=== PATIENT | female | born 1965 | race Caucasian/White ===

== ENCOUNTER → 2020-08-22 | Outpatient (CLI) | payer OTHER ==
--- NOTE | 2020-08-23 21:22 | CT ---
EXAMINATION TYPE: CT abdomen pelvis w con DATE OF EXAM: 08/22/2020 COMPARISON: None INDICATION: Generalized pain with nausea. DLP: 5389.3 mGycm, Automated exposure control for dose reduction was used. CONTRAST: 100 mL of Isovue 300. Study performed with Oral Contrast TECHNIQUE: Axial images were obtained from above the diaphragm to the pubic rami in the axial plane a t 5 mm thick sections. Reconstructed images are reviewed on the computer in the coronal plane. FINDINGS: Limited CT sections are obtained the lung bases. The lung bases are clear. CT ABDOMEN: Liver: Normal Spleen: There is a splenule anterior to the spleen. The spleen appears unremarkable. Pancreas: Normal Adrenal glands: The adrenal glands are normal. Gallbladder: Gallbladder is surgically absent Kidneys: No masses are evident. No hydronephrosis is present. No cysts are present. Delayed images were obtained through the kidneys, which remain unremarkable. Aorta: Vascular calcification is within the aorta. Inferior vena cava: Normal. CT PELVIS: There is an anterior pelvic wall hernia containing loops of bowel. No obstruction is ident ified. Loops of bowel within the abdomen and pelvis are normal. There are loops of bowel which are incom pletely distended or lack oral contrast limiting their evaluation. Appendix: Not identified. No suspicious dilated tubular structures or inflammatory changes are eviden t. This may reside out of the [id number] within the anterior pelvic wall hernia. Urinary bladder: Normal. Genitourinary structures: Uterus appears normal. There is a large low density left ovarian structure measuring 10.3 x 7.0 cm and 32 Hounsfield units suspicious for a large ovarian cyst. The right adnexa appears normal Osseous structures: No suspicious lytic or sclerotic lesions. Degenerative disc changes are in the lo wer lumbar spine. Some facet hypertrophy is present. IMPRESSIONS: 1. Large pelvic wall hernia containing loops of bowel. No obstruction is identified. 2. Large cystlike area extending from the left adnexal region. This may be a large ovarian cyst. Natividad ent may be at risk for torsion.
== END | disposition home or self-care (01) ==
LOC: RADCTMAIN 09:31
PROVIDERS: ATTEND Surgery Plastic and Reconstructive Surgery
DX: N85.8 Other specified noninflammatory disorders of uterus (principal); K43.9 Ventral hernia without obstruction or gangrene
CPT/HCPCS: 74177; Q9967

== ENCOUNTER 2020-12-08 07:20 | Inpatient (IN) | payer OTHER ==
--- NOTE | 2020-12-07 19:04 | P.GSHP ---
History of Present Illness H&P Date: 12/08/20 CHIEF COMPLAINT: Incisional hernia. HISTORY OF PRESENT ILLNESS: The patient is a 55-year-old female who presents with a history of swelling along the epigastrium. Findings were consistent with incisional hernia. Now she presents for further evaluation and management. PAST MEDICAL HISTORY: Please see list. PAST SURGICAL HISTORY: Please see list. MEDICATIONS: Please see list. ALLERGIES: Please see list. SOCIAL HISTORY: No illicit drug use FAMILY HISTORY: No reports of Crohn disease or ulcerative colitis. REVIEW OF ORGAN SYSTEMS: CONSTITUTIONAL: No reports of fevers or chills. PHYSICAL EXAM: VITAL SIGNS: Stable GENERAL: Well-developed pleasant female in no acute distress. HEENT: No scleral icterus. Extraocular movements grossly intact. Moist buccal mucosa. NECK: Supple without lymphadenopathy. CHEST: Unlabored respirations. Equal bilateral excursions. CARDIOVASCULAR: Regular rate and rhythm. Distal 2+ pulses. ABDOMEN: Protuberant. Extremely large pannus with incisional hernia. MUSCULOSKELETAL: No clubbing, cyanosis, or edema. ASSESSMENT: 1. Incisional ventral hernia. 2. Morbid obesity, BMI 70.4 PLAN: 1. Recommend proceeding with robotic ventral hernia repair with mesh. 2. Benefits and risks of surgical intervention was discussed including poss ibility of open technique. 3. DVT prophylaxis. 4. Antibiotic prophylaxis. 5. Mesh placement also described Past Medical History Past Medical History: Asthma, Heart Failure, COPD, CVA/TIA, Hypertension, Memory Impairment, Myocardial Infarction ([place]) Additional Past Medical History / Comment(s): incisional hernia, hx CVA 2017 and CVA June 22, 2020-generalized weakness and memory impairment, heart murmur,uses oxygen 2 Liters [place],was having heavy menses Jun 2020 Last Myocardial Infarction Date:: 2009 History of Any Multi-Drug Resistant Organisms: None Reported Past Surgical History: Section, Cholecystectomy, Heart Catheterization Additional Past Surgical History / Comment(s): c sections x 3 Past Anesthesia/Blood Transfusion Reactions: No Reported Reaction Additional Past Anesthesia/Blood Transfusion Reaction / Comment(s): no problems with prior blood transfusions Smoking Status: Never smoker - Past Family History Mother Family Medical History: No Reported History Medications and Allergies Home Medications Medication Instructions Recorded Confirmed Type Albuterol Sulfate [Albuterol 1 - 2 puff INHALATION QID PRN 12/05/20 12/05/20 History Sulfate Hfa] Aspirin 325 mg PO DAILY 12/05/20 12/05/20 History Budesonide/Formoterol Fumarate 2 puff INHALATION BID 12/05/20 12/05/20 History [Symbicort 160-4.5 Mcg Inhaler] Cyanocobalamin [Vitamin B-12] 500 mcg PO DAILY 12/05/20 12/05/20 History Diltiazem HCl [Cartia Xt] 300 mg PO QAM 12/05/20 12/05/20 History Ferrous Sulfate [Feosol] 325 mg PO DAILY 12/05/20 12/05/20 History Furosemide [Lasix] 40 mg PO QAM 12/05/20 12/05/20 History Megestrol [Megace] 80 mg PO BID 12/05/20 12/05/20 History lisinopriL [Zestril] 40 mg PO QAM 12/05/20 12/05/20 History Allergies Allergy/AdvReac Type Severity Reaction Status Date / Time cephalexin [From Keflex] Allergy Rash/Hives Verified 12/05/20 13:10 latex Allergy lip and Verified 12/05/20 13:10 tongue swelling Penicillins Allergy Unknown Verified 12/05/20 13:10 Childhood
[~2020-12-08 07:20] MED LIST: CLINDAMYCIN 900 MG in DEXTROSE 5% IN WATER 50 ML IVPB PRN; HEPARIN SODIUM,PORCINE 5,000 UNIT/ML 1 ML VIAL SQ PRN
[2020-12-08] MEDS ORDERED: GABAPENTIN 300 MG CAP PO STA (08:23)
[2020-12-08] MEDS ORDERED: ACETAMINOPHEN TAB 500 MG TAB PO STA (08:23)
[2020-12-08] MEDS ORDERED: LACTATED RINGERS 1,000 ML IV ONE ×2 (08:48→12:16)
[2020-12-08] MEDS ORDERED: LIDOCAINE 1% (10MG/ML) FOR IV START INTRADERMA ONE (08:54)
[2020-12-08] MEDS ORDERED: MELOXICAM 7.5 MG TAB PO ONE (09:00)
[2020-12-08 09:05] LABS: Basophils # (A) 0.1 k/uL (0-0.2); Basophils % (A) 1 %; Eosinophils # (A) 0.4 k/uL (0-0.7); Eosinophils % (A) 4 %; HCT 44.5 % (34.0-46.0); HGB 14.2 gm/dL (11.4-16.0); Hypochromasia Slight; Lymphocytes # (A) 1.9 k/uL (1.0-4.8); Lymphocytes % (A) 18 %; MCH 30.1 pg (25.0-35.0); MCHC 31.9 g/dL (31.0-37.0); MCV 94.1 fL (80.0-100.0); Mean Platelet Volume 8.1; Monocytes # (A) 0.9 k/uL (0-1.0); Monocytes % (A) 8 %; Neutrophils # (A) 7.4 k/uL (1.3-7.7); Neutrophils % (A) 68 %; Platelet Count 281 k/uL (150-450); RBC 4.73 m/uL (3.80-5.40); RDW 13.9 % (11.5-15.5); WBC 10.8 k/uL (3.8-10.6)
[2020-12-08] MEDS ORDERED: fentaNYL (PF) 50 MCG/ML 2 ML AMP IV ONE (09:11)
[2020-12-08] MEDS ORDERED: MIDAZOLAM 2 MG/2 ML VIAL IV ONE (09:11)
[2020-12-08 09:14] LABS: Albumin 4.1 g/dL (3.5-5.0); Calcium 9.6 mg/dL (8.4-10.2); Total Bilirubin 0.6 mg/dL (0.2-1.3); Total Protein 7.3 g/dL (6.3-8.2)
--- NOTE | 2020-12-08 10:03 | P.ANPRN ---
Procedure Note - Anesthesia - Nerve Block Performed Bilateral Erector Spinae Single Time Out Performed: Yes Date of Procedure: 12/08/20 Procedure Start Time: :10 Procedure Stop Time: :40 Location of Patient: PreOp Indication: Acute Post-Operative Pain, Requested by Surgeon Sedation Type: Sedate with meaningful contact maintained Preparation: Sterile Prep, Sterile Dressing Position: Sitting Catheter: None Needle Types: Pajunk Needle Gauge: 20 Ultrasound used to visualize needle placement: Yes Ultrasound used to observe medication spread: Yes Injectate: Other (see comment) (Ropivacaine 0.25% 30 ml per side) Blood Aspirated: No Pain Paresthesia on Injection Noted: No Resistance on Injection: Normal Image Stored and Saved: Yes Events: Uneventful and Well Tolerated
[2020-12-08] MEDS ORDERED: PHENYLEPHRINE 10 MG/ML VIAL ONE (10:26)
[2020-12-08] MEDS ORDERED: GLYCOPYRROLATE 0.2 MG/ML 2 ML VIAL ONE (10:26)
[2020-12-08] MEDS ORDERED: ROPIVACAINE 5 MG/ML 30 ML VIAL ONE (10:26)
[2020-12-08] MEDS ORDERED: PROPOFOL 10 MG/ML 20 ML VIAL IV ONE (10:26)
[2020-12-08] MEDS ORDERED: NEOSTIGMINE 1 MG/ML 10 ML VIAL ONE (10:26)
[2020-12-08] MEDS ORDERED: ROCURONIUM 10 MG/ML (10 ML VIAL) IV ONE (10:26)
[2020-12-08] MEDS ORDERED: fentaNYL (PF) 50 MCG/ML 2 ML AMP ONE (10:26)
[2020-12-08] MEDS ORDERED: SUCCINYLCHOLINE CHLORIDE VIAL 200 MG/10 ML VIAL IV ONE (10:26)
[2020-12-08] MEDS ORDERED: DEXAMETHASONE SOD PHOSPHATE 4 MG/ML 1 ML VIAL ONE (10:26)
[2020-12-08] MEDS ORDERED: LIDOCAINE 1% INJ 10MG/ML (20 ML MDV) ONE (10:26)
[2020-12-08] MEDS ORDERED: LIDOCAINE 1%-EPI 1:100,000 20 ML VIAL SQ ONE (10:33)
[2020-12-08] MEDS ORDERED: ALBUTEROL NEBULIZED 2.5 MG/3 ML INHALATION ONE (14:57)
[2020-12-08] MEDS ORDERED: NALOXONE 0.4 MG/ML 1 ML VIAL IV PRN (15:10)
--- NOTE | 2020-12-08 15:10 | P.OP ---
Date of Procedure: 12/08/20 Description of Procedure: SURGEON: DIXIE Little PREOPERATIVE DIAGNOSES: 1. Recurrent incisional incarcerated ventral hernia 2. Super morbid obesity due to excess calories, BMI 70 3. Pre-existing history of myocardial infarction 4. Congestive heart failure 5. Hypertensive heart disease 6. Panniculitis 7. Chronic obstructive pulmonary disease 8. Iron deficiency anemia 9. History of transient ischemic attack POSTOPERATIVE DIAGNOSES: 1. Recurrent lower abdominal incisional incarcerated ventral hernia with large bowel obstruction, 10 x 15 cm 2. Super morbid obesity due to excess calories, BMI 70 3. Pre-existing history of myocardial infarction 4. Congestive heart failure 5. Hypertensive heart disease 6. Panniculitis 7. Chronic obstructive pulmonary disease 8. Iron deficiency anemia 9. History of transient ischemic attack 10. Peritoneal adhesions greater omentum to abdominal wall OPERATION: 1. Robotic-assisted da Rudy Xi laparoscopic repair of initial incarcerated epigastric ventral hernia with mesh, ventralight ST mesh 15.2 cm circular mesh 2. Robotic-assisted da Rudy Xi laparoscopic lysis of adhesions over 1 hour Anesthesia: GETA, regional, local Estimated Blood Loss (ml): 5 Pathology: None COMPLICATIONS: None. Operative Findings: 1. Lower midline incisional hernia incarcerated greater omentum swish cheese defect 10 x 15 cm 2. Recurrent Pfannenstiel incisional hernia with large bowel obstruction incorporating sigmoid colon, 10 x 15 cm 3. Bilateral inguinal hernias fat containing. 4. Extensive greater omental adhesions with incarceration requiring over 1 hour dissection and lysis of 5. Fascia repaired using #1 V-lock suture prior to mesh placement INDICATIONS: The patient is a 55-year-old female who presents with super morbid obesity BMI over 70 including multiple recurrent lower abdominal hernias as well as panniculitis. Patient is deemed high risk due to BMI over 70, pre-existing cardiac disease and moderate panniculus over 40 pounds. Surgical intervention with laparoscopic versus robotic and open techniques were reviewed. Placement of mesh was also reviewed. Benefits and risks were thoroughly described. Informed consent was obtained. DESCRIPTION OF PROCEDURE: The patient was brought into the operating room and laid in supine position. After general induction, the abdomen had been prepped and draped in standard sterile fashion. Ioban draping was also placed. Prior to incision, a timeout protocol was confirmed with surgical team regarding the patient's name including procedures to be performed. The robot was primed prior to the procedure. A field block using local anesthetic was placed along hernia site including the proposed port sites. Initial incision was made with an #11 blade along the left upper quadrant. A 0 degree 5 mm laparoscopic trocar entry was performed and insufflated. Three 8 mm ports were placed along the right lateral abdominal wall under direct visualization. She has extremely moderate-sized pannus requiring extensive positioning as well as additional two 8-mm trochars placed along the upper abdomen. Placements of the ports were 15 cm from the target anatomy and 10 cm apart. Diagnostic laparoscopy demonstrated greater omental adhesions of the lower abd omen incorporating the umbilicus as well as a previous Pfannenstiel incision involving small intestine including large bowel of the sigmoid colon. An accessory 12 mm port was placed at the right upper quadrant for exchange of mesh including sutures. She was repositioned in 5 Trendelenburg position due to her moderately sized pannus. The da Rudy Xi robot was previously primed, prepped and draped then docked from the right side of the patient onto the left side of the patient. I then sat at the robot Da Rudy Xi console where working arms of the robot including Bovie cautery connected to robotic scissors, needle laborer driver, and graspers placed by the regulatory assistant. Incarcerated omental contents were found along the lower midline defect including umbilicus and previous Pfannenstiel incision involving sigmoid colon. The lower midline defect and multiple other smaller defects incarcerated with fat were reduced. The [place]i cheese defect was over 6 cm extending into the deep subcutaneous tissue. A separate fascial defect at her previous Pfannenstiel incision and reopened incorporating the sigmoid colon. The colonic adhesions were dissected free to allow for complete reduction of the colon into the abdominal cavity. The total size of the defects were 15 x 20 cm with multiple pockets and extended to the deep subcutaneous tissue all which were reduced. Separate bilateral inguinal hernias were found and fat containing. The hernia defects were oversewn using #1 nonabsorbable V-lock suture for each defect separately with fascial imbrication x 2. The open hernia defects were completely closed primarily. Next, ventralight ST mesh 15.2 cm circular mesh was cut in half and placed with the rough side towards the abdominal wall as to cover lower midline including Pfannenstiel incisional hernias. 2-0 VLOC 9 inch nonabsorbable sutures were used to fixate the mesh. A final endoscopic imaging was obtained. All instruments and pneumoperitoneum were evacuated from the abdominal cavity. The da Rudy Xi robot was undocked from the patient. I re-scrubbed into the case for closure of incisions. The fascia of the 12-mm port was probed and less than 8-mm in size. The incisio ns were reapproximated using 4-0 Monocryl in an interrupted subcuticular fashion. Liquid glue was applied to the skin after cleansing the skin with normal saline and dilute hydrogen peroxide. An abdominal binder was placed. At the end of the procedure, needle, sponge, and instrument count had been verified correct by surgical dental assistant. The patient was taken to the postanesthesia care unit in stable condition. COMPLEXITY: Overall, patient presents with moderate complexity including super morbid obesity BMI 70.7 as well as multiple recurrent incarcerated hernias, intra-abdominal adhesions and large and small bowel obstruction requiring over 2 hours for repair.
[2020-12-08 15:36] LABS: Glucose,Whole Blood 192 mg/dL (75-99)
[2020-12-08] MEDS ORDERED: SODIUM CHLORIDE 0.9% 1,000 ML IV ONE (16:40)
[2020-12-08] MEDS: CYCLOBENZAPRINE 10 MG TAB PO SCH ×2 (17:36→22:20)
[2020-12-08] MEDS: GABAPENTIN 300 MG CAP PO SCH ×2 (17:36→22:20)
[2020-12-08] MEDS: ACETAMINOPHEN TAB 500 MG TAB PO SCH ×2 (17:37→23:46)
[2020-12-08] MEDS: ONDANSETRON 4 MG/2 ML VIAL IVP SCH ×2 (17:37→23:46)
[2020-12-08] MEDS ORDERED: ACETAMINOPHEN IV (For NPO) 1,000 MG in EMPTY BAG 1 BAG IVPB ONE (18:00)
[2020-12-08] MEDS ORDERED: LEVOFLOXACIN 500MG-D5W PMX 500 MG in DEXTROSE/WATER 1 100ML.BAG IVPB ONE (18:00)
--- NOTE | 2020-12-08 18:10 | P.CONS ---
History of Present Illness - Reason for Consult Consult date: 12/08/20 medical managment - Chief Complaint hernia repair - History of Present Illness 55-year-old female with hx of morbid obesity, COPD, CHF, recent stroke and TIAs. She presents with swelling in the abdomen. She was found to have abdominal incisional hernia. She was admitted to general surgery service. Today she underwent hernia repair. During surgery she was found to have recurrent lower abdominal incisional incarcerated ventral hernia with large bowel obstruction. Currently she is doing well. She is having some abdominal pain. No chest pain or shortness of breath. No fevers or chills. Review of Systems Complete review of system performed, pertinent positives per HPI, otherwise negative Past Medical History Past Medical History: Asthma, Heart Failure, COPD, CVA/TIA, Hypertension, Memory Impairment, Myocardial Infarction ([place]) Additional Past Medical History / Comment(s): incisional hernia, hx CVA 2017 and CVA June 22, 2020-generalized weakness and memory impairment, heart murmur,uses oxygen 2 Liters [place],was having heavy menses Jun 2020 Last Myocardial Infarction Date:: 2009 History of Any Multi-Drug Resistant Organisms: None Reported Past Surgical History: Section, Cholecystectomy, Heart Catheterization Additional Past Surgical History / Comment(s): c sections x 3 Past Anesthesia/Blood Transfusion Reactions: No Reported Reaction Additional Past Anesthesia/Blood Transfusion Reaction / Comm: no problems with prior blood transfusions Past Psychological History: No Psychological Hx Reported Smoking Status: Never smoker Past Alcohol Use History: None Reported Past Drug Use History: None Reported - Past Family History Mother Family Medical History: No Reported History Medications and Allergies Home Medications Medication Instructions Recorded Confirmed Type Albuterol Sulfate [Albuterol 1 - 2 puff INHALATION QID PRN 12/05/20 12/05/20 History Sulfate Hfa] Aspirin 325 mg PO DAILY 12/05/20 12/05/20 History Budesonide/Formoterol Fumarate 2 puff INHALATION BID 12/05/20 12/05/20 History [Symbicort 160-4.5 Mcg Inhaler] Cyanocobalamin [Vitamin B-12] 500 mcg PO DAILY 12/05/20 12/05/20 History Diltiazem HCl [Cartia Xt] 300 mg PO QAM 12/05/20 12/05/20 History Ferrous Sulfate [Feosol] 325 mg PO DAILY 12/05/20 12/05/20 History Furosemide [Lasix] 40 mg PO QAM 12/05/20 12/05/20 History Megestrol [Megace] 80 mg PO BID 12/05/20 12/05/20 History lisinopriL [Zestril] 40 mg PO QAM 12/05/20 12/05/20 History Allergies Allergy/AdvReac Type Severity Reaction Status Date / Time cephalexin [From Keflex] Allergy Rash/Hives Verified 12/08/20 08:23 latex Allergy lip and Verified 12/08/20 08:23 tongue swelling Penicillins Allergy Unknown Verified 12/08/20 08:23 Childhood Physical Exam Vitals: Vital Signs Temp Pulse Pulse Resp BP Pulse Ox 12/08/20 17:04 98.2 F 92 18 151/78 94 L 12/08/20 16:23 90 18 162/70 100 12/08/20 16:08 89 18 164/70 99 12/08/20 15:53 91 18 155/72 99 12/08/20 15:38 90 18 148/65 99 12/08/20 15:23 92 16 167/70 98 12/08/20 15:08 90 12 160/69 100 12/08/20 14:53 97.1 F L 93 8 L 159/72 93 L 12/08/20 08:28 98.2 F 76 16 161/73 95 Intake and Output 12/08/20 12/08/20 12/08/20 06:59 14:59 22:59 Intake Total 1955 130 Output Total 5 Balance 1950 130 Intake: IV 1955 130 Output: Estimated Blood Loss 5 Other: Weight 175.3 kg 175.3 kg Constitutional: No acute distress, conversant, pleasant Eyes:Anicteric sclerae, moist conjunctiva, no lid-lag, PERRLA, ENMT: Oropharynx clear, no erythema, exudates Neck: Supple, FROM, no masses, or JVD, No carotid bruits, No thyromegaly Lungs: Clear to auscultation, Clear to percussion, Normal respiratory effort, no accessory muscle use Cardiovascular: Heart regular in rate and rhythm, No murmurs, gallops, or rubs, No peripheral edema Abdominal: Surgical dressings, no guarding, rebound or rigidity, Normoactive bowel sounds, No hepatomegaly, No splenomegaly, No palpable mass Skin: Normal temperature, tone, texture, turgor, no induration, No subcutaneous nodules, No rash, lesions, No ulcers Extremities: No digital cyanosis, No clubbing, Pedal pulses intact and symmetric al, Radial pulses intact and symmetrical, No calf tenderness Psychiatric: Alert and oriented to person, place and time, appropriate affect, intact judgement Neuro: Muscles Strength 5/5 in all 4 extremities, Sensation to light touch grossly present throughout, Cranial nerves II-XII grossly intact, no focal sensory deficits Results CBC & Chem 7: 12/08/20 08:46 12/08/20 08:46 Labs: Abnormal Lab Results - Last 24 Hours (Table) 12/08/20 12/08/20 12/08/20 Range/Units 08:46 08:46 15:33 WBC 10.8 H (3.8-10.6) k/uL Chloride 108 H (98-107) mmol/L BUN 35 H (7-17) mg/dL Creatinine 1.92 H (0.52-1.04) mg/dL Glucose 152 H (74-99) mg/dL POC Glucose (mg/dL) 192 H (75-99) mg/dL Assessment and Plan Plan: Recurrent lower abdominal incisional incarcerated ventral hernia with large bowel obstruction Pain control per surgery service Started on Levaquin by general surgery service Add Flagyl for anaerobic coverage COPD on 2L at baseline Continue home inhalers. Incentive spirometry Morbid obesity Structured outpatient weight loss Chronic Asthma, CHF Hx of CVA/TIA, Hypertension, All stable resume meds DVT prophylaxis Start AC as soon as ok by surgery.
[2020-12-08] MEDS: metroNIDAZOLE-NS PMX 500 MG in SALINE 1 100ML.BAG IVPB SCH (19:13)
[2020-12-08] MEDS: MEGESTROL 40 MG TAB PO SCH (19:15)
[2020-12-08] MEDS: DOCUSATE 100 MG CAP PO SCH (19:15)
[2020-12-08] MEDS: SYMBICORT 160-4.5 MCG INHALER INHALATION SCH (19:38)
[2020-12-09] MEDS: metroNIDAZOLE-NS PMX 500 MG in SALINE 1 100ML.BAG IVPB SCH ×3 (02:47→19:41)
[2020-12-09] MEDS: ACETAMINOPHEN TAB 500 MG TAB PO SCH ×3 (06:07→18:18)
[2020-12-09] MEDS: ONDANSETRON 4 MG/2 ML VIAL IVP SCH ×3 (06:08→18:19)
[2020-12-09] MEDS: FERROUS SULFATE 325 MG TAB PO SCH (08:17)
[2020-12-09] MEDS: MEGESTROL 40 MG TAB PO SCH ×2 (08:17→21:25)
[2020-12-09] MEDS: GABAPENTIN 300 MG CAP PO SCH ×3 (08:17→21:25)
[2020-12-09] MEDS: CYCLOBENZAPRINE 10 MG TAB PO SCH ×3 (08:18→21:25)
[2020-12-09] MEDS: ENOXAPARIN 40 MG/0.4 ML SYRINGE SQ SCH (08:18)
[2020-12-09] MEDS: ASPIRIN 325 MG TAB PO SCH (08:18)
[2020-12-09] MEDS: DOCUSATE 100 MG CAP PO SCH ×2 (08:18→21:25)
[2020-12-09] MEDS: SYMBICORT 160-4.5 MCG INHALER INHALATION SCH ×2 (08:20→20:58)
[2020-12-09] MEDS: IPRATROPIUM-ALBUTEROL 3 ML NEB INHALATION PRN (08:20)
[2020-12-09] MEDS ORDERED: FUROSEMIDE 40 MG TAB PO SCH (09:00)
[2020-12-09] MEDS ORDERED: PANTOPRAZOLE 40 MG/10 ML VIAL IV SCH (09:00)
[2020-12-09] MEDS ORDERED: lisinopriL 20 MG TAB PO SCH (09:00)
[2020-12-09] MEDS: DILTIAZEM CD 300 MG CAP.ER.24H PO SCH (09:01)
--- NOTE | 2020-12-09 12:00 | P.NPCON ---
History of Present Illness - Reason for Consult acute renal failure - History of Present Illness Reason for consultation: Acute kidney injury History of present illness: Patient is a 55-year-old female seen in consultation for acute kidney injury. Patient has history of swelling along the epigastrium. She is noted to have incisional ventral hernia. She underwent surgical intervention on December 08. Creatinine yesterday was noted to be 1.92. Labs from today are pending. She does a history of high blood pressure and is maintained on Cardizem, lisinopril as well as Lasix. Blood pressure this admission has been stable. Oral intake is good. Good urine output. No hematuria or dysuria. No vomiting or diarrhea. She is tolerating regular diet. Denies regular use of nonsteroidals. She did receive a dose of meloxicam yesterday. Denies any personal history of kidney disease. Denies family history of kidney disease. No history of diabetes. Vital signs are stable. General: The patient appeared well nourished and normally developed. HEENT: Head exam is unremarkable. Neck is without jugular venous distension. LUNGS: Breath sounds decreased. HEART: Rate and Rhythm are regular. ABDOMEN: Soft, mild tenderness. EXTREMITITES: No edema. Past Medical History Past Medical History: Asthma, Heart Failure, COPD, CVA/TIA, Hypertension, Memory Impairment, Myocardial Infarction ([place]) Additional Past Medical History / Comment(s): incisional hernia, hx CVA 2017 and CVA June 22, 2020-generalized weakness and memory impairment, heart murmur,uses oxygen 2 Liters [place],was having heavy menses Jun 2020 Last Myocardial Infarction Date:: 2009 History of Any Multi-Drug Resistant Organisms: None Reported Past Surgical History: Section, Cholecystectomy, Heart Catheterization Additional Past Surgical History / Comment(s): c sections x 3 Past Anesthesia/Blood Transfusion Reactions: No Reported Reaction Additional Past Anesthesia/Blood Transfusion Reaction / Comment(s): no problems with prior blood transfusions Past Psychological History: No Psychological Hx Reported Smoking Status: Never smoker Past Alcohol Use History: None Reported Past Drug Use History: None Reported - Past Family History Mother Family Medical History: No Reported History Medications and Allergies Home Medications Medication Instructions Recorded Confirmed Type Albuterol Sulfate [Albuterol 1 - 2 puff INHALATION QID PRN 12/05/20 12/05/20 History Sulfate Hfa] Aspirin 325 mg PO DAILY 12/05/20 12/05/20 History Budesonide/Formoterol Fumarate 2 puff INHALATION BID 12/05/20 12/05/20 History [Symbicort 160-4.5 Mcg Inhaler] Cyanocobalamin [Vitamin B-12] 500 mcg PO DAILY 12/05/20 12/05/20 History Diltiazem HCl [Cartia Xt] 300 mg PO QAM 12/05/20 12/05/20 History Ferrous Sulfate [Feosol] 325 mg PO DAILY 12/05/20 12/05/20 History Furosemide [Lasix] 40 mg PO QAM 12/05/20 12/05/20 History Megestrol [Megace] 80 mg PO BID 12/05/20 12/05/20 History lisinopriL [Zestril] 40 mg PO QAM 12/05/20 12/05/20 History Allergies Allergy/AdvReac Type Severity Reaction Status Date / Time cephalexin [From Keflex] Allergy Rash/Hives Verified 12/08/20 08:23 latex Allergy lip and Verified 12/08/20 08:23 tongue swelling Penicillins Allergy Unknown Verified 12/08/20 08:23 Childhood Physical Exam Vitals: Vital Signs Temp Pulse Pulse Pulse Resp BP Pulse Ox 12/09/20 11:00 97.3 F L 92 19 123/68 95 12/09/20 08:30 77 12/09/20 08:20 76 12/09/20 03:46 98.5 F 97 16 125/69 94 L 12/08/20 22:36 98.2 F 93 16 144/77 96 12/08/20 19:26 18 12/08/20 17:04 98.2 F 92 18 151/78 94 L 12/08/20 16:23 90 18 162/70 100 12/08/20 16:08 89 18 164/70 99 12/08/20 15:53 91 18 155/72 99 12/08/20 15:38 90 18 148/65 99 12/08/20 15:23 92 16 167/70 98 12/08/20 15:08 90 12 160/69 100 12/08/20 14:53 97.1 F L 93 8 L 159/72 93 L Intake and Output 12/08/20 12/09/20 12/09/20 22:59 06:59 14:59 Intake Total 650 800 Balance 650 800 Intake: IV 130 Intake, IV Titration 100 440 Amount Levofloxacin 500Mg-D5w 100 Pmx 500 mg In Dextrose/ Water 1 100ml.bag @ 100 mls/hr IVPB ONCE ONE Rx#: [id number] Sodium Chloride 0.9% 1, 240 000 ml @ 0 mls/hr IV .STK -MED ONE Rx#:[id number] metroNIDAZOLE-NS PMX 500 200 mg In Saline 1 100ml.bag @ 100 mls/hr IVPB Q8H [facility] [place] Rx#:[id number] Oral 420 360 Other: Voiding Method Toilet # Voids 1 Weight 175.3 kg Results - Lab Results Most recent lab results Calcium 9.6 mg/dL (8.4-10.2) 12/08/20 08:46 12/08/20 08:46 12/08/20 08:46 Assessment and Plan Plan: Assessment: 1. Acute kidney injury mostly prerenal from diuretics and further worsened with the use of nonsteroidal and HA inhibitor. Creatinine 1.9 yesterday. Unknown baseline renal function. 2. Benign hypertension. Controlled. 3. Status post ventral hernia repair 12/08/2020. Plan: Hold lisinopril for systolic blood pressure less than 130. Hold Lasix. She already received this morning's dose. Encourage oral intake. Avoid nephrotoxins. Check urinalysis. Check renal ultrasound. Continue to monitor renal function and urine output. Thank you for the consultation. I will continue to follow the patient with you during her hospital stay.
--- NOTE | 2020-12-09 12:14 | P.PN ---
Subjective Progress Note Date: 12/09/20 CHIEF COMPLAINT: Recurrent incarcerated incisional hernia HISTORY OF PRESENT ILLNESS: The patient is a 55-year-old female with large recurrent incarcerated incisional hernia including super morbid obesity, BMI 70.7. Yesterday preoperatively she was found to have elevated creatinine with renal insufficiency. She has pre-existing heart disease including recent stroke less than 1 year ago. As result of pre-existing sleep apnea, stroke, heart disease, renal insufficiency, patient was admitted following surgery. She denies any pre-existing history of known kidney dysfunction as she presented with elevated WBC and elevated creatinine. She is pleased with her cosmetic result following surgery. ROS: No reports of nausea and vomiting. No bowel movements. No fevers or chills. No new chest pain. No productive sputum PHYSICAL EXAM: VITAL SIGNS: Reviewed CONSTITUTIONAL: Well developed and in no acute distress. EYES: Conjuctivae without sclera icterus. Extraocular movements grossly intact. HEAD, EARS, NOSE, THROAT: Moist buccal mucosa. Head is atraumatic, normocephalic. Hears conversational speech. No nasal drainage. NECK: Supple. No thyroidomegaly. RESPIRATORY: Non-labored respirations and equal bilateral excursions. CARDIOVASCULAR: Palpable 2+ radial pulses. ABDOMEN: Incisions clean dry and intact. Soft. No peritonitis. Abdominal binder poorly fitted and removed by me. Pannus over 40+ pounds. Grade 5 panniculus. MUSCULOSKELETAL: No gross deformity of the lower extremities noted. No clubbing. No cyanosis. SKIN: Good skin turgor. Well perfused. NEUROLOGIC: Cranial nerves II through XII grossly intact. No focal or lateralizing signs. PSYCH: Appropriate affect. Alert and oriented to person, place and time. CLINICAL LABS: White blood cell count at 10.8 on admission, elevated. Creatinine elevated 1.92. ASSESSMENT: 1. Large recurrent incarcerated incisional hernia with bowel obstruction 2. Grade 5 panniculus 3. Renal insufficiency, stage 3, present on admission 4. Severe hypopnea with obstructive sleep apnea 5. Super morbid obesity, BMI 70+ 6. History of congestive heart failure with coronary artery disease. PLAN: 1. Recommend full inpatient admission secondary to recent patient of large recurrent incarcerated incisional hernia with bowel obstruction. 2. Medicine consultation for multiple medical comorbidities 3. Pulmonary consultation for severe hypoxemia sleep apnea syndrome, pre- existing 4. Nephrology consultation for renal insufficiency, present on admission 5. Cardiology consultation for congestive heart failure 6. Bariatric referral with dietitian 7. Inpatient hospitalization over 3 to 4 nights described 8. Care plan discussed with patient including over the phone. Objective - Vital Signs Vital signs: Vital Signs Temp 98.5 F 12/09/20 03:46 Pulse 77 12/09/20 08:30 Resp 16 12/09/20 03:46 BP 125/69 12/09/20 03:46 Pulse Ox 94 L 12/09/20 03:46 Intake & Output 12/08/20 12/09/20 12/09/20 18:59 06:59 18:59 Intake Total 2186 1220 Output Total 5 Balance 2181 1220 Weight 175.3 kg Intake: IV 2086 Intake, IV Titration 100 440 Amount Levofloxacin 500Mg-D5w 100 Pmx 500 mg In Dextrose/ Water 1 100ml.bag @ 100 mls/hr IVPB ONCE ONE Rx#: [id number] Sodium Chloride 0.9% 1, 240 000 ml @ 0 mls/hr IV .STK -MED ONE Rx#:[id number] metroNIDAZOLE-NS PMX 500 200 mg In Saline 1 100ml.bag @ 100 mls/hr IVPB Q8H [facility] Rx#:[id number] Oral 780 Output: Estimated Blood Loss 5 Other: # Voids 1 - Labs CBC & Chem 7: 12/08/20 08:46 12/08/20 08:46 Labs: Abnormal Lab Results - Last 24 Hours (Table) 12/08/20 Range/Units 15:33 POC Glucose (mg/dL) 192 H (75-99) mg/dL Assessment and Plan (1) Stage III chronic kidney disease Current Visit: Yes Status: Acute Code(s): N18.30 - CHRONIC KIDNEY DISEASE, STAGE 3 UNSPECIFIED SNOMED Code(s): 321638380 (2) Obstructive sleep apnea hypopnea, moderate Current Visit: Yes Status: Acute Code(s): G47.33 - OBSTRUCTIVE SLEEP APNEA (ADULT) (PEDIATRIC) SNOMED Code(s): 19095239 (3) Abdominal adhesions Current Visit: Yes Status: Acute Code(s): K66.0 - PERITONEAL ADHESIONS (POSTPROCEDURAL) (POSTINFECTION) SNOMED Code(s): 302979542 (4) Morbid obesity with BMI of 70 and over, adult Current Visit: Yes Status: Acute Code(s): E66.01 - MORBID (SEVERE) OBESITY DUE TO EXCESS CALORIES; Z68.45 - BODY MASS INDEX [BMI] 70 OR GREATER, ADULT SNOMED Code(s): 948489805 (5) Recurrent incisional hernia with incarceration Current Visit: Yes Status: Acute Code(s): K43.0 - INCISIONAL HERNIA WITH OBSTRUCTION, WITHOUT GANGRENE SNOMED Code(s): 499309158 (6) Congestive heart failure with LV diastolic dysfunction, NYHA class 2 Current Visit: Yes Status: Acute Code(s): I50.30 - UNSPECIFIED DIASTOLIC (CONGESTIVE) HEART FAILURE SNOMED Code(s): 681047591
[2020-12-09 12:23] LABS: African American GFR (CKD) 32.2 (60.0-200.0); Albumin/Globulin Ratio 1.67 (1.60-3.17); Anion Gap 7.5 mmol/L (4.00-12.00); BUN/Creat Ratio 20.5 Ratio (12.00-20.00); Calcium 9.6 mg/dL (8.7-10.3); Carbon Dioxide 23.5 mmol/L (21.6-31.8); Globulin 2.4 g/dL (1.6-3.3); Non-African American GFR(CKD) 27.8 (60.0-200.0); Potassium 5.7 mmol/L (3.5-5.5); Total Bilirubin 0.3 mg/dL (0.2-1.2); Total Protein 6.4 g/dL (6.2-8.2)
[2020-12-09 13:00] LABS: ABG Base Excess -5.2 mmol/L; ABG HCO3 21 mmol/L (21-25); ABG Oxygen Saturation 92.7 % (94-97); ABG PCO2 40 mmHg (35-45); ABG PH 7.33 (7.35-7.45); ABG PO2 70 mmHg (83-108); ABG TCO2 22 mmol/L (19-24); Allen Test Performed? Yes
--- NOTE | 2020-12-09 14:26 | P.CNPUL ---
History of Present Illness Consult date: 12/09/20 Requesting physician: Emiliana Briseno Reason for consult: dyspnea, obstructive sleep apnea Chief complaint: Possible sleep apnea syndrome, pickwickian syndrome. History of present illness: 55-year-old female who we are asked to see for possible sleep apnea syndrome/pickwickian syndrome. The patient apparently underwent a repair of an abdominal incisional incarcerated ventral hernia. It was done by Dr. Briseno. The surgery was done yesterday. Today's postop day #1. The patient is mo rbidly obese, and has a history of heart failure, hypertension, and underlying COPD. In addition, the patient likely has sleep apnea syndrome, and/or pickwickian syndrome. Today, the patient is a bit sleepy. She apparently required CPAP on a previous admission. The procedure was a robotically assisted laparoscopic repair of incarcerated ventral hernia with mesh. Currently, the patient is on 2 L of oxygen. Saturations are 95%. We wrote orders for her to be on BiPAP tonight, with an IPAP of 12 and EPAP of 4. She will need outpatient evaluation for possible sleep apnea, and/or pickwickian syndrome. During this hospitalization, narcotics, sedatives, hypnotics, and tranquilizers should be avoided if possible. The patient should be encouraged to deep breathe, cough, and clear secretions, and also use an incentive spirometer, every hour while awake. In addition, we will make sure the patient has Symbicort and albuterol, which is what she takes at home. Review of Systems REVIEW OF SYSTEMS: CONSTITUTIONAL: Excessive daytime sleepiness. NEUROLOGIC: [ Negative.] HEENT: [ Negative.] CARDIAC: [Negative.] PULMONARY: Shortness of breath on exertion. GI: Abdominal pain from recent surgery. : [Negative.] RHEUMATOLOGIC: [ Negative.] IMMUNOLOGIC: [ Negative.] ENDOCRINE: [Negative. ] DERMATOLOGIC: [Negative.] Past Medical History Past Medical History: Asthma, Heart Failure, COPD, CVA/TIA, Hypertension, Memory Impairment, Myocardial Infarction ([place]) Additional Past Medical History / Comment(s): incisional hernia, hx CVA 2017 and CVA June 22, 2020-generalized weakness and memory impairment, heart murmur,uses oxygen 2 Liters [place],was having heavy menses Jun 2020 Last Myocardial Infarction Date:: 2009 History of Any Multi-Drug Resistant Organisms: None Reported Past Surgical History: Section, Cholecystectomy, Heart Catheterization Additional Past Surgical History / Comment(s): c sections x 3 Past Anesthesia/Blood Transfusion Reactions: No Reported Reaction Additional Past Anesthesia/Blood Transfusion Reaction / Comment(s): no problems with prior blood transfusions Past Psychological History: No Psychological Hx Reported Smoking Status: Never smoker Past Alcohol Use History: None Reported Past Drug Use History: None Reported - Past Family History Mother Family Medical History: No Reported History Medications and Allergies Home Medications Medication Instructions Recorded Confirmed Type Albuterol Sulfate [Albuterol 1 - 2 puff INHALATION QID PRN 12/05/20 12/05/20 History Sulfate Hfa] Aspirin 325 mg PO DAILY 12/05/20 12/05/20 History Budesonide/Formoterol Fumarate 2 puff INHALATION BID 12/05/20 12/05/20 History [Symbicort 160-4.5 Mcg Inhaler] Cyanocobalamin [Vitamin B-12] 500 mcg PO DAILY 12/05/20 12/05/20 History Diltiazem HCl [Cartia Xt] 300 mg PO QAM 12/05/20 12/05/20 History Ferrous Sulfate [Feosol] 325 mg PO DAILY 12/05/20 12/05/20 History Furosemide [Lasix] 40 mg PO QAM 12/05/20 12/05/20 History Megestrol [Megace] 80 mg PO BID 12/05/20 12/05/20 History lisinopriL [Zestril] 40 mg PO QAM 12/05/20 12/05/20 History Allergies Allergy/AdvReac Type Severity Reaction Status Date / Time cephalexin [From Keflex] Allergy Rash/Hives Verified 12/08/20 08:23 latex Allergy lip and Verified 12/08/20 08:23 tongue swelling Penicillins Allergy Unknown Verified 12/08/20 08:23 Childhood Physical Exam Osteopathic Statement: *. No significant issues noted on an osteopathic structural exam other than those noted in the History and Physical/Consult. Vitals: Vital Signs Temp Pulse Pulse Pulse Resp BP Pulse Ox 12/09/20 11:00 97.3 F L 92 19 123/68 95 12/09/20 08:30 77 12/09/20 08:20 76 12/09/20 03:46 98.5 F 97 16 125/69 94 L 12/08/20 22:36 98.2 F 93 16 144/77 96 12/08/20 19:26 18 12/08/20 17:04 98.2 F 92 18 151/78 94 L 12/08/20 16:23 90 18 162/70 100 12/08/20 16:08 89 18 164/70 99 12/08/20 15:53 91 18 155/72 99 12/08/20 15:38 90 18 148/65 99 12/08/20 15:23 92 16 167/70 98 12/08/20 15:08 90 12 160/69 100 12/08/20 14:53 97.1 F L 93 8 L 159/72 93 L Intake and Output 12/08/20 12/09/20 12/09/20 22:59 06:59 14:59 Intake Total 650 800 Balance 650 800 Intake: IV 130 Intake, IV Titration 100 440 Amount Levofloxacin 500Mg-D5w 100 Pmx 500 mg In Dextrose/ Water 1 100ml.bag @ 100 mls/hr IVPB ONCE ONE Rx#: [id number] Sodium Chloride 0.9% 1, 240 000 ml @ 0 mls/hr IV .STK -MED ONE Rx#:[id number] metroNIDAZOLE-NS PMX 500 200 mg In Saline 1 100ml.bag @ 100 mls/hr IVPB Q8H [facility] Rx#:[id number] Oral 420 360 Other: Voiding Method Toilet # Voids 1 Weight 175.3 kg No acute distress, oriented 3. The patient is a bit lethargic and somnolent. She is wearing O2 at 2 L. HEENT examination is grossly unremarkable. Mucous membranes are moist. No oral lesions. Neck supple. Full range of motion. No adenopathy thyromegaly or neck vein distention. Cardiovascular examination reveals regular rhythm rate. S1-S2 normal. No S3 or S4. No discernible murmur noted. Heart rate is 77 bpm. Heart sounds are distant. Lungs reveal diminished bilateral breath sounds. A few scattered rhonchi. No wheezes or crackles. Abdomen soft bowel sounds are heard. No masses or tenderness. Extremities are intact. No cyanosis clubbing or edema. Skin is without rash or lesion. Neurologic examination is brief but nonfocal. Results - Laboratory Findings CBC and BMP: 12/08/20 08:46 12/09/20 06:56 ABG ABG pH 7.33 (7.35-7.45) L 12/09/20 12:36 ABG pCO2 40 mmHg (35-45) 12/09/20 12:36 ABG pO2 70 mmHg (83-108) L 12/09/20 12:36 ABG O2 Saturation 92.7 % (94-97) L 12/09/20 12:36 Abnormal lab findings: Abnormal Labs 12/08/20 12/08/20 12/08/20 08:46 08:46 15:33 WBC 10.8 H ABG pH ABG pO2 ABG O2 Saturation Potassium Chloride 108 H BUN 35 H Creatinine 1.92 H Est GFR (CKD-EPI)AfAm Est GFR (CKD-EPI)NonAf BUN/Creatinine Ratio Glucose 152 H POC Glucose (mg/dL) 192 H 12/09/20 12/09/20 06:56 12:36 WBC ABG pH 7.33 L ABG pO2 70 L ABG O2 Saturation 92.7 L Potassium 5.7 H Chloride BUN 41.0 H Creatinine 2.0 H Est GFR (CKD-EPI)AfAm 32.2 L Est GFR (CKD-EPI)NonAf 27.8 L BUN/Creatinine Ratio 20.50 H Glucose 196 H POC Glucose (mg/dL) Assessment and Plan Assessment: Postop day #1, status post robotically assisted repair of incarcerated ventral hernia. Morbid obesity. Probable obstructive sleep apnea syndrome and/or pickwickian syndrome (obesity/hypoventilation syndrome 0. History of chronic bronchial asthma. History of heart failure. History of CVA. History of essential hypertension. History of myocardial infarction. Chronic hypoxemic respiratory failure. Lifelong nontobacco user. Plan: Plan dated 12/09/2020. The patient should be instructed to use Symbicort 160/4.5, 2 puffs twice a day, and albuterol, 2 puffs when necessary. In addition, the patient should be instructed to deep breathe, cough, and clear secretions. If possible, narcotics, sedatives, hypnotics, and tranquilizers should be avoided. She will need outpatient evaluation for her sleep apnea syndrome. We would be happy to see her once discharged. In our office, the patient would have a complete pulmonary function test, a 6 minute walk distance, and likely be set up for a in home or outpatient polysomnogram. We will continue to follow this patient. Finally, we did put in orders for BiPAP tonight, with an IPAP of 12 and EPAP of 4, and an FiO2 that maintains a saturation between 90 and 93%. Time with Patient: Greater than 30
[2020-12-09] MEDS ORDERED: SODIUM POLYSTYRENE SULFONATE 15 GM/60 ML BOTTLE PO STA (14:31)
--- NOTE | 2020-12-09 14:37 | P.PN ---
Subjective Progress Note Date: 12/09/20 Principal diagnosis: Incarcerated hernia Patient is doing okay today, she was sitting on the chair, ate all of her lunch. No fevers or chills. No shortness of breath. Pain is controlled. Objective - Vital Signs Vital signs: Vital Signs Temp 97.3 F L 12/09/20 11:00 Pulse 92 12/09/20 11:00 Resp 19 12/09/20 11:00 BP 123/68 12/09/20 11:00 Pulse Ox 95 12/09/20 11:00 Intake & Output 12/08/20 12/09/20 12/09/20 18:59 06:59 18:59 Intake Total 2186 1220 Output Total 5 Balance 2181 1220 Weight 175.3 kg Intake: IV 2086 Intake, IV Titration 100 440 Amount Levofloxacin 500Mg-D5w 100 Pmx 500 mg In Dextrose/ Water 1 100ml.bag @ 100 mls/hr IVPB ONCE ONE Rx#: [id number] Sodium Chloride 0.9% 1, 240 000 ml @ 0 mls/hr IV .STK -MED ONE Rx#:[id number] metroNIDAZOLE-NS PMX 500 200 mg In Saline 1 100ml.bag @ 100 mls/hr IVPB Q8H [facility] Rx#:[id number] Oral 780 Output: Estimated Blood Loss 5 Other: Voiding Method Toilet # Voids 1 - Labs CBC & Chem 7: 12/08/20 08:46 12/09/20 06:56 Labs: Abnormal Lab Results - Last 24 Hours (Table) 12/08/20 12/09/20 12/09/20 Range/Units 15:33 06:56 12:36 ABG pH 7.33 L (7.35-7.45) ABG pO2 70 L (83-108) mmHg ABG O2 Saturation 92.7 L (94-97) % Potassium 5.7 H (3.5-5.5) mmol/L BUN 41.0 H (9.0-27.0) mg/dL Creatinine 2.0 H (0.6-1.5) mg/dL Est GFR (CKD-EPI)AfAm 32.2 L (60.0-200.0) Est GFR (CKD-EPI)NonAf 27.8 L (60.0-200.0) BUN/Creatinine Ratio 20.50 H (12.00-20.00) Ratio Glucose 196 H (70-110) mg/dL POC Glucose (mg/dL) 192 H (75-99) mg/dL Assessment and Plan Plan: Recurrent lower abdominal incisional incarcerated ventral hernia with large bowel obstruction Pain control per surgery service Continue Levaquin and Flagyl Acute renal failure with hyperkalemia Unknown baseline creatinine Seen by nephrology Kayexalate 30 g 1 today Follow up creatinine and potassium in the morning COPD on 2L at baseline Continue home inhalers. Incentive spirometry Seen by pulmonary Morbid obesity Structured outpatient weight loss Chronic Asthma, CHF Hx of CVA/TIA, Hypertension, All stable resume meds DVT prophylaxis Lovenox subcu Anticipated discharge: 2-3 days Disposition: Likely home
[2020-12-09] MEDS: SODIUM CHLORIDE 0.9% 1,000 ML IV SCH (15:15)
[2020-12-09 15:39] VITALS: BMI 70.7
[2020-12-09] MEDS ORDERED: INSULIN REGULAR 100 UNIT/ML VIAL IV ONE (17:06)
[2020-12-09] MEDS ORDERED: DEXTROSE 50% SYRINGE 50 ML IVP STA (17:06)
--- NOTE | 2020-12-09 17:27 | US ---
EXAMINATION TYPE: US kidneys/renal and bladder DATE OF EXAM: 12/09/2020 COMPARISON: NONE CLINICAL HISTORY: josafat. EXAM MEASUREMENTS: Right Kidney: 12.9 x 4.0 x 4.7 cm Left Kidney: 12.6 x 4.3 x 5.4 cm Patient 5'2", 386lbs. Technically difficult, limited study. Right Kidney: Simple appearing cyst measuring 1.2 x 1.1 x 1.2cm. No hydronephrosis. Left Kidney: No hydronephrosis. Bladder: Not seen, due to body habitus. IMPRESSION: No bilateral hydronephrosis.
[2020-12-09] MEDS ORDERED: LEVOFLOXACIN 250MG-D5W PMX 250 MG in DEXTROSE/WATER 1 50ML.BAG IVPB SCH (18:00)
[2020-12-09 18:29] LABS: Appearance,Urine Cloudy (Clear); Bacteria,Urine Occasional /hpf; Bilirubin,Urine Negative (Negative); Blood,Urine Moderate (Negative); Color,Urine Yellow; Glucose,Urine (UA) Negative (Negative); Hyaline Casts,Urine 1 /lpf (0-2); Ketones,Urine Negative (Negative); Leukocyte Esterase,Urine Small (Negative); Mucus,Urine Rare /hpf; Nitrite,Urine Negative (Negative); Protein,Urine Negative (Negative); RBC,Urine 7 /hpf (0-5); Specific Gravity,Urine 1.013 (1.001-1.035); Squamous Epithelial Cell,Urine 3 /hpf (0-4); Urobilinogen,Urine <2.0 mg/dL (<2.0); WBC,Urine 16 /hpf (0-5)
[2020-12-10] MEDS: ACETAMINOPHEN TAB 500 MG TAB PO SCH ×4 (00:06→17:59)
[2020-12-10] MEDS: ONDANSETRON 4 MG/2 ML VIAL IVP SCH ×4 (00:07→17:58)
[2020-12-10] MEDS: SODIUM CHLORIDE 0.9% 1,000 ML IV SCH (00:35)
[2020-12-10] MEDS: metroNIDAZOLE-NS PMX 500 MG in SALINE 1 100ML.BAG IVPB SCH ×3 (03:13→19:24)
[2020-12-10 06:37] LABS: Basophils % (A) 0 %; Eosinophils % (A) 0 %; HCT 38.8 % (34.0-46.0); HGB 11.8 gm/dL (11.4-16.0); Hypochromasia Marked; Lymphocytes % (A) 9 %; MCH 29.5 pg (25.0-35.0); MCHC 30.4 g/dL (31.0-37.0); MCV 97.1 fL (80.0-100.0); Mean Platelet Volume 8.6; Monocytes # (A) 0.7 k/uL (0-1.0); Monocytes % (A) 6 %; Neutrophils # (A) 9.4 k/uL (1.3-7.7); Neutrophils % (A) 84 %; Platelet Count 222 k/uL (150-450); RBC 3.99 m/uL (3.80-5.40); RDW 14.1 % (11.5-15.5); WBC 11.3 k/uL (3.8-10.6)
[2020-12-10] MEDS: SYMBICORT 160-4.5 MCG INHALER INHALATION SCH ×2 (07:13→20:24)
[2020-12-10] MEDS: CYCLOBENZAPRINE 10 MG TAB PO SCH ×3 (07:48→21:30)
[2020-12-10] MEDS: MEGESTROL 40 MG TAB PO SCH ×2 (07:48→21:30)
[2020-12-10] MEDS: PANTOPRAZOLE 40 MG TABLET PO SCH (07:48)
[2020-12-10] MEDS: FERROUS SULFATE 325 MG TAB PO SCH (07:48)
[2020-12-10] MEDS: DOCUSATE 100 MG CAP PO SCH ×2 (07:48→21:30)
[2020-12-10] MEDS: GABAPENTIN 300 MG CAP PO SCH ×3 (07:48→21:30)
[2020-12-10] MEDS: ASPIRIN 325 MG TAB PO SCH (07:48)
[2020-12-10] MEDS: ENOXAPARIN 40 MG/0.4 ML SYRINGE SQ SCH (07:49)
[2020-12-10] MEDS: DILTIAZEM CD 300 MG CAP.ER.24H PO SCH (07:49)
[2020-12-10 09:39] LABS: African American GFR (CKD) 34.3 (60.0-200.0); Anion Gap 6.4 mmol/L (4.00-12.00); BUN/Creat Ratio 23.68 Ratio (12.00-20.00); Calcium 7.8 mg/dL (8.7-10.3); Carbon Dioxide 19.6 mmol/L (21.6-31.8); Magnesium 1.6 mg/dL (1.5-2.4); Non-African American GFR(CKD) 29.6 (60.0-200.0); Potassium 4.8 mmol/L (3.5-5.5)
[2020-12-10] MEDS ORDERED: ceFAZolin 3 GM in SODIUM CHLORIDE 0.9% 100 ML IVPB ONE (10:00)
--- NOTE | 2020-12-10 10:42 | P.PN ---
Subjective Patient is seen in follow-up for acute kidney injury. Renal function stable. Potassium level now normal. She was started on IV fluids yesterday. Lisinopril and Lasix were put discontinued. Oral intake is good. Has been voiding. Blood pressure is stable. Vital signs are stable. General: The patient appeared well nourished and normally developed. HEENT: Head exam is unremarkable. Neck is without jugular venous distension. LUNGS: Breath sounds decreased. HEART: Rate and Rhythm are regular. ABDOMEN: Soft, obese. EXTREMITITES: No edema. Objective - Vital Signs Vital signs: Vital Signs Temp 97.9 F 12/10/20 04:12 Pulse 64 12/10/20 04:12 Resp 20 12/10/20 04:12 BP 110/66 12/10/20 04:12 Pulse Ox 97 12/10/20 04:12 Intake & Output 12/09/20 12/10/20 12/10/20 18:59 06:59 18:59 Intake Total 2089 Balance 2089 Weight 175.3 kg Intake: Intake, IV Titration 900 Amount Sodium Chloride 0.9% 1, 900 000 ml @ 75 mls/hr IV . [id number] [facility] Rx#:[id number] Oral 1190 Other: Voiding Method Toilet Toilet # Voids 1 - Labs CBC & Chem 7: 12/10/20 05:39 12/10/20 05:39 Labs: Abnormal Lab Results - Last 24 Hours (Table) 12/09/20 12/09/20 12/09/20 Range/Units 06:56 12:36 17:38 WBC (3.8-10.6) k/uL MCHC (31.0-37.0) g/dL Neutrophils # (1.3-7.7) k/uL ABG pH 7.33 L (7.35-7.45) ABG pO2 70 L (83-108) mmHg ABG O2 Saturation 92.7 L (94-97) % Potassium 5.7 H (3.5-5.5) mmol/L Chloride (96-109) mmol/L Carbon Dioxide (21.6-31.8) mmol/L BUN 41.0 H (9.0-27.0) mg/dL Creatinine 2.0 H (0.6-1.5) mg/dL Est GFR (CKD-EPI)AfAm 32.2 L (60.0-200.0) Est GFR (CKD-EPI)NonAf 27.8 L (60.0-200.0) BUN/Creatinine Ratio 20.50 H (12.00-20.00) Ratio Glucose 196 H (70-110) mg/dL Calcium (8.7-10.3) mg/dL Urine Appearance Cloudy H (Clear) Urine Blood Moderate H (Negative) Ur Leukocyte Esterase Small H (Negative) Urine RBC 7 H (0-5) /hpf Urine WBC 16 H (0-5) /hpf Urine Bacteria Occasional H (None) /hpf Urine Mucus Rare H (None) /hpf 12/09/20 12/10/20 12/10/20 Range/Units 19:56 05:39 05:39 WBC 11.3 H (3.8-10.6) k/uL MCHC 30.4 L (31.0-37.0) g/dL Neutrophils # 9.4 H (1.3-7.7) k/uL ABG pH (7.35-7.45) ABG pO2 (83-108) mmHg ABG O2 Saturation (94-97) % Potassium 5.6 H (3.5-5.5) mmol/L Chloride 113 H (96-109) mmol/L Carbon Dioxide 19.6 L (21.6-31.8) mmol/L BUN 45.0 H (9.0-27.0) mg/dL Creatinine 1.9 H (0.6-1.5) mg/dL Est GFR (CKD-EPI)AfAm 34.3 L (60.0-200.0) Est GFR (CKD-EPI)NonAf 29.6 L (60.0-200.0) BUN/Creatinine Ratio 23.68 H (12.00-20.00) Ratio Glucose 126 H (70-110) mg/dL Calcium 7.8 L (8.7-10.3) mg/dL Urine Appearance (Clear) Urine Blood (Negative) Ur Leukocyte Esterase (Negative) Urine RBC (0-5) /hpf Urine WBC (0-5) /hpf Urine Bacteria (None) /hpf Urine Mucus (None) /hpf Assessment and Plan Plan: Assessment: 1. Acute kidney injury mostly prerenal from diuretics and further worsened with the use of nonsteroidal and HA inhibitor. Creatinine peaked at 2 this admission and is 1.9 today. Unknown baseline renal function. No proteinuria on UA. No hydronephrosis noted on kidney ultrasound. 2. Benign hypertension. Controlled. 3. Status post ventral hernia repair 12/08/2020. 4. Hyperkalemia secondary to acute kidney injury and lisinopril. Improved. 5. Metabolic acidosis secondary to acute kidney injury and IV fluids. Plan: Continue to hold lisinopril and Lasix. Hep-Lock IV fluids. Add oral bicarb. Encourage oral intake. Avoid nephrotoxins. Continue to monitor renal function and urine output.
--- NOTE | 2020-12-10 12:07 | P.PN ---
Subjective Progress Note Date: 12/10/20 CHIEF COMPLAINT: Recurrent incarcerated incisional hernia HISTORY OF PRESENT ILLNESS: The patient is a 55-year-old female status post repair of large recurrent incarcerated incisional hernia 12/08/2020 including super morbid obesity, BMI 70.7. She presented with pre-existing kidney disease prior to surgery and leukocytosis. Nephrology, medicine and pulmonary consultation was obtained from moderate to severe renal disease, pickwikian syndrome, and multiple medical co-morbidities. Her pain is well controlled. Bariatric dietitian was obtained for weight loss and renal diet adjustment. She is sitting up in chair. ROS: No reports of nausea and vomiting. No fevers or chills. No new chest pain. No productive sputum PHYSICAL EXAM: VITAL SIGNS: Reviewed CONSTITUTIONAL: Well developed and in no acute distress. EYES: Conjuctivae without sclera icterus. Extraocular movements grossly intact. HEAD, EARS, NOSE, THROAT: Moist buccal mucosa. Head is atraumatic, normocephalic. Hears conversational speech. No nasal drainage. RESPIRATORY: Non-labored respirations and equal bilateral excursions. CARDIOVASCULAR: Palpable 2+ radial pulses. ABDOMEN: Incisions clean dry and intact. Soft. No peritonitis. Abdominal binder poorly fitted and removed by me. Pannus over 40+ pounds. Grade 5 pann iculus. MUSCULOSKELETAL: No gross deformity of the lower extremities noted. No clubbing. No cyanosis. SKIN: Good skin turgor. Well perfused. NEUROLOGIC: Cranial nerves II through XII grossly intact. No focal or lateralizing signs. PSYCH: Appropriate affect. Alert and oriented to person, place and time. CLINICAL LABS: White blood cell count at 10.8 on admission, elevated now 11.4. Creatinine elevated 1.92 to 2.0 now 1.9. Potassium down 5.7 to 4.8. REPORTS: US kidney without hydronephrosis EKG: Normal sinus rhythm. ASSESSMENT: 1. Large recurrent incarcerated incisional hernia with bowel obstruction 2. Grade 5 panniculus 3. Renal insufficiency, stage 3, present on admission 4. Severe hypopnea with obstructive sleep apnea 5. Super morbid obesity, BMI 70+ 6. Hyperkalemia 7. Leukocytosis PLAN: 1. Inpatient admission due presentation of large and small bowel obstruction with incisional hernia including kidney disease and severe obstructive sleep apnea. 2. She received Ancef 3 g without any allergic reaction. Will discontinue from allergy list. 3. Discharge pending clearance from multiple specialists 4. Referral to bariatric center as outpatient. Objective - Vital Signs Vital signs: Vital Signs Temp 97.7 F 12/10/20 10:54 Pulse 69 12/10/20 10:54 Resp 18 12/10/20 10:54 BP 120/68 12/10/20 10:54 Pulse Ox 95 12/10/20 10:54 Intake & Output 12/09/20 12/10/20 12/10/20 18:59 06:59 18:59 Intake Total 2089 Balance 2089 Weight 175.3 kg Intake: Intake, IV Titration 900 Amount Sodium Chloride 0.9% 1, 900 000 ml @ 75 mls/hr IV . [id number] [facility] Rx#:[id number] Oral 1190 Other: Voiding Method Toilet Toilet Toilet # Voids 1 - Labs CBC & Chem 7: 12/10/20 05:39 12/10/20 05:39 Labs: Abnormal Lab Results - Last 24 Hours (Table) 12/09/20 12/09/20 12/09/20 Range/Units 06:56 12:36 17:38 WBC (3.8-10.6) k/uL MCHC (31.0-37.0) g/dL Neutrophils # (1.3-7.7) k/uL ABG pH 7.33 L (7.35-7.45) ABG pO2 70 L (83-108) mmHg ABG O2 Saturation 92.7 L (94-97) % Potassium 5.7 H (3.5-5.5) mmol/L Chloride (96-109) mmol/L Carbon Dioxide (21.6-31.8) mmol/L BUN 41.0 H (9.0-27.0) mg/dL Creatinine 2.0 H (0.6-1.5) mg/dL Est GFR (CKD-EPI)AfAm 32.2 L (60.0-200.0) Est GFR (CKD-EPI)NonAf 27.8 L (60.0-200.0) BUN/Creatinine Ratio 20.50 H (12.00-20.00) Ratio Glucose 196 H (70-110) mg/dL Calcium (8.7-10.3) mg/dL Urine Appearance Cloudy H (Clear) Urine Blood Moderate H (Negative) Ur Leukocyte Esterase Small H (Negative) Urine RBC 7 H (0-5) /hpf Urine WBC 16 H (0-5) /hpf Urine Bacteria Occasional H (None) /hpf Urine Mucus Rare H (None) /hpf 12/09/20 12/10/20 12/10/20 Range/Units 19:56 05:39 05:39 WBC 11.3 H (3.8-10.6) k/uL MCHC 30.4 L (31.0-37.0) g/dL Neutrophils # 9.4 H (1.3-7.7) k/uL ABG pH (7.35-7.45) ABG pO2 (83-108) mmHg ABG O2 Saturation (94-97) % Potassium 5.6 H (3.5-5.5) mmol/L Chloride 113 H (96-109) mmol/L Carbon Dioxide 19.6 L (21.6-31.8) mmol/L BUN 45.0 H (9.0-27.0) mg/dL Creatinine 1.9 H (0.6-1.5) mg/dL Est GFR (CKD-EPI)AfAm 34.3 L (60.0-200.0) Est GFR (CKD-EPI)NonAf 29.6 L (60.0-200.0) BUN/Creatinine Ratio 23.68 H (12.00-20.00) Ratio Glucose 126 H (70-110) mg/dL Calcium 7.8 L (8.7-10.3) mg/dL Urine Appearance (Clear) Urine Blood (Negative) Ur Leukocyte Esterase (Negative) Urine RBC (0-5) /hpf Urine WBC (0-5) /hpf Urine Bacteria (None) /hpf Urine Mucus (None) /hpf Assessment and Plan (1) Stage III chronic kidney disease Current Visit: Yes Status: Acute Code(s): N18.30 - CHRONIC KIDNEY DISEASE, STAGE 3 UNSPECIFIED SNOMED Code(s): 704497377 (2) Obstructive sleep apnea hypopnea, moderate Current Visit: Yes Status: Acute Code(s): G47.33 - OBSTRUCTIVE SLEEP APNEA (ADULT) (PEDIATRIC) SNOMED Code(s): 27126212 (3) Abdominal adhesions Current Visit: Yes Status: Acute Code(s): K66.0 - PERITONEAL ADHESIONS (POS TPROCEDURAL) (POSTINFECTION) SNOMED Code(s): 921708038 (4) Morbid obesity with BMI of 70 and over, adult Current Visit: Yes Status: Acute Code(s): E66.01 - MORBID (SEVERE) OBESITY DUE TO EXCESS CALORIES; Z68.45 - BODY MASS INDEX [BMI] 70 OR GREATER, ADULT SNOMED Code(s): 482594055 (5) Recurrent incisional hernia with incarceration Current Visit: Yes Status: Acute Code(s): K43.0 - INCISIONAL HERNIA WITH OBSTRUCTION, WITHOUT GANGRENE SNOMED Code(s): 516960901 (6) Hyperkalemia Current Visit: Yes Status: Acute Code(s): E87.5 - HYPERKALEMIA SNOMED Code(s): 83543893 (7) Pickwickian syndrome Current Visit: Yes Status: Acute Code(s): E66.2 - MORBID (SEVERE) OBESITY WITH ALVEOLAR HYPOVENTILATION SNOMED Code(s): 951838988
[2020-12-10] MEDS: SODIUM BICARBONATE TAB 650 MG TAB PO SCH ×2 (12:12→21:30)
--- NOTE | 2020-12-10 14:38 | P.PN ---
Subjective Progress Note Date: 12/10/20 Principal diagnosis: Incarcerated ventral hernia, status post repair 55-year-old female who we are asked to see for possible sleep apnea syndrome/pickwickian syndrome. The patient apparently underwent a repair of an abdominal incisional incarcerated ventral hernia. It was done by Dr. Briseno. The surgery was done yesterday. Today's postop day #1. The patient is morbidly obese, and has a history of heart failure, hypertension, and underlying COPD. In addition, the patient likely has sleep apnea syndrome, and/or pickwickian syndrome. Today, the patient is a bit sleepy. She apparently required CPAP on a previous admission. The procedure was a robotically assisted laparoscopic repair of incarcerated ventral hernia with mesh. Currently, the patient is on 2 L of oxygen. Saturations are 95%. We wrote orders for her to be on BiPAP tonight, with an IPAP of 12 and EPAP of 4. She will need outpatient evaluation for possible sleep apnea, and/or pickwickian syndrome. During this hospitalization, narcotics, sedatives, hypnotics, and tranquilizers should be avoided if possible. The patient should be encouraged to deep breathe, cough, and clear secretions, and also use an incentive spirometer, every hour while awake. In addition, we will make sure the patient has Symbicort and albuterol, which is what she takes at home. The patient is seen today 12/10/2020 in follow-up on the regular medical floor. She is status post repair of an abdominal incisional incarcerated ventral hernia. Postoperative day #2. She was having some hypoxemia we are consulted for the same. She was placed on BiPAP last night which she tolerated for just a few hours. 12 over 4 and 35% FiO2. She is currently seen up in a chair at the bedside. She is on room air. O2 saturations in the mid 90s. Awake and alert in no acute distress. White count 11.3. Hemoglobin 11.8. Sodium 139. Potassium 4.8. Creatinine 1.9. Troponin negative. ProBNP 290. She remains on Symbicort, DuoNeb inhalations, Lovenox, Flagyl. Objective - Vital Signs Vital signs: Vital Signs Temp 97.7 F 12/10/20 10:54 Pulse 69 12/10/20 10:54 Resp 18 12/10/20 10:54 BP 120/68 12/10/20 10:54 Pulse Ox 95 12/10/20 10:54 Intake & Output 12/09/20 12/10/20 12/10/20 18:59 06:59 18:59 Intake Total 2089 Balance 2089 Weight 175.3 kg Intake: Intake, IV Titration 900 Amount Sodium Chloride 0.9% 1, 900 000 ml @ 75 mls/hr IV . [id number] [facility] Rx#:[id number] Oral 1190 Other: Voiding Method Toilet Toilet Toilet # Voids 1 - Exam GENERAL EXAM: Alert, pleasant, morbidly obese 55-year-old female patient, on kaye m air, comfortable in no apparent distress. HEAD: Normocephalic. EYES: Normal reaction of pupils, equal size. NOSE: Clear with pink turbinates. THROAT: No erythema or exudates. NECK: No masses, no JVD. CHEST: No chest wall deformity. LUNGS: Equal air entry with no crackles, wheeze, rhonchi or dullness. CVS: S1 and S2 normal with no audible murmur, regular rhythm. ABDOMEN: Puncture sites clean and dry well approximated. Morbidly obese unable to appreciate for hepatosplenomegaly, normal bowel sounds, no guarding or rigidity. SPINE: No scoliosis or deformity SKIN: No rashes CENTRAL NERVOUS SYSTEM: No focal deficits, tone is normal in all 4 extremities. EXTREMITIES: There is no peripheral edema. No clubbing, no cyanosis. Peripheral pulses are intact. - Labs CBC & Chem 7: 12/10/20 05:39 12/10/20 05:39 Labs: Abnormal Lab Results - Last 24 Hours (Table) 12/09/20 12/09/20 12/10/20 Range/Units 17:38 19:56 05:39 WBC (3.8-10.6) k/uL MCHC (31.0-37.0) g/dL Neutrophils # (1.3-7.7) k/uL Potassium 5.6 H (3.5-5.1) mmol/L Chloride 113 H (96-109) mmol/L Carbon Dioxide 19.6 L (21.6-31.8) mmol/L BUN 45.0 H (9.0-27.0) mg/dL Creatinine 1.9 H (0.6-1.5) mg/dL Est GFR (CKD-EPI)AfAm 34.3 L (60.0-200.0) Est GFR (CKD-EPI)NonAf 29.6 L (60.0-200.0) BUN/Creatinine Ratio 23.68 H (12.00-20.00) Ratio Glucose 126 H (70-110) mg/dL Calcium 7.8 L (8.7-10.3) mg/dL Urine Appearance Cloudy H (Clear) Urine Blood Moderate H (Negative) Ur Leukocyte Esterase Small H (Negative) Urine RBC 7 H (0-5) /hpf Urine WBC 16 H (0-5) /hpf Urine Bacteria Occasional H (None) /hpf Urine Mucus Rare H (None) /hpf 12/10/20 Range/Units 05:39 WBC 11.3 H (3.8-10.6) k/uL MCHC 30.4 L (31.0-37.0) g/dL Neutrophils # 9.4 H (1.3-7.7) k/uL Potassium (3.5-5.1) mmol/L Chloride (96-109) mmol/L Carbon Dioxide (21.6-31.8) mmol/L BUN (9.0-27.0) mg/dL Creatinine (0.6-1.5) mg/dL Est GFR (CKD-EPI)AfAm (60.0-200.0) Est GFR (CKD-EPI)NonAf (60.0-200.0) BUN/Creatinine Ratio (12.00-20.00) Ratio Glucose (70-110) mg/dL Calcium (8.7-10.3) mg/dL Urine Appearance (Clear) Urine Blood (Negative) Ur Leukocyte Esterase (Negative) Urine RBC (0-5) /hpf Urine WBC (0-5) /hpf Urine Bacteria (None) /hpf Urine Mucus (None) /hpf Assessment and Plan Assessment: 1 Postop day #2, status post robotically assisted repair of incarcerated ventral hernia. 2 Morbid obesity. BMI 70 3 Suspect obstructive sleep apnea syndrome and/or pickwickian syndrome (obesity/hypoventilation syndrome) 4 History of chronic bronchial asthma. 5 History of heart failure. 6 History of CVA. 7 History of essential hypertension. 8 History of myocardial infarction. 9 Chronic hypoxemic respiratory failure. 10 Lifelong nontobacco user. Plan: The patient was seen and evaluated by Dr. Gomez Presently stable from the pulmonary standpoint Encourage cough and deep breathing exercises Continue BiPAP at night as tolerated Outpatient evaluation for suspected obstructive sleep apnea Home once cleared surgically I, the cosigning physician, performed a history & physical examination of the patient. Lungs sounds are clear. Maintaining good O2 saturations in the 90s on room air. I discussed the assessment and plan of care with my nurse practitioner, Pauline Arroyo. I attest to the above note as dictated by her.
--- NOTE | 2020-12-10 17:59 | P.PN ---
Subjective Progress Note Date: 12/10/20 Principal diagnosis: Incarcerated hernia Patient is doing well, denied having any complaint. No significant pain. No shortness of breath. No fevers. Objective - Vital Signs Vital signs: Vital Signs Temp 97.7 F 12/10/20 17:00 Pulse 64 12/10/20 17:00 Resp 19 12/10/20 17:00 BP 122/67 12/10/20 17:00 Pulse Ox 96 12/10/20 17:00 Intake & Output 12/09/20 12/10/20 12/10/20 18:59 06:59 18:59 Intake Total 2089 Balance 2089 Weight 175.3 kg Intake: Intake, IV Titration 900 Amount Sodium Chloride 0.9% 1, 900 000 ml @ 75 mls/hr IV . [id number] [facility] Rx#:[id number] Oral 1190 Other: Voiding Method Toilet Toilet Toilet # Voids 1 - Exam Constitutional: No acute distress, conversant, pleasant Eyes:Anicteric sclerae, moist conjunctiva, no lid-lag, PERRLA, ENMT: Oropharynx clear, no erythema, exudates Neck: Supple, FROM, no masses, or JVD, No carotid bruits, No thyromegaly Lungs: Clear to auscultation, Clear to percussion, Normal respiratory effort, no accessory muscle use Cardiovascular: Heart regular in rate and rhythm, No murmurs, gallops, or rubs, No peripheral edema Abdominal: Surgical dressings, no guarding, rebound or rigidity, Normoactive bowel sounds, No hepatomegaly, No splenomegaly, No palpable mass Skin: Normal temperature, tone, texture, turgor, no induration, No subcutaneous nodules, No rash, lesions, No ulcers Extremities: No digital cyanosis, No clubbing, Pedal pulses intact and symmetrical, Radial pulses intact and symmetrical, No calf tenderness Psychiatric: Alert and oriented to person, place and time, appropriate affect, intact judgement Neuro: Muscles Strength 5/5 in all 4 extremities, Sensation to light touch grossly present throughout, Cranial nerves II-XII grossly intact, no focal sensory deficits - Labs CBC & Chem 7: 12/10/20 05:39 12/10/20 05:39 Labs: Abnormal Lab Results - Last 24 Hours (Table) 12/09/20 12/09/20 12/10/20 Range/Units 17:38 19:56 05:39 WBC (3.8-10.6) k/uL MCHC (31.0-37.0) g/dL Neutrophils # (1.3-7.7) k/uL Potassium 5.6 H (3.5-5.1) mmol/L Chloride 113 H (96-109) mmol/L Carbon Dioxide 19.6 L (21.6-31.8) mmol/L BUN 45.0 H (9.0-27.0) mg/dL Creatinine 1.9 H (0.6-1.5) mg/dL Est GFR (CKD-EPI)AfAm 34.3 L (60.0-200.0) Est GFR (CKD-EPI)NonAf 29.6 L (60.0-200.0) BUN/Creatinine Ratio 23.68 H (12.00-20.00) Ratio Glucose 126 H (70-110) mg/dL Calcium 7.8 L (8.7-10.3) mg/dL Urine Appearance Cloudy H (Clear) Urine Blood Moderate H (Negative) Ur Leukocyte Esterase Small H (Negative) Urine RBC 7 H (0-5) /hpf Urine WBC 16 H (0-5) /hpf Urine Bacteria Occasional H (None) /hpf Urine Mucus Rare H (None) /hpf 12/10/20 Range/Units 05:39 WBC 11.3 H (3.8-10.6) k/uL MCHC 30.4 L (31.0-37.0) g/dL Neutrophils # 9.4 H (1.3-7.7) k/uL Potassium (3.5-5.1) mmol/L Chloride (96-109) mmol/L Carbon Dioxide (21.6-31.8) mmol/L BUN (9.0-27.0) mg/dL Creatinine (0.6-1.5) mg/dL Est GFR (CKD-EPI)AfAm (60.0-200.0) Est GFR (CKD-EPI)NonAf (60.0-200.0) BUN/Creatinine Ratio (12.00-20.00) Ratio Glucose (70-110) mg/dL Calcium (8.7-10.3) mg/dL Urine Appearance (Clear) Urine Blood (Negative) Ur Leukocyte Esterase (Negative) Urine RBC (0-5) /hpf Urine WBC (0-5) /hpf Urine Bacteria (None) /hpf Urine Mucus (None) /hpf Assessment and Plan Plan: Recurrent lower abdominal incisional incarcerated ventral hernia with large bowel obstruction Pain control per surgery service Continue Levaquin and Flagyl Acute renal failure with hyperkalemia Improved Hold lisinopril and Lasix Unknown baseline creatinine Seen by nephrology Follow up creatinine and potassium in the morning COPD on 2L at baseline Continue home inhalers. Incentive spirometry Seen by pulmonary Morbid obesity Structured outpatient weight loss Chronic Asthma, CHF Hx of CVA/TIA, Hypertension, All stable resume meds DVT prophylaxis Lovenox subcu Anticipated discharge: 1-2 days Disposition: Likely home
[2020-12-10] MEDS ORDERED: LEVOFLOXACIN 250 MG TAB PO SCH (18:00)
[2020-12-11] MEDS: ONDANSETRON 4 MG/2 ML VIAL IVP SCH ×3 (00:58→12:05)
[2020-12-11] MEDS: ACETAMINOPHEN TAB 500 MG TAB PO SCH ×3 (00:58→12:04)
[2020-12-11] MEDS: metroNIDAZOLE-NS PMX 500 MG in SALINE 1 100ML.BAG IVPB SCH ×2 (03:06→12:03)
[2020-12-11] MEDS: SYMBICORT 160-4.5 MCG INHALER INHALATION SCH (07:19)
[2020-12-11] MEDS: IPRATROPIUM-ALBUTEROL 3 ML NEB INHALATION PRN ×2 (07:19→11:36)
[2020-12-11] MEDS: MEGESTROL 40 MG TAB PO SCH (08:00)
[2020-12-11] MEDS: PANTOPRAZOLE 40 MG TABLET PO SCH (08:01)
[2020-12-11] MEDS: SODIUM BICARBONATE TAB 650 MG TAB PO SCH (08:01)
[2020-12-11] MEDS: FERROUS SULFATE 325 MG TAB PO SCH (08:01)
[2020-12-11] MEDS: DOCUSATE 100 MG CAP PO SCH (08:01)
[2020-12-11] MEDS: CYCLOBENZAPRINE 10 MG TAB PO SCH (08:01)
[2020-12-11] MEDS: GABAPENTIN 300 MG CAP PO SCH (08:01)
[2020-12-11] MEDS: DILTIAZEM CD 300 MG CAP.ER.24H PO SCH (08:01)
[2020-12-11] MEDS: ASPIRIN 325 MG TAB PO SCH (08:01)
[2020-12-11 08:47] LABS: Basophils % (A) 0 %; Eosinophils # (A) 0.1 k/uL (0-0.7); Eosinophils % (A) 1 %; HCT 45.7 % (34.0-46.0); HGB 13.9 gm/dL (11.4-16.0); Hypochromasia Marked; Lymphocytes # (A) 1.4 k/uL (1.0-4.8); Lymphocytes % (A) 15 %; MCH 29.2 pg (25.0-35.0); MCHC 30.5 g/dL (31.0-37.0); MCV 95.9 fL (80.0-100.0); Mean Platelet Volume 9.2; Monocytes # (A) 0.9 k/uL (0-1.0); Monocytes % (A) 10 %; Neutrophils % (A) 73 %; Platelet Count 233 k/uL (150-450); RBC 4.77 m/uL (3.80-5.40); RDW 14.3 % (11.5-15.5); WBC 9.5 k/uL (3.8-10.6)
[2020-12-11] MEDS ORDERED: ENOXAPARIN 30 MG/0.3 ML SYRINGE SQ SCH (09:00)
--- NOTE | 2020-12-11 09:17 | P.PN ---
Subjective Progress Note Date: 12/11/20 CHIEF COMPLAINT: Recurrent incarcerated incisional hernia HISTORY OF PRESENT ILLNESS: The patient is a 55-year-old female status post repair of large recurrent incarcerated incisional hernia 12/08/2020 with large bowel and small bowel obstruction. Her pain is controlled. She is sitting up in chair. She has been started on CPAP/BiPAP machine per pulmonary. Patient being managed by medicine and nephrology for multiple medical co-morbidities including renal insufficiency. ROS: No reports of nausea and vomiting. No fevers or chills. No new chest pain. Receiving breathing treatments with wet cough. PHYSICAL EXAM: VITAL SIGNS: Reviewed CONSTITUTIONAL: Well developed and in no acute distress. EYES: Conjuctivae without sclera icterus. Extraocular movements grossly intact. HEAD, EARS, NOSE, THROAT: Moist buccal mucosa. Head is atraumatic, normocephalic. Hears conversational speech. No nasal drainage. RESPIRATORY: Non-labored respirations and equal bilateral excursions. CARDIOVASCULAR: Palpable 2+ radial pulses. ABDOMEN: Incisions clean dry and intact. Pannus over 40+ pounds. Grade 5 panniculus. No erythema MUSCULOSKELETAL: No gross deformity of the lower extremities noted. No clubbing. No cyanosis. 2+ edema along left hand. SKIN: Good skin turgor. Well perfused. NEUROLOGIC: Cranial nerves II through XII grossly intact. No focal or lateralizing signs. PSYCH: Appropriate affect. Alert and oriented to person, place and time. CLINICAL LABS: White blood cell count normal today at 9.5. Creatinine is pending. ASSESSMENT: 1. Large recurrent incarcerated incisional hernia with bowel obstruction 2. Grade 5 panniculus 3. Renal insufficiency, stage 3, present on admission 4. Severe hypopnea with obstructive sleep apnea 5. Super morbid obesity, BMI 70+ 6. Hyperkalemia 7. Leukocytosis, now resolved PLAN: 1. New abdominal binder, bariatric ordered. 2. Bariatric referral ordered. 3. Pending clearance from pulmonary, medicine, and nephrology for discharge. 4. Will need adjustment of home medications for renal insufficiency, new. Objective - Vital Signs Vital signs: Vital Signs Temp 98.7 F 12/11/20 04:16 Pulse 76 12/11/20 07:37 Resp 16 12/11/20 04:16 BP 108/56 12/11/20 04:16 Pulse Ox 94 L 12/11/20 04:16 Intake & Output 12/10/20 12/11/20 12/11/20 18:59 06:59 18:59 Intake Total 590 Balance 590 Intake: Oral 590 Other: Voiding Method Toilet Toilet # Voids 1 2 - Labs CBC & Chem 7: 12/11/20 05:11 12/10/20 05:39 Labs: Abnormal Lab Results - Last 24 Hours (Table) 12/10/20 12/11/20 Range/Units 05:39 05:11 MCHC 30.5 L (31.0-37.0) g/dL Chloride 113 H (96-109) mmol/L Carbon Dioxide 19.6 L (21.6-31.8) mmol/L BUN 45.0 H (9.0-27.0) mg/dL Creatinine 1.9 H (0.6-1.5) mg/dL Est GFR (CKD-EPI)AfAm 34.3 L (60.0-200.0) Est GFR (CKD-EPI)NonAf 29.6 L (60.0-200.0) BUN/Creatinine Ratio 23.68 H (12.00-20.00) Ratio Glucose 126 H (70-110) mg/dL Calcium 7.8 L (8.7-10.3) mg/dL Assessment and Plan (1) Stage III chronic kidney disease Current Visit: Yes Status: Acute Code(s): N18.30 - CHRONIC KIDNEY DISEASE, STAGE 3 UNSPECIFIED SNOMED Code(s): 884791601 (2) Obstructive sleep apnea hypopnea, moderate Current Visit: Yes Status: Acute Code(s): G47.33 - OBSTRUCTIVE SLEEP APNEA (ADULT) (PEDIATRIC) SNOMED Code(s): 79216958 (3) Abdominal adhesions Current Visit: Yes Status: Acute Code(s): K66.0 - PERITONEAL ADHESIONS (POSTPROCEDURAL) (POSTINFECTION) SNOMED Code(s): 999506767 (4) Morbid obesity with BMI of 70 and over, adult Current Visit: Yes Status: Acute Code(s): E66.01 - MORBID (SEVERE) OBESITY DUE TO EXCESS CALORIES; Z68.45 - BODY MASS INDEX [BMI] 70 OR GREATER, ADULT SNOMED Code(s): 141257891 (5) Recurrent incisional hernia with incarceration Current Visit: Yes Status: Acute Code(s): K43.0 - INCISIONAL HERNIA WITH OBSTRUCTION, WITHOUT GANGRENE SNOMED Code(s): 564796066 (6) Hyperkalemia Current Visit: Yes Status: Acute Code(s): E87.5 - HYPERKALEMIA SNOMED Code(s): 93663638 (7) Pickwickian syndrome Current Visit: Yes Status: Acute Code(s): E66.2 - MORBID (SEVERE) OBESITY WITH ALVEOLAR HYPOVENTILATION SNOMED Code(s): 970150413
[2020-12-11 09:29] LABS: African American GFR (CKD) 34.3 (60.0-200.0); Anion Gap 6.1 mmol/L (4.00-12.00); BUN/Creat Ratio 25.79 Ratio (12.00-20.00); Calcium 9.2 mg/dL (8.7-10.3); Carbon Dioxide 23.9 mmol/L (21.6-31.8); Magnesium 2.1 mg/dL (1.5-2.4); Non-African American GFR(CKD) 29.6 (60.0-200.0); Potassium 5.3 mmol/L (3.5-5.5)
[2020-12-11] MEDS ORDERED: FUROSEMIDE 20 MG TAB PO SCH (10:30)
--- NOTE | 2020-12-11 10:39 | P.PN ---
Subjective Patient is seen in follow-up for acute kidney injury. Renal function stable. Potassium level slightly on the higher side. Off IV fluids. She was started on IV fluids yesterday. Oral intake is good. Has been voiding. Blood pressure is stable. Vital signs are stable. General: The patient appeared well nourished and normally developed. HEENT: Head exam is unremarkable. Neck is without jugular venous distension. LUNGS: Breath sounds decreased. HEART: Rate and Rhythm are regular. ABDOMEN: Soft, obese. EXTREMITITES: Trace edema. Objective - Vital Signs Vital signs: Vital Signs Temp 98.7 F 12/11/20 04:16 Pulse 76 12/11/20 07:37 Resp 16 12/11/20 04:16 BP 108/56 12/11/20 04:16 Pulse Ox 94 L 12/11/20 04:16 Intake & Output 12/10/20 12/11/20 12/11/20 18:59 06:59 18:59 Intake Total 590 Balance 590 Intake: Oral 590 Other: Voiding Method Toilet Toilet Toilet # Voids 1 2 - Labs CBC & Chem 7: 12/11/20 05:11 12/11/20 05:11 Labs: Abnormal Lab Results - Last 24 Hours (Table) 12/11/20 12/11/20 Range/Units 05:11 05:11 MCHC 30.5 L (31.0-37.0) g/dL Chloride 110 H (96-109) mmol/L BUN 49.0 H (9.0-27.0) mg/dL Creatinine 1.9 H (0.6-1.5) mg/dL Est GFR (CKD-EPI)AfAm 34.3 L (60.0-200.0) Est GFR (CKD-EPI)NonAf 29.6 L (60.0-200.0) BUN/Creatinine Ratio 25.79 H (12.00-20.00) Ratio Glucose 118 H (70-110) mg/dL Assessment and Plan Plan: Assessment: 1. Acute kidney injury mostly prerenal from diuretics and further worsened with the use of nonsteroidal and HA inhibitor. Creatinine peaked at 2 this admission and is stable at 1.9 today. Unknown baseline renal function. No proteinuria on UA. No hydronephrosis noted on kidney ultrasound. 2. Benign hypertension. Controlled. 3. Status post ventral hernia repair 12/08/2020. 4. Hyperkalemia secondary to acute kidney injury and lisinopril. Improved. 5. Metabolic acidosis secondary to acute kidney injury and IV fluids maintained on oral bicarb. Better. Plan: Continue to hold lisinopril. Add Lasix 20 mg orally once daily. Encourage oral intake. Avoid nephrotoxins. Continue to monitor renal function and urine output. Repeat BMP and magnesium level 3-4 days postdischarge. Follow up outpatient in 1-2 weeks.
[2020-12-11] MEDS ORDERED: metroNIDAZOLE 500 MG TAB PO SCH (11:30)
[2020-12-11 11:46] VITALS: BP 138/79; RESP 18; TEMP 97.3
[2020-12-11 11:47] VITALS: PULSE 74
--- NOTE | 2020-12-11 12:28 | P.PN ---
Subjective Progress Note Date: 12/11/20 Principal diagnosis: Incarcerated hernia Patient has been doing fine, no complaint. No fevers or chills. No significant pain. Objective - Vital Signs Vital signs: Vital Signs Temp 97.3 F L 12/11/20 11:00 Pulse 74 12/11/20 11:47 Resp 18 12/11/20 11:00 BP 138/79 12/11/20 11:00 Pulse Ox 95 12/11/20 11:00 Intake & Output 12/10/20 12/11/20 12/11/20 18:59 06:59 18:59 Intake Total 590 Balance 590 Intake: Oral 590 Other: Voiding Method Toilet Toilet Toilet # Voids 1 2 - Exam Constitutional: No acute distress, conversant, pleasant Eyes:Anicteric sclerae, moist conjunctiva, no lid-lag, PERRLA, ENMT: Oropharynx clear, no erythema, exudates Neck: Supple, FROM, no masses, or JVD, No carotid bruits, No thyromegaly Lungs: Clear to auscultation, Clear to percussion, Normal respiratory effort, no accessory muscle use Cardiovascular: Heart regular in rate and rhythm, No murmurs, gallops, or rubs, No peripheral edema Abdominal: Surgical dressings, no guarding, rebound or rigidity, Normoactive bowel sounds, No hepatomegaly, No splenomegaly, No palpable mass Skin: Normal temperature, tone, texture, turgor, no induration, No subcutaneous nodules, No rash, lesions, No ulcers Extremities: No digital cyanosis, No clubbing, Pedal pulses intact and symmetrical, Radial pulses intact and symmetrical, No calf tenderness Psychiatric: Alert and oriented to person, place and time, appropriate affect, intact judgement Neuro: Muscles Strength 5/5 in all 4 extremities, Sensation to light touch grossly present throughout, Cranial nerves II-XII grossly intact, no focal sensory deficits - Labs CBC & Chem 7: 12/11/20 05:11 12/11/20 05:11 Labs: Abnormal Lab Results - Last 24 Hours (Table) 12/11/20 12/11/20 Range/Units 05:11 05:11 MCHC 30.5 L (31.0-37.0) g/dL Chloride 110 H (96-109) mmol/L BUN 49.0 H (9.0-27.0) mg/dL Creatinine 1.9 H (0.6-1.5) mg/dL Est GFR (CKD-EPI)AfAm 34.3 L (60.0-200.0) Est GFR (CKD-EPI)NonAf 29.6 L (60.0-200.0) BUN/Creatinine Ratio 25.79 H (12.00-20.00) Ratio Glucose 118 H (70-110) mg/dL Assessment and Plan Plan: Recurrent lower abdominal incisional incarcerated ventral hernia with large bowel obstruction Pain control per surgery service Continue Levaquin and Flagyl Acute renal failure with hyperkalemia Improved Hold lisinopril Continue Lasix at 20 mg daily Unknown baseline creatinine Follow up creatinine post discharge, follow with nephrology outpatient Sleep apnea Has been using BiPAP during the night here Follow-up with pulmonary Outpatient sleep study COPD on 2L at baseline Continue home inhalers. Incentive spirometry Morbid obesity Structured outpatient weight loss Chronic Asthma, CHF Hx of CVA/TIA, Hypertension, All stable resume meds DVT prophylaxis Lovenox subcu Anticipated discharge: Today Disposition: Likely home
--- NOTE | 2020-12-11 13:30 | P.PN ---
Subjective Progress Note Date: 12/11/20 55-year-old female who we are asked to see for possible sleep apnea syndrome/pickwickian syndrome. The patient apparently underwent a repair of an abdominal incisional incarcerated ventral hernia. It was done by Dr. Briseno. The surgery was done yesterday. Today's postop day #1. The patient is mor bidly obese, and has a history of heart failure, hypertension, and underlying COPD. In addition, the patient likely has sleep apnea syndrome, and/or pickwickian syndrome. Today, the patient is a bit sleepy. She apparently required CPAP on a previous admission. The procedure was a robotically assisted laparoscopic repair of incarcerated ventral hernia with mesh. Currently, the patient is on 2 L of oxygen. Saturations are 95%. We wrote orders for her to be on BiPAP tonight, with an IPAP of 12 and EPAP of 4. She will need outpatient evaluation for possible sleep apnea, and/or pickwickian syndrome. During this hospitalization, narcotics, sedatives, hypnotics, and tranquilizers should be avoided if possible. The patient should be encouraged to deep breathe, cough, and clear secretions, and also use an incentive spirometer, every hour while awake. In addition, we will make sure the patient has Symbicort and albuterol, which is what she takes at home. The patient is seen today 12/10/2020 in follow-up on the regular medical floor. She is status post repair of an abdominal incisional incarcerated ventral hernia. Postoperative day #2. She was having some hypoxemia we are consulted for the same. She was placed on BiPAP last night which she tolerated for just a few hours. 12 over 4 and 35% FiO2. She is currently seen up in a chair at the bedside. She is on room air. O2 saturations in the mid 90s. Awake and alert in no acute distress. White count 11.3. Hemoglobin 11.8. Sodium 139. Potassium 4.8. Creatinine 1.9. Troponin negative. ProBNP 290. She remains on Symbicort, DuoNeb inhalations, Lovenox, Flagyl. 12/11/2020, the patient is doing well. She had an abdominal incisional incarcerated ventral hernia that was repaired robotically. She is postop day #3 . She is resting comfortably in bed. No nausea. No vomiting. No abdominal pain. She has a BiPAP at the bedside. Most of the time she is sleeping without the BiPAP. The current setting is 4 over 4 cm of water with an FiO2 of 35%. She is mainly wearing oxygen at 8 L per minute nasal cannula. IV fluids to KVO. She has a very large abdominal apron extending to her thighs bilaterally. Trace edema in lower extremities. Objective - Vital Signs Vital signs: Vital Signs Temp 97.3 F L 12/11/20 11:00 Pulse 74 12/11/20 11:47 Resp 18 12/11/20 11:00 BP 138/79 12/11/20 11:00 Pulse Ox 95 12/11/20 11:00 Intake & Output 12/10/20 12/11/20 12/11/20 18:59 06:59 18:59 Intake Total 590 Balance 590 Intake: Oral 590 Other: Voiding Method Toilet Toilet Toilet # Voids 1 2 - Exam - Exam GENERAL EXAM: Alert, pleasant, morbidly obese 55-year-old female patient, on room air, comfortable in no apparent distress. HEAD: Normocephalic. EYES: Normal reaction of pupils, equal size. NOSE: Clear with pink turbinates. THROAT: No erythema or exudates. NECK: No masses, no JVD. CHEST: No chest wall deformity. LUNGS: Equal air entry with no crackles, wheeze, rhonchi or dullness. CVS: S1 and S2 normal with no audible murmur, regular rhythm. ABDOMEN: Puncture sites clean and dry well approximated. Morbidly obese unable to appreciate for hepatosplenomegaly, normal bowel sounds, no guarding or rigidity. SPINE: No scoliosis or deformity SKIN: No rashes CENTRAL NERVOUS SYSTEM: No focal deficits, tone is normal in all 4 extremities. EXTREMITIES: There is no peripheral edema. No clubbing, no cyanosis. Peripheral pulses are intact. - Labs CBC & Chem 7: 12/11/20 05:11 12/11/20 05:11 Labs: Abnormal Lab Results - Last 24 Hours (Table) 12/11/20 12/11/20 Range/Units 05:11 05:11 MCHC 30.5 L (31.0-37.0) g/dL Chloride 110 H (96-109) mmol/L BUN 49.0 H (9.0-27.0) mg/dL Creatinine 1.9 H (0.6-1.5) mg/dL Est GFR (CKD-EPI)AfAm 34.3 L (60.0-200.0) Est GFR (CKD-EPI)NonAf 29.6 L (60.0-200.0) BUN/Creatinine Ratio 25.79 H (12.00-20.00) Ratio Glucose 118 H (70-110) mg/dL Assessment and Plan Plan: 1 Postop day #3, status post robotically assisted repair of incarcerated ventral hernia. 2 Morbid obesity. BMI 70 3 Suspect obstructive sleep apnea syndrome and/or pickwickian syndrome (obesity/hypoventilation syndrome) 4 History of chronic bronchial asthma. 5 History of heart failure. 6 History of CVA. 7 History of essential hypertension. 8 History of myocardial infarction. 9 Chronic hypoxemic respiratory failure. 10 Lifelong nontobacco user. 11 chronic kidney disease, creatinine stable for now. Plan: Presently stable from the pulmonary standpoint Encourage cough and deep breathing exercises Encourage the use of incentive spirometer Continue BiPAP at night as tolerated Outpatient evaluation for suspected obstructive sleep apnea Home once cleared surgically
--- NOTE | 2020-12-11 14:22 | P.DS ---
<Sue Plunkett - Last Filed: 12/11/20 14:20> Providers Expected date of discharge: 12/11/20 Hospital Course: Discharge diagnosis 1. Large recurrent incarcerated incisional hernia with bowel obstruction status post repair of large recurrent incarcerated incisional hernia 12/08/2020 2. Grade 5 panniculus 3. Renal insufficiency, stage 3, present on admission 4. Severe hypopnea with obstructive sleep apnea 5. Super morbid obesity, BMI 70+ 6. Hyperkalemia 7. Leukocytosis, now resolved Hospital course This is a 55-year-old female who presented with swelling along the epigastrium. Findings were consistent with incisional hernia. Patient is status post repair of a large recurrent incarcerated incisional hernia on 12/08/2020. Patient's pain is controlled. She is tolerating diet. She is having bowel movements. She is afebrile. She is ambulating. Patient is stable for discharge. Physician Power Press Operator note has been reviewed by physician. Signing provider agrees with the documented findings, assessment, and plan of care. Patient Condition at Discharge: Stable Plan - Discharge Summary Discharge Rx Participant: No New Discharge Prescriptions: New Furosemide [Lasix] 20 mg PO DAILY 30 Days #30 tab Cyclobenzaprine [Flexeril] 10 mg PO TID PRN #9 tab PRN Reason: Pain Gabapentin [Neurontin] 300 mg PO TID PRN #9 cap PRN Reason: Pain Acetaminophen Tab [Tylenol] 1,000 mg PO Q6HR PRN #20 tab PRN Reason: Pain Continue Budesonide/Formoterol Fumarate [Symbicort 160-4.5 Mcg Inhaler] 2 puff INHALATION BID Cyanocobalamin [Vitamin B-12] 500 mcg PO DAILY Megestrol [Megace] 80 mg PO BID Ferrous Sulfate [Iron (65 MG Elemental)] 325 mg PO DAILY Diltiazem HCl [Cartia Xt] 300 mg PO QAM Aspirin 325 mg PO DAILY Albuterol Sulfate [Albuterol Sulfate Hfa] 1 - 2 puff INHALATION QID PRN PRN Reason: sob Discontinued Furosemide [Lasix] 40 mg PO QAM lisinopriL [Zestril] 40 mg PO QAM Discharge Medication List Albuterol Sulfate [Albuterol Sulfate Hfa] 1 - 2 puff INHALATION QID PRN 12/05/20 [History] Aspirin 325 mg PO DAILY 12/05/20 [History] Budesonide/Formoterol Fumarate [Symbicort 160-4.5 Mcg Inhaler] 2 puff INHALATION BID 12/05/20 [History] Cyanocobalamin [Vitamin B-12] 500 mcg PO DAILY 12/05/20 [History] Diltiazem HCl [Cartia Xt] 300 mg PO QAM 12/05/20 [History] Ferrous Sulfate [Iron (65 MG Elemental)] 325 mg PO DAILY 12/05/20 [History] Megestrol [Megace] 80 mg PO BID 12/05/20 [History] Acetaminophen Tab [Tylenol] 1,000 mg PO Q6HR PRN #20 tab 12/11/20 [Rx] Cyclobenzaprine [Flexeril] 10 mg PO TID PRN #9 tab 12/11/20 [Rx] Furosemide [Lasix] 20 mg PO DAILY 30 Days #30 tab 12/11/20 [Rx] Gabapentin [Neurontin] 300 mg PO TID PRN #9 cap 12/11/20 [Rx] Follow up Appointment(s)/Referral(s): Pauline Arroyo NPC [Nurse Practitioner] - 01/10/21 3:15 pm Emiliana Briseno MD [STAFF PHYSICIAN] - 12/19/20 3:30 pm Philip Ceballos DO [STAFF PHYSICIAN] - 12/14/20 11:40 am (TELE-HEALTH APPOINTMENT. ) Milton Hernandez MD [STAFF PHYSICIAN] - 02/01/21 10:00 am (SLEEP CONSULT) Patient Instructions/Handouts: Ventral Hernia Repair (DC) Activity/Diet/Wound Care/Special Instructions: BMP/MAGNESIUM lab work to be one 12/14/20. Wear abdominal binder at all times for comfort. No lifting over 4 pounds for 4 weeks until Jan 05. March shower. No bath tub soaks for two weeks until Dec 22 Discharge Disposition: HOME SELF-CARE <Emiliana Briseno - Last Filed: 12/11/20 19:20> Providers Date of admission: 12/09/20 13:44 Attending physician: Emiliana Briseno Consults: 12/08/20 15:13 Consult Physician Routine Consulting Provider: James,Giselle A Consult Reason/Comments: Medical management Do you want consulting provider notified?: Yes 12/08/20 15:14 Consult Physician Routine Consulting Provider: Karmen Flores Consult Reason/Comments: Acute on chronic renal insufficiency Do you want consulting provider notified?: Yes 12/08/20 15:15 Consult Physician Routine Consulting Provider: Hari Gomez Consult Reason/Comments: Severe obstructive sleep apnea Do you want consulting provider notified?: Yes Primary care physician: Audrey Rosales - Discharge Diagnosis(es) (1) Stage III chronic kidney disease Status: Acute (2) Obstructive sleep apnea hypopnea, moderate Status: Acute (3) Abdominal adhesions Status: Acute (4) Morbid obesity with BMI of 70 and over, adult Status: Acute (5) Recurrent incisional hernia with incarceration Status: Acute (6) Hyperkalemia Status: Acute (7) Pickwickian syndrome Status: Acute Hospital Course: POSTOPERATIVE DIAGNOSES: 1. Recurrent lower abdominal incisional incarcerated ventral hernia with large bowel obstruction, 10 x 15 cm 2. Super morbid obesity due to excess calories, BMI 70 3. Pre-existing history of myocardial infarction 4. Congestive heart failure 5. Hypertensive heart disease 6. Panniculitis 7. Chronic obstructive pulmonary disease 8. Iron deficiency anemia 9. History of transient ischemic attack 10. Peritoneal adhesions greater omentum to abdominal wall 11. Acute on chronic hypertensive kidney disease, stage III 12. Obstructive sleep apnea 13. Leukocytosis COURSE: The patient is a 55-year-old female who presents with super morbid obesity BMI over 70 including multiple recurrent lower abdominal hernias as well as panniculitis. Patient is deemed high risk due to BMI over 70, pre-existing cardiac disease, prior history of stroke, and moderate panniculus over 40 pounds. She presented with acute kidney disease with hyperkalemia and leukocy tosis on presentation. She had an incarcerated incisional hernia involving the lower abdomen. Her hernias incorporated the small and large bowel of her large pannus including previous Pfannenstiel incision. With her findings of large and small bowel obstruction with reduction and repair during surgery, she was also kept for further management. Nephrology and medicine were consulted for her hyperkalemia and kidney injury. Pulmonary was consulted for untreated obstructive sleep apnea. Prior to discharge, medical reconciliation and adjustment of her hypertensive medications were performed by nephrology. She was deemed stable for discharge from multiple consultants. Prior to discharge, her pain was controlled and she was tolerating diet. Referral to the bariatric center was also provided including bariatric abdominal binder. Procedures: OPERATION: 1. Robotic-assisted da Rudy Xi laparoscopic repair of initial incarcerated epigastric ventral hernia with mesh, ventralight ST mesh 15.2 cm circular mesh 2. Robotic-assisted da Rudy Xi laparoscopic lysis of adhesions over 1 hour Anesthesia: GETA, regional, local Estimated Blood Loss (ml): 5 Pathology: None COMPLICATIONS: None. Operative Findings: 1. Lower midline incisional hernia incarcerated greater omentum swish cheese defect 10 x 15 cm 2. Recurrent Pfannenstiel incisional hernia with large bowel obstruction incorporating sigmoid colon, 10 x 15 cm 3. Bilateral inguinal hernias fat containing. 4. Extensive greater omental adhesions with incarceration requiring over 1 hour dissection and lysis of 5. Fascia repaired using #1 V-lock suture prior to mesh placement
== END 2020-12-11 15:58 | disposition home or self-care (01) | DRG 336 ==
LOC: OR 07:20 → 6NMEDSUR 16:36 → OR 12-09 02:11 → 6NMEDSUR 12-09 02:11 → OBSVTOIN 12-09 13:44
PROVIDERS: ADMIT Surgery Plastic and Reconstructive Surgery; ATTEND Surgery Plastic and Reconstructive Surgery
PROC: 0DNU4ZZ Release Omentum, Percutaneous Endoscopic Approach (ICD-10-PCS; principal; 2020-12-08 09:40)
PROC: 0WUF4JZ Supplement Abdominal Wall with Synthetic Substitute, Percutaneous Endoscopic Approach (ICD-10-PCS; principal; 2020-12-08 09:40)
PROC: 8E0W4CZ Robotic Assisted Procedure of Trunk Region, Percutaneous Endoscopic Approach (ICD-10-PCS; principal; 2020-12-08 09:40)
PROC: 0YQA4ZZ Repair Bilateral Inguinal Region, Percutaneous Endoscopic Approach (ICD-10-PCS; principal; 2020-12-08 09:40)
PROC: 0DNN4ZZ Release Sigmoid Colon, Percutaneous Endoscopic Approach (ICD-10-PCS; principal; 2020-12-08 09:40)
PROC: 5A09457 Assistance with Respiratory Ventilation, 24-96 Consecutive Hours, Continuous Positive Airway Pressure (ICD-10-PCS; 2020-12-09)
DX: K43.0 Incisional hernia with obstruction, without gangrene (principal); E66.2 Morbid (severe) obesity with alveolar hypoventilation; J96.11 Chronic respiratory failure with hypoxia; N17.9 Acute kidney failure, unspecified; I13.0 Hypertensive heart and chronic kidney disease with heart failure and stage 1 through stage 4 chronic kidney disease, or unspecified chronic kidney disease; I50.32 Chronic diastolic (congestive) heart failure; E87.2 Acidosis; Z68.45 Body mass index [BMI] 70 or greater, adult; D63.1 Anemia in chronic kidney disease; Z99.81 Dependence on supplemental oxygen; N18.30 Chronic kidney disease, stage 3 unspecified; J44.9 Chronic obstructive pulmonary disease, unspecified; I25.10 Atherosclerotic heart disease of native coronary artery without angina pectoris; E87.5 Hyperkalemia; D72.829 Elevated white blood cell count, unspecified; K66.0 Peritoneal adhesions (postprocedural) (postinfection); M79.3 Panniculitis, unspecified; K40.20 Bilateral inguinal hernia, without obstruction or gangrene, not specified as recurrent; T50.1X5A Adverse effect of loop [high-ceiling] diuretics, initial encounter; I25.2 Old myocardial infarction; Z71.3 Dietary counseling and surveillance; Z79.82 Long term (current) use of aspirin; Z79.51 Long term (current) use of inhaled steroids; Z79.899 Other long term (current) drug therapy; Z90.49 Acquired absence of other specified parts of digestive tract; Z86.73 Personal history of transient ischemic attack (TIA), and cerebral infarction without residual deficits; Z98.891 History of uterine scar from previous surgery; Z88.0 Allergy status to penicillin; Z88.1 Allergy status to other antibiotic agents; Z91.040 Latex allergy status
CPT/HCPCS: 36600; 64486; 76770; 80048; 80053; 81001; 81025; 82805; 83735; 83880; 84132; 84484; 85025; 94640; 94660

== ENCOUNTER → 2021-01-24 | Outpatient (CLI) | payer OTHER ==
[2021-01-24 15:24] VITALS: BP 102/64; PULSE 80; RESP 20; TEMP 98; BMI 70.9
--- NOTE | 2021-01-24 15:37 | P.HPBAR ---
Bariatric H&P - History & Physicial H&P Date: 01/24/21 History & Physicial: Visit/CC: initial visit Patient initial contact: Initial weight: Initial weight in pounds: Height: 5 ft 2.5 in Initial BMI: Last weight: Current weight: 178.715 kg Current weight in pounds: 394.00 Current BMI: 70.9 Pratt body weight (based on NIH guidelines): 51.029 kg Excess body weight loss: The patient is a 55 year-old F who presents for Bariatric Assessment. She comes in with trial of weigh loss. Highest weight is present. Plan for weight loss. Needs follow up with EGD. Her daughter had the sleeve. Her is with her. She needs abdominal wall reconstruction. Past Medical History Past Medical History: Asthma, Heart Failure, COPD, CVA/TIA, Hypertension, Memory Impairment, Myocardial Infarction ([place]) Additional Past Medical History / Comment(s): incisional hernia, hx CVA 2017 and CVA June 22, 2020-generalized weakness and memory impairment, heart murmur,uses oxygen 2 Liters NC,was having heavy menses Jun 2020 Last Myocardial Infarction Date:: 2009 History of Any Multi-Drug Resistant Organisms: None Reported Past Surgical History: Section, Cholecystectomy, Heart Catheterization Additional Past Surgical History / Comment(s): c sections x 3 Past Anesthesia/Blood Transfusion Reactions: No Reported Reaction Additional Past Anesthesia/Blood Transfusion Reaction / Comm: no problems with prior blood transfusions Past Psychological History: No Psychological Hx Reported Smoking Status: Never smoker Past Alcohol Use History: None Reported Past Drug Use History: None Reported - Past Family History Mother Family Medical History: No Reported History Surgical - Exam Vital Signs Temp Pulse Resp BP 98 F 80 20 102/64 01/24/21 15:16 01/24/21 15:16 01/24/21 15:16 01/24/21 15:16 Bariatric Checklist Checklist: Plan: Checklist: EGD: 1. Hiatal hernia: 2. H. Pylori: HgbA1c: Vitamin D: Smoking: Primary care physician referral: Dr. Audrey Rosales Psychiatry clearance: Cardiology clearance: Sleep study: Diet journal: VTE risk score: VTE risk level: Rehab needs at discharge:
== END ==
LOC: BARWHC3 14:32
PROVIDERS: ATTEND Surgery Plastic and Reconstructive Surgery
DX: E66.01 Morbid (severe) obesity due to excess calories (principal); Z68.45 Body mass index [BMI] 70 or greater, adult; I50.9 Heart failure, unspecified; J44.9 Chronic obstructive pulmonary disease, unspecified; I10 Essential (primary) hypertension; I25.2 Old myocardial infarction; I63.9 Cerebral infarction, unspecified
CPT/HCPCS: 99211

== ENCOUNTER → 2022-01-03 | Outpatient (CLI) | payer OTHER ==
[2022-01-04 12:38] LABS: Coronavirus SARS CoV-2 Not Detected (Not Detected)
== END | disposition home or self-care (01) ==
LOC: LABPAT 09:47
PROVIDERS: ATTEND Surgery Plastic and Reconstructive Surgery
DX: Z01.812 Encounter for preprocedural laboratory examination (principal); Z20.822 Contact with and (suspected) exposure to COVID-19
CPT/HCPCS: U0003; C9803; U0005

== ENCOUNTER 2022-01-07 07:10 | Day surgery (SDC) | payer OTHER ==
[2022-01-03 15:00] VITALS: BMI 68.0
[~2022-01-07 07:10] MED LIST changes: -CLINDAMYCIN 900 MG in DEXTROSE 5% IN WATER 50 ML IVPB PRN; -HEPARIN SODIUM,PORCINE 5,000 UNIT/ML 1 ML VIAL SQ PRN; +LACTATED RINGERS 1,000 ML IV SCH
--- NOTE | 2022-01-07 07:36 | P.GSHP ---
History of Present Illness H&P Date: 01/07/22 CHIEF COMPLAINT: GERD HISTORY OF PRESENT ILLNESS: The patient is a 56-year-old female who presents reports gastroesophageal reflux disease. Upper endoscopy was offered for further evaluation and management. PAST MEDICAL HISTORY: Please see list. PAST SURGICAL HISTORY: Please see list. MEDICATIONS: Please see list. ALLERGIES: Please see list. SOCIAL HISTORY: No illicit drug use FAMILY HISTORY: No reports of Crohn disease or ulcerative colitis. REVIEW OF ORGAN SYSTEMS: CONSTITUTIONAL: No reports of fevers or chills. GI: Denies any blood in stools or constipation. PHYSICAL EXAM: VITAL SIGNS: Stable GENERAL: Well-developed and pleasant in no acute distress. HEENT: No scleral icterus. Extraocular movements grossly intact. Moist buccal mucosa. NECK: Supple without lymphadenopathy. CHEST: Unlabored respirations. Equal bilateral excursions. CARDIOVASCULAR: Regular rate and rhythm. Distal 2+ pulses. ABDOMEN: Soft, nondistended. MUSCULOSKELETAL: No clubbing, cyanosis, or edema. ASSESSMENT: 1. Gastroesophageal reflux disease PLAN: 1. Recommend proceeding with an upper endoscopy Past Medical History Past Medical History: Asthma, Heart Failure, COPD, CVA/TIA, Hypertension, Memory Impairment, Myocardial Infarction ([place]) Additional Past Medical History / Comment(s): hx CVA 2017 and CVA June 22, 2020- generalized weakness and memory impairment, heart murmur, uses oxygen 2 Liters NC Last Myocardial Infarction Date:: 2009 History of Any Multi-Drug Resistant Organisms: None Reported Past Surgical History: Section, Cholecystectomy, Heart Catheterization, Hernia Repair Additional Past Surgical History / Comment(s): c sections x 3 Past Anesthesia/Blood Transfusion Reactions: No Reported Reaction Additional Past Anesthesia/Blood Transfusion Reaction / Comment(s): no problems with prior blood transfusions Past Psychological History: No Psychological Hx Reported Smoking Status: Never smoker Past Alcohol Use History: None Reported Past Drug Use History: None Reported - Past Family History Mother Family Medical History: Coronary Artery Disease (CAD), Hypertension Father Family Medical History: Coronary Artery Disease (CAD), Hypertension Medications and Allergies Home Medications Medication Instructions Recorded Confirmed Type Albuterol Sulfate [Albuterol 1 - 2 puff INHALATION QID PRN 12/05/20 01/03/22 History Sulfate Hfa] Aspirin 81 mg PO DAILY 12/05/20 01/03/22 History Budesonide/Formoterol Fumarate 2 puff INHALATION BID 12/05/20 01/03/22 History [Symbicort 160-4.5 Mcg Inhaler] Cyanocobalamin [Vitamin B-12] 1,000 mcg PO DAILY 12/05/20 01/03/22 History Ferrous Sulfate [Iron (65 MG 65 mg PO DAILY 12/05/20 01/03/22 History Elemental)] Lisinopril [Prinivil] 10 mg PO DAILY 01/24/21 01/03/22 History Allopurinol [Zyloprim] 100 mg PO DAILY 01/03/22 01/03/22 History Diltiazem HCl [Diltiazem HCl 24Hr 300 mg PO DAILY 01/03/22 01/03/22 History ER (LA)] Furosemide [Lasix] 20 mg PO DAILY 01/03/22 01/03/22 History Allergies Allergy/AdvReac Type Severity Reaction Status Date / Time cephalexin [From Keflex] Allergy Rash/Hives Verified 01/03/22 14:48 latex Allergy lip and Verified 01/24/21 16:11 tongue swelling Penicillins Allergy Rash/Hives Verified 01/03/22 14:48
[2022-01-07 07:38] VITALS: TEMP 96.6
[2022-01-07] MEDS ORDERED: LIDOCAINE 1% (10MG/ML) FOR IV START INTRADERMA ONE (07:48)
[2022-01-07] MEDS ORDERED: LIDOCAINE 1% INJ 10MG/ML (20 ML MDV) ONE (08:00)
[2022-01-07] MEDS ORDERED: KETAMINE 10 MG/ML 20 ML VIAL ONE (08:00)
[2022-01-07] MEDS ORDERED: PROPOFOL 10 MG/ML 20 ML VIAL IV ONE (08:00)
--- NOTE | 2022-01-07 08:34 | P.PCN ---
Date of Procedure: 01/07/22 Description of Procedure: PREOPERATIVE DIAGNOSIS: Gastroesophageal reflux disease. Morbid obesity. POSTOPERATIVE DIAGNOSIS: Gastritis. Gastroesophageal reflux disease. Gastric ulcers without bleeding OPERATION: Esophagogastroduodenoscopy with biopsies along antrum. SURGEON: Emiliana Briseno MD ANESTHESIA: MAC. INDICATIONS: The patient is a 56-year-old female who presents with a history of reflux disease. Benefits and risks of the procedure were described. Informed consent was obtained. DESCRIPTION: The patient was brought into the endoscopy suite and laid in the left lateral decubitus position. An Olympus gastroscope was passed along the posterior oropharynx down to the distal esophagus where the squamocolumnar junction was encountered at 42 cm from the incisors. The stomach was entered and bile reflux was found. Additional findings are listed below. Biopsies with cold forceps were obtained of the antrum. The first through third portion of the duodenum was examined and unremarkable. Retroflexion of the scope confirmed Hill grade 2 lower esophageal valve. The squamocolumnar junction demonstrated LA grade B erosive esophagitis. The stomach was desufflated. The patient tolerated the procedure well. FINDINGS: Squamocolumnar junction 42 cm from the incisors. Diaphragmatic hiatus at 42 cm. Hill grade 2 lower esophageal valve. LA grade B erosive esophagitis. No active duodenitis. Chronic gastritis with superficial gastric ulcers, punctate and antrum with biopsies obtained RECOMMENDATIONS: Upper endoscopy as needed. Omeprazole 40 mg daily for 2 weeks Plan - Discharge Summary Discharge Rx Participant: No New Discharge Prescriptions: New Omeprazole [PriLOSEC] 40 mg PO DAILY #14 cap Continue Budesonide/Formoterol Fumarate [Symbicort 160-4.5 Mcg Inhaler] 2 puff INHALATION BID Cyanocobalamin [Vitamin B-12] 1,000 mcg PO DAILY Ferrous Sulfate [Iron (65 MG Elemental)] 65 mg PO DAILY Aspirin 81 mg PO DAILY Albuterol Sulfate [Albuterol Sulfate Hfa] 1 - 2 puff INHALATION QID PRN PRN Reason: sob Lisinopril [Prinivil] 10 mg PO DAILY Allopurinol [Zyloprim] 100 mg PO DAILY Furosemide [Lasix] 20 mg PO DAILY Diltiazem HCl [Diltiazem HCl 24Hr ER (LA)] 300 mg PO DAILY Discharge Medication List Albuterol Sulfate [Albuterol Sulfate Hfa] 1 - 2 puff INHALATION QID PRN 01/12/21 [History] Aspirin 81 mg PO DAILY 12/05/20 [History] Budesonide/Formoterol Fumarate [Symbicort 160-4.5 Mcg Inhaler] 2 puff INHALATION BID 12/05/20 [History] Cyanocobalamin [Vitamin B-12] 1,000 mcg PO DAILY 12/05/20 [History] Ferrous Sulfate [Iron (65 MG Elemental)] 65 mg PO DAILY 12/05/20 [History] Lisinopril [Prinivil] 10 mg PO DAILY 01/24/21 [History] Allopurinol [Zyloprim] 100 mg PO DAILY 01/03/22 [History] Diltiazem HCl [Diltiazem HCl 24Hr ER (LA)] 300 mg PO DAILY 01/03/22 [History] Furosemide [Lasix] 20 mg PO DAILY 01/03/22 [History] Omeprazole [PriLOSEC] 40 mg PO DAILY #14 cap 01/07/22 [Rx] Follow up [facility]ment(s[facility]22 Patient Instructions/Handouts: *Surgery [facility] - (Anesthesia) Endoscopy Discharge Instructions, Peptic Ulcer (DC), Gastritis (ED), Diet for Stomach Ulcers and Gastritis (ED) Discharge Disposition: HOME SELF-CARE
[2022-01-07 08:48] VITALS: BP 110/64; PULSE 67; RESP 16
== END 2022-01-07 09:15 | disposition home or self-care (01) ==
LOC: ORWHC2ENDO 07:10
PROVIDERS: ATTEND Surgery Plastic and Reconstructive Surgery
DX: K21.9 Gastro-esophageal reflux disease without esophagitis (principal); K29.70 Gastritis, unspecified, without bleeding; K25.9 Gastric ulcer, unspecified as acute or chronic, without hemorrhage or perforation
CPT/HCPCS: 43239; 88305; J2001; J2704

== ENCOUNTER → 2022-01-23 | Outpatient (CLI) | payer OTHER ==
[2022-01-23 13:49] VITALS: BP 121/76; PULSE 80; RESP 16; TEMP 98; BMI 65.4
--- NOTE | 2022-01-23 14:31 | P.BASOAP ---
Subjective Progress Note Date: 01/23/22 DATE OF SERVICE: 01/23/2022 CHIEF COMPLAINT: Morbid obesty HISTORY OF PRESENT ILLNESS: Mildred Nunes is a 56-year-old female who comes with lifelong morbid obesity. She has tried multiple times for weight loss without success. Her highest weight is present at 393 pounds. She has been undergoing medical supervised weight loss and lost 30 pounds in 1 year. She was recently hospitalize for bowel obstruction and panniculitis at her local hospital in the last 6 months. She has longstanding history of moderate-sized pannus that extends below her knees. She reports difficulty in waking with chronic edema and panniculitis of her pannus. She is looking into the sleeve gastrectomy. At height of 5 feet 2.5 inches, her ideal body weight is 135 pounds. Her highest weight is present, 393 pounds with BMI 70.9. She comes in 363 pounds from 393 pounds, 1 year ago. She has lost 30 pounds in 1 year. She is 228 pounds overweight. PAST MEDICAL HISTORY: 1. Morbid obesity due to excess calories 2. Body mass index of 70.9, initial 3. Hypertensive heart disease 4. Congestive heart failure 5. Asthma 6. Chronic obstructive pulmonary disease 7. Cerebrovascular attack 8. Transient ischemic attack 9. Myocardial infarction PAST SURGICAL HISTORY: 1. Incisional hernia x 3 2. section x 3 3. Cholecystectomy 4. Heart catheterization HOME MEDICATIONS: Home Medications Medication Instructions Recorded Confirmed Aspirin 81 mg PO DAILY 12/05/20 01/24/22 Cyanocobalamin [Vitamin B-12] 1,000 mcg PO DAILY 12/05/20 01/24/22 Ferrous Sulfate [Iron (65 MG 65 mg PO DAILY 12/05/20 01/24/22 Elemental)] Lisinopril [Prinivil] 10 mg PO DAILY 01/24/21 01/24/22 Allopurinol [Zyloprim] 100 mg PO DAILY 01/03/22 01/24/22 Diltiazem HCl [Diltiazem HCl 24Hr 300 mg PO DAILY 01/03/22 01/24/22 ER ([place])] Furosemide [Lasix] 20 mg PO DAILY 01/03/22 01/24/22 Calcium Citrate 1,200 mg PO DAILY 01/25/22 01/25/22 Ergocalciferol [Vitamin D2 (1250 50,000 unit PO WEEKLY 01/25/22 01/25/22 Mcg = 42842 Iu)] Zinc 50 mg PO DAILY 01/25/22 01/25/22 Previous Rx's Medication Instructions Recorded Omeprazole [PriLOSEC] 40 mg PO DAILY #14 cap 01/07/22 ALLERGIES: Allergies Allergy/AdvReac Type Severity Reaction Status Date / Time cephalexin [From Keflex] Allergy Rash/Hives Verified 01/03/22 14:48 latex Allergy lip and Verified 01/24/21 16:11 tongue swelling Penicillins Allergy Rash/Hives Verified 01/03/22 14:48 SOCIAL HISTORY: No past tobacco use. FAMILY HISTORY: No family history of ulcerative colitis disease or Crohn's dise ase. Family history of morbid obesity. No lupus in the family. No reports of stomach or esophageal cancer. REVIEW OF ORGAN SYSTEMS: CONSTITUTIONAL: At height of 5 feet 2.5 inches, her ideal body weight is 135 pounds. Her highest weight is present, 393 pounds with BMI 70.9. She is 258 pounds overweight. HEENT: Denies any active troubles with vision or hearing. ENDOCRINE: Denies diabetes. No hypothyroidism. CARDIOVASCULAR: Past reports of palpitations or heart attacks or chest pain. H as hypertensive heart disease. Has heart failure. Past myocardial infarction. Has heart murmur. RESPIRATORY: Has daytime somnolence. Has asthma. Has chronic obstructive pulmonary disease. GASTROINTESTINAL: Denies any bright red blood per rectum. No diarrhea. No constipation. Has gastroesophageal reflux disease. GENITOURINARY: Has bladder urgency. No recent blood in urine MUSCULOSKELETAL: Has lower back pain and joint pain. Has osteoarthritis of the knees. History of bilateral lower extremity edema. NEURO: No headaches. No seizure disorders. Has neuropathy. Prior stroke with CVA. Has memory impairment. PSYCH: Denies depression. No suicidal ideation. RHEUMATOLOGIC: No lupus. No rheumatoid arthritis. HEMATOLOGIC: Denies any abnormal bleeding or bruising. SKIN: Chronic panniculitis. No skin cancer. PHYSICAL EXAM: VITAL SIGNS: Height 5 foot 2.5 inches, weight 363 pounds. BMI 65.5 Vital Signs Temp 98 F 01/23/22 13:46 Pulse 80 01/23/22 13:46 Resp 16 01/23/22 13:46 BP 121/76 01/23/22 13:46 Pulse Ox GENERAL: Well-developed in no acute distress. HEENT: No scleral icterus. Extraocular movements grossly intact. Hears conversational speech. No nasal drainage. NECK: Supple without lymphadenopathy. CHEST: Nonlabored respirations with equal bilateral excursions. CARDIOVASCULAR: Regular rate and regular rhythm. Distal 2+ pulses. ABDOMEN: Obese, soft, nontender, nondistended. Pannus over 40 pounds, grade 5. MUSCULOSKELETAL: No clubbing, cyanosis. NEURO: No focal or lateralizing signs. Cranial nerves 2 through 12 grossly within normal limits. PSYCH: Appropriate affect. Alert and oriented to person, place and time. SKIN: Good skin turgor. Well perfused. EGD FINDINGS: Squamocolumnar junction 42 cm from the incisors. Diaphragmatic hiatus at 42 cm. Hill grade 2 lower esophageal valve. LA grade B erosive esophagitis. No active duodenitis. Chronic gastritis with superficial gastric ulcers, punctate and antrum with biopsies obtained Final Pathologic Diagnosis GASTRIC ANTRUM, BIOPSY: Mild chronic gastritis. Helicobacter pylori organisms are not identified on routine H+E sections. ASSESSMENT: 1. Morbid obesity due to excess calories 2. Body mass index of 70.9, initial to 65.5 3. Hypertensive heart disease 4. Congestive heart failure 5. Asthma 6. Chronic obstructive pulmonary disease 7. Cerebrovascular attack 8. Transient ischemic attack 9. Myocardial infarction 10. Renal insufficiency due to hypertenisve heart disease, Stage 3 11. Panniculitis 12. Gastric ulcers 13. History of gastric ulcers PLAN: 1. Bariatric options between a sleeve, band and a Jair-en-Y gastric bypass were reviewed in detail. The patient elected for a sleeve gastrectomy. Robotic assisted approach described. 2. The [place] [facility] Data was also reviewed with benefits and risks as described. 3. An 8 page second-generation bariatric consent form was reviewed in detail including potential of bleeding, infection, leaks, adequate weight loss, nutritional deficiencies which the patient demonstrated understanding of the risks. 4. A 2 week high-protein low caloric 800 kcal diet described to address hepat omegaly. 5. Preoperative labs including complete metabolic panel and CBC with type and screen recommended. 6. DVT prophylaxis per [place] [facility]. 7. Antibiotic prophylaxis. 8. Inpatient hospitalization anticipated for more than 2 nights. 9. All questions and concerns were addressed with the patient. 10. She is at elevated risk with history of myocardial infarction, bowel obstructions 11. Overall, patient has expressed understanding of bariatric care including postoperative diet and commitment of lifestyle. Patient should benefit from surgical intervention for correction of her morbid obesity. 12. Recommend bariatric labs follow up as she is 1 year out. 13. Updated cardiac risk assessment advised. 14. Completion/updated psych assessment for over 1 year. Objective - Vital Signs Vital signs: Vital Signs Temp 98 F 01/23/22 13:46 Pulse 80 01/23/22 13:46 Resp 16 01/23/22 13:46 BP 121/76 01/23/22 13:46 Pulse Ox Intake & Output 01/22/22 01/23/22 01/23/22 18:59 06:59 18:59 Weight 165.108 kg - Labs CBC & Chem 7: 01/23/22 15:20 01/23/22 15:20 Assessment/Plan Plan: Date: 01/23/22 Initial Weight: 178.715 kg Initial BMI: 70.9 Current Weight: 165.108 kg Current BMI: 65.4 Type of Surgery: Total Volume in Band: Previous Volume: Volume Removed: Volume Added: Band Size:
[2022-01-23 16:15] LABS: Partial Thromboplastin Time 24.9 sec (22.0-30.0); Prothrombin Time 10.8 sec (9.0-12.0)
[2022-01-23 23:24] LABS: HCT 48.2 % (37.2-46.3); HGB 14.8 g/dL (12.0-15.0); MCH 29.4 pg (27.0-32.0); MCHC 30.7 g/dL (32.0-37.0); MCV 95.6 fL (80.0-97.0); Mean Platelet Volume 11.3 fL (9.5-12.2); NRBC Per 100 WBC 0 /100 WBCS (0.0-0.0); Platelet Count 264 X 10*3/uL (140-440); RBC 5.04 X 10*6/uL (4.10-5.20); RDW 13.8 % (11.5-14.5); WBC 8.69 X 10*3/uL (4.50-10.00)
[2022-01-24 02:34] LABS: LDL Cholesterol,Calculated 86.7 mg/dL (0.0-131.0); Prealbumin 22.4 mg/dL (18.0-42.0)
[2022-01-24 04:57] LABS: % Iron Saturation 18.24 (12.00-45.00); Iron 57 ug/dL (50-170); Magnesium 2.7 mg/dL (1.5-2.4); Phosphorus 4.2 mg/dL (2.4-5.1); Total Iron Binding Capacity 311 ug/dL (228-460)
[2022-01-24 13:10] LABS: Zinc, Serum 59 ug/dL (60-130)
[2022-01-24 16:31] LABS: ALT 25 U/L (8-44); AST 22 U/L (13-35); African American GFR (CKD) 44.9 (60.0-200.0); Albumin 4.3 g/dL (3.8-4.9); Albumin/Globulin Ratio 1.54 (1.60-3.17); Alkaline Phosphatase 83 U/L (41-126); BUN/Creat Ratio 12.12 Ratio (12.00-20.00); Blood Urea Nitrogen 18.3 mg/dL (9.0-27.0); Calcium 10.9 mg/dL (8.7-10.3); Carbon Dioxide 17.1 mmol/L (20.0-27.5); Chloride 109 mmol/L (96-109); Globulin 2.8 g/dL (1.6-3.3); Glucose 120 mg/dL (70-110); Non-African American GFR(CKD) 38.8 (60.0-200.0); Potassium 5.3 mmol/L (3.5-5.5); Sodium 151 mmol/L (135-145); Total Protein 7.1 g/dL (6.2-8.2)
[2022-01-25 06:48] LABS: Vitamin A 43 ug/dL (38-106)
[2022-01-25 17:17] LABS: Selenium 101 mcg/L (63-160)
[2022-01-27 13:16] LABS: Vit B1(Thiamine) 77 ug/L (38-122)
== END ==
LOC: BARWHC3 13:18
PROVIDERS: ATTEND Surgery Plastic and Reconstructive Surgery
DX: E66.01 Morbid (severe) obesity due to excess calories (principal); E89.1 Postprocedural hypoinsulinemia; D50.8 Other iron deficiency anemias; E44.0 Moderate protein-calorie malnutrition; K74.1 Hepatic sclerosis; I11.0 Hypertensive heart disease with heart failure; J44.9 Chronic obstructive pulmonary disease, unspecified; I25.2 Old myocardial infarction; G45.9 Transient cerebral ischemic attack, unspecified; I13.10 Hypertensive heart and chronic kidney disease without heart failure, with stage 1 through stage 4 chronic kidney disease, or unspecified chronic kidney disease; N18.30 Chronic kidney disease, stage 3 unspecified; M79.3 Panniculitis, unspecified; K25.9 Gastric ulcer, unspecified as acute or chronic, without hemorrhage or perforation; Z79.82 Long term (current) use of aspirin; Z91.040 Latex allergy status; Z88.1 Allergy status to other antibiotic agents; Z88.0 Allergy status to penicillin; Z68.44 Body mass index [BMI] 60.0-69.9, adult
CPT/HCPCS: 84255; 84134; 84425; 80061; 80053; 82607; 82728; 82525; 82746; 83540; 83550; 83735; 84100; 84443; 84590; 84630; 85027; 85610; 85730; 82306; 83970; 83036; 93005; 36415; G0463; 99211

== ENCOUNTER → 2022-02-18 | Outpatient (CLI) | payer OTHER ==
[2022-02-18 11:02] VITALS: BMI 65.1
== END ==
LOC: BARWHC3 08:27
PROVIDERS: ATTEND Surgery Plastic and Reconstructive Surgery
DX: E66.01 Morbid (severe) obesity due to excess calories (principal); Z71.3 Dietary counseling and surveillance; Z68.44 Body mass index [BMI] 60.0-69.9, adult; Z88.1 Allergy status to other antibiotic agents; Z91.040 Latex allergy status; Z88.0 Allergy status to penicillin
CPT/HCPCS: 97804

== ENCOUNTER 2022-09-16 11:25 | Inpatient (IN) | payer OTHER ==
[~2022-09-16 11:25] MED LIST changes: +CHLORHEXIDINE GLUCONATE 15 ML CUP MUCOUS MEM PRN; +DEXAMETHASONE SOD PHOSPHATE 4 MG/ML 1 ML VIAL IV ONE; +ENOXAPARIN 40 MG/0.4 ML SYRINGE SQ PRN; -LACTATED RINGERS 1,000 ML IV SCH; +ONDANSETRON 4 MG/2 ML VIAL IVP ONE; +PANTOPRAZOLE 40 MG/10 ML VIAL IVP PRN; +ceFAZolin 3 GM in SODIUM CHLORIDE 0.9% 100 ML IVPB PRN
[2022-09-16] MEDS: LACTATED RINGERS 1,000 ML IV SCH (13:18)
[2022-09-16] MEDS ORDERED: SCOPOLAMINE 1 MG/72 HR PATCH TRANSDERM STA (15:16)
--- NOTE | 2022-09-16 15:18 | P.GSHP ---
History of Present Illness H&P Date: 09/16/22 CHIEF COMPLAINT: Morbid obesty HISTORY OF PRESENT ILLNESS: Mildred Nunes is a 57-year-old female who comes with lifelong morbid obesity. She has tried multiple times for weight loss without success. Her highest weight is present at 393 pounds. She has been undergoing medical supervised weight loss and lost 30 pounds in 1 year. She reports difficulty in waking with chronic edema and panniculitis of her pannus. She is looking into the sleeve gastrectomy. At height of 5 feet 2.5 inches, her ideal body weight is 135 pounds. Her highest weight is present, 393 pounds with BMI 70.9. She comes in 363 pounds from 393 pounds, 1 year ago. She has lost 30 pounds in 1 year. She is 228 pounds overweight. PAST MEDICAL HISTORY: 1. Morbid obesity due to excess calories 2. Body mass index of 70.9, initial 3. Hypertensive heart disease 4. Congestive heart failure 5. Asthma 6. Chronic obstructive pulmonary disease 7. Cerebrovascular attack 8. Transient ischemic attack 9. Myocardial infarction PAST SURGICAL HISTORY: 1. Incisional hernia x 3 2. section x 3 3. Cholecystectomy 4. Heart catheterization HOME MEDICATIONS: Home Medications Medication Instructions Recorded Confirmed Aspirin 81 mg PO DAILY 12/05/20 01/24/22 Cyanocobalamin [Vitamin B-12] 1,000 mcg PO DAILY 12/05/20 01/24/22 Ferrous Sulfate [Iron (65 MG 65 mg PO DAILY 12/05/20 01/24/22 Elemental)] Lisinopril [Prinivil] 10 mg PO DAILY 01/24/21 01/24/22 Allopurinol [Zyloprim] 100 mg PO DAILY 01/03/22 01/24/22 Diltiazem HCl [Diltiazem HCl 24Hr 300 mg PO DAILY 01/03/22 01/24/22 ER ([place])] Furosemide [Lasix] 20 mg PO DAILY 01/03/22 01/24/22 Calcium Citrate 1,200 mg PO DAILY 01/25/22 01/25/22 Ergocalciferol [Vitamin D2 (1250 50,000 unit PO WEEKLY 01/25/22 01/25/22 Mcg = 77546 Iu)] Zinc 50 mg PO DAILY 03/04/22 03/04/22 Previous Rx's Medication Instructions Recorded Omeprazole [PriLOSEC] 40 mg PO DAILY #14 cap 01/07/22 ALLERGIES: Allergies Allergy/AdvReac Type Severity Reaction Status Date / Time cephalexin [From Keflex] Allergy Rash/Hives Verified 01/03/22 14:48 latex Allergy lip and Verified 01/24/21 16:11 tongue swelling Penicillins Allergy Rash/Hives Verified 01/03/22 14:48 SOCIAL HISTORY: No past tobacco use. FAMILY HISTORY: No family history of ulcerative colitis disease or Crohn's disease. Family history of morbid obesity. No lupus in the family. No reports of stomach or esophageal cancer. REVIEW OF ORGAN SYSTEMS: CONSTITUTIONAL: At height of 5 feet 2.5 inches, her ideal body weight is 135 pounds. Her highest weight is present, 393 pounds with BMI 70.9. She is 258 pounds overweight. HEENT: Denies any active troubles with vision or hearing. ENDOCRINE: Denies diabetes. No hypothyroidism. CARDIOVASCULAR: Past reports of palpitations or heart attacks or chest pain. Has hypertensive heart disease. Has heart failure. Past myocardial infarction. Has heart murmur. RESPIRATORY: Has daytime somnolence. Has asthma. Has chronic obstructive pulmonary disease. GASTROINTESTINAL: Denies any bright red blood per rectum. No diarrhea. No constipation. Has gastroesophageal reflux disease. GENITOURINARY: Has bladder urgency. No recent blood in urine MUSCULOSKELETAL: Has lower back pain and joint pain. Has osteoarthritis of the knees. History of bilateral lower extremity edema. NEURO: No headaches. No seizure disorders. Has neuropathy. Prior stroke with CVA. Has memory impairment. PSYCH: Denies depression. No suicidal ideation. RHEUMATOLOGIC: No lupus. No rheumatoid arthritis. HEMATOLOGIC: Denies any abnormal bleeding or bruising. SKIN: Chronic panniculitis. No skin cancer. PHYSICAL EXAM: VITAL SIGNS: Height 5 foot 2.5 inches, weight 363 pounds. BMI 65.5 GENERAL: Well-developed in no acute distress. HEENT: No scleral icterus. Extraocular movements grossly intact. Hears conversational speech. No nasal drainage. NECK: Supple without lymphadenopathy. CHEST: Nonlabored respirations with equal bilateral excursions. CARDIOVASCULAR: Regular rate and regular rhythm. Distal 2+ pulses. ABDOMEN: Obese, soft, nontender, nondistended. Pannus over 40 pounds, grade 5. MUSCULOSKELETAL: No clubbing, cyanosis. NEURO: No focal or lateralizing signs. Cranial nerves 2 through 12 grossly within normal limits. PSYCH: Appropriate affect. Alert and oriented to person, place and time. SKIN: Good skin turgor. Well perfused. ASSESSMENT: 1. Morbid obesity due to excess calories 2. Body mass index of 70.9, initial to 65.5 3. Hypertensive heart disease 4. Congestive heart failure 5. Asthma 6. Chronic obstructive pulmonary disease 7. Cerebrovascular attack 8. Transient ischemic attack 9. Myocardial infarction 10. Renal insufficiency due to hypertenisve heart disease, Stage 3 11. Panniculitis 12. Gastric ulcers 13. History of gastric ulcers PLAN: 1. Bariatric options between a sleeve, band and a Jair-en-Y gastric bypass were reviewed in detail. The patient elected for a sleeve gastrectomy. Robotic assisted approach described. 2. The [place] [facility] Data was also reviewed with benefits and risks as described. 3. An 8 page second-generation bariatric consent form was reviewed in detail including potential of bleeding, infection, leaks, adequate weight loss, nutritional deficiencies which the patient demonstrated understanding of the risks. 4. A 2 week high-protein low caloric 800 kcal diet described to address hepat omegaly. 5. Preoperative labs including complete metabolic panel and CBC with type and screen recommended. 6. DVT prophylaxis per [place] [facility]. 7. Antibiotic prophylaxis. 8. Inpatient hospitalization anticipated for more than 2 nights. 9. All questions and concerns were addressed with the patient. 10. She is at elevated risk with history of myocardial infarction, bowel obstructions 11. Overall, patient has expressed understanding of bariatric care including postoperative diet and commitment of lifestyle. Patient should benefit from surgical intervention for correction of her morbid obesity. Past Medical History Past Medical History: Asthma, Chest Pain / Angina, Heart Failure, COPD, CVA/TIA, Hypertension, Memory Impairment, Myocardial Infarction ([place]) Additional Past Medical History / Comment(s): incisional hernia, hx CVA 2017 and CVA June 22, 2020-generalized weakness and memory impairment, heart murmur,uses oxygen 2 Liters [place] @[facility], hospitalized in [place] May 2022 for chest pain-no c urrent problems Last Myocardial Infarction Date:: 2009 History of Any Multi-Drug Resistant Organisms: None Reported Past Surgical History: Section, Cholecystectomy, Heart Catheterization Additional Past Surgical History / Comment(s): c sections x 3 Past Anesthesia/Blood Transfusion Reactions: No Reported Reaction Additional Past Anesthesia/Blood Transfusion Reaction / Comment(s): no problems with prior blood transfusions Smoking Status: Never smoker - Past Family History Mother Family Medical History: Coronary Artery Disease (CAD), Hypertension Father Family Medical History: Coronary Artery Disease (CAD), Hypertension Medications and Allergies Home Medications Medication Instructions Recorded Confirmed Type Aspirin 81 mg PO DAILY 12/05/20 09/16/22 History Cyanocobalamin [Vitamin B-12] 1,000 mcg PO DAILY 12/05/20 09/16/22 History Ferrous Sulfate [Iron (65 MG 65 mg PO DAILY 12/05/20 09/16/22 History Elemental)] lisinopriL [Prinivil] 10 mg PO DAILY 01/24/21 09/16/22 History Furosemide [Lasix] 20 mg PO DAILY 01/03/22 09/16/22 History dilTIAZem HCL [dilTIAZem HCL 24Hr 300 mg PO DAILY 01/03/22 09/16/22 History ER ([place])] Ergocalciferol [Vitamin D2 (1250 50,000 unit PO WEEKLY 01/25/22 09/16/22 History Mcg = 54469 Iu)] Albuterol Inhaler [Ventolin Hfa 1 - 2 puff INHALATION Q6H PRN 08/07/22 09/16/22 History Inhaler] Budesonide-Formot 160-4.5 Mcg 2 puff INHALATION BID 08/07/22 09/16/22 History [Symbicort 160-4.5 Mcg Inhaler] Isosorbide Mononitrate ER [Imdur] 30 mg PO DAILY 08/07/22 09/16/22 History Vitamin A 2,400 mcg PO DAILY 08/07/22 09/16/22 History Allergies Allergy/AdvReac Type Severity Reaction Status Date / Time cephalexin [From Keflex] Allergy Rash/Hives Verified 09/16/22 13:23 latex Allergy lip and Verified 09/16/22 13:23 tongue swelling Penicillins Allergy Rash/Hives Verified 09/16/22 13:23 Surgical - Exam Vital Signs Temp Pulse Resp BP Pulse Ox 97.9 F 79 18 127/78 96 09/16/22 13:18 09/16/22 13:18 09/16/22 13:18 09/16/22 13:18 09/16/22 13:18 Results - Labs 09/16/22 13:38 Diabetes panel 09/16/22 Range/Units 13:38 Potassium 4.6 (3.5-5.1) mmol/L Pituitary panel 09/16/22 Range/Units 13:38 Potassium 4.6 (3.5-5.1) mmol/L Adrenal panel 09/16/22 Range/Units 13:38 Potassium 4.6 (3.5-5.1) mmol/L
[2022-09-16] MEDS ORDERED: NEOSTIGMINE 1 MG/ML 10 ML VIAL ONE (17:44)
[2022-09-16] MEDS ORDERED: ROCURONIUM 10 MG/ML (5 ML VIAL) IV ONE (17:44)
[2022-09-16] MEDS ORDERED: GLYCOPYRROLATE 0.2 MG/ML 2 ML VIAL ONE (17:44)
[2022-09-16] MEDS ORDERED: MIDAZOLAM 2 MG/2 ML VIAL ONE (17:44)
[2022-09-16] MEDS ORDERED: SUCCINYLCHOLINE CHLORIDE 200 MG/10 ML VIAL IV ONE (17:44)
[2022-09-16] MEDS ORDERED: PROPOFOL 10 MG/ML 20 ML VIAL IV ONE (17:44)
[2022-09-16] MEDS ORDERED: HYDROmorphone (PF) 1 MG/ML ONE (17:44)
[2022-09-16] MEDS ORDERED: LIDOCAINE 2% INJ 20 MG/ML (2 ML VIAL) ONE (17:44)
[2022-09-16] MEDS ORDERED: fentaNYL (PF) 50 MCG/ML 2 ML AMP ONE (17:44)
[2022-09-16] MEDS ORDERED: LIDOCAINE 0.5%-EPI 1:200,000 50 ML VIAL SQ ONE (18:24)
[2022-09-16] MEDS ORDERED: LACTATED RINGERS 1,000 ML IV ONE (19:02)
[2022-09-16] MEDS ORDERED: HYDROmorphone 1 MG/ML 1 ML SYRINGE IVP PRN (20:05)
[2022-09-16] MEDS ORDERED: NALOXONE 0.4 MG/ML 1 ML VIAL IV PRN ×2 (20:05→20:09)
[2022-09-16] MEDS ORDERED: HYOSCYAMINE ORAL DROPS 1.875 MG/15 ML BOTTLE PO PRN (20:05)
[2022-09-16] MEDS ORDERED: diphenhydrAMINE 50 MG/ML 1 ML VIAL IVP PRN (20:05)
[2022-09-16] MEDS ORDERED: SODIUM CHLORIDE 0.9% 1,000 ML IV ONE (20:08)
--- NOTE | 2022-09-16 20:12 | P.OP ---
Date of Procedure: 09/16/22 Description of Procedure: SURGEON: DIXIE REAL MD PREOPERATIVE DIAGNOSES: 1. Morbid obesity due to excess calories 2. Body mass index of 70.9, initial to 65.5 3. Hypertensive heart disease 4. Congestive heart failure 5. Asthma 6. Chronic obstructive pulmonary disease 7. Cerebrovascular attack 8. Transient ischemic attack 9. Myocardial infarction 10. Renal insufficiency due to hypertenisve heart disease, Stage 3 11. Panniculitis 12. Gastric ulcers 13. History of gastric ulcers POSTOPERATIVE DIAGNOSES: 1. Morbid obesity due to excess calories 2. Body mass index of 70.9, initial to 65.5 3. Hypertensive heart disease 4. Congestive heart failure 5. Asthma 6. Chronic obstructive pulmonary disease 7. Cerebrovascular attack 8. Transient ischemic attack 9. Myocardial infarction 10. Renal insufficiency due to hypertenisve heart disease, Stage 3 11. Panniculitis 12. Gastric ulcers 13. History of gastric ulcers OPERATION: 1. Robotic assisted daVinci Xi laparoscopic sleeve gastrectomy with 40-Mongolian bougie, multiport. 2. Intraoperative esophagogastroduodenoscopy. ANESTHESIA: Gen. local anesthetic ESTIMATED BLOOD LOSS: 5 mL SPECIMENS REMOVED: Sleeve gastrectomy COMPLICATIONS: None. FINDINGS: 1. Negative intraoperative esophagogastrojejunoscopy leak test. 2. No hepatomegaly and no large hiatus hernia. 3. Total of 6 staplers used including 2 - 60 mm green robot jhonny and 4 - 60 mm blue robot loads used to create the gastric sleeve. 4. Sleeve gastrectomy, 29 x 6 cm 5. Moderate to severe pannus over 50 pounds with active panniculitis INDICATIONS: Mildred Nunes is a 57-year-old female who comes with lifelong morbid obesity. She has tried multiple times for weight loss without success. Her highest weight is present at 393 pounds. She has been undergoing medical supervised weight loss and lost 30 pounds in 1 year. She reports difficulty in waking with chronic edema and panniculitis of her pannus. She is looking into the sleeve gastrectomy. At height of 5 feet 2.5 inches, her ideal body weight is [address] weight is 393 pounds with BMI 70.9. She is over 228 pounds overweight. All surgical options for morbid obesity had been described using the [place] [facility] collaborative comorbidity resolution including complication risk score. A second-generation bariatric consent form was described in detail including the possibility of protein malnutrition, leaks, gastric stricture, venous thrombosis, gastroesophageal reflux disease, need for further surgery for which she demonstrated understanding. Benefits and risks of the procedure were described at length. Informed consent was obtained. DESCRIPTION: The patient was brought into the operating room theater. Preoperatively she had received Lovenox subcutaneously for DVT prophylaxis. Additionally she had Peridex oral solution as an oral decontaminant. After general induction, the abdomen was prepped and draped in standard sterile fashion. An Ioban draping was placed along the abdomen. A robotic da Rudy Xi system was prepped and primed. At 15 cm from the xiphoid, proposed port sites were marked with indelible marker along the anterior axillary line bilaterally, mid axillary line bilaterally with each ports were marked 10 to 15 cm from each other. The robotic stapler port was marked for the right midclavicular line. A 5 mm 0 degrees laparoscopic trocar entry was performed along the left upper quadrant. The abdomen was insufflated to 15 mmHg pressure was tolerated well. Diagnostic laparoscopy demonstrated no injury to bowel, viscera, or mesentery. No evidence of large hiatus hernia was identified. The liver edge was sharp consistent with 2 week low-carb high-protein diet. A 8 mm port was placed along the left upper abdominal wall after exchanging the 5 mm port. A separate 8 mm port was placed along the left lateral abdominal wall. Please note that the ports were placed at least 20 cm away from the target anatomy. Care was taken to check each robotic arms were safely away from collision with the bed or the patient. At the epigastrium, a medium sized Missy liver retractor was placed under direct visualization with the [employer] Clothier placed under the right shoulder of the patient. Next, 12-mm robot stapler port was placed along the right upper quadrant. The camera 8-mm port was maintained along the epigastrium. The patient was repositioned in reverse Trendelenburg position at 21-degrees after lowering the bed. The robot was docked along the left side of the patient. Using a grasper for arm 4, a vessel sealer for arm 3, including grasper for arm 1, the robotic system was docked and primed as described. Instruments were interchanged by the physician assistant surgery for stapler loads. The camera was placed at 30- degrees down. I had sat at the console. The pylorus was identified and 6 cm proximally along the greater curvature of the stomach, the short gastrics were mobilized upwards to the angle of His using a vessel sealer. Hemostasis was excellent during this portion of the procedure. Next, the upper pole of the stomach was adherent to the left abdullahi, which was gently dissected free using atraumatic grasper. I went to the head of the bed and placed 40-Mongolian blunt bougie into the sto mach. The bougie was readjusted by the nurse clothespin drier operator. Robotic stapler black load 60 mm 2 followed by green 60 mm x 5 loads were used to create the sleeve. Initial firing was across the antrum of the stomach towards the angle of His. The staple line was linear without corkscrewing. The space from the angularis incisura of the sleeve was approximately 4 cm. I then went to the head of the bed to perform the intraoperative esophagogastroduodenoscopy leak test. The bougie was withdrawn. The upper pole of the stomach was bathed using normal saline solution. The scope was withdrawn with careful inspection along the staple line for which no leaks were found along the entire length. Additionally,the sleeve was completely hemostatic without any encroachment along the angularis incisura. Its topology was a soft "J". No stricture was encountered upon placement of the scope. The GI tract was desufflated. The patient tolerated this portion of the procedure well. The scope was completely withdrawn. The robot was undocked. I then rescrubbed into case, whereby the irrigation fluid was aspirated from the abdominal cavity. Tisseel fibrin sealant was placed along the entire staple length. Once dried the Missy liver retractor was removed. Attention was now brought to removal of the specimen. The distal end of the sleeve gastrectomy specimen was brought out through the 12 mm port at the left upper quadrant. The specimen was gently removed en total. No contamination had occurred during this process. All instruments and pneumoperitoneum including irrigation fluid was removed from the abdominal cavity. The 12 mm port site was closed using 0-Vicryl and Kody Nunes and irrigated with diluted hydrogen peroxide. The final incisions were closed using subcuticular interrupted suture of 4-0 Monocryl. Exofin was applied to the skin once the skin had been cleansed. OptiFoam dressing was placed along the stomach extraction site. The sleeve specimen was measured and checked also for leaks which none were found. At the end of the procedure, needle, sponge, and instrument count was verified correct by the surgical nurse. The patient was taken to the postanesthesia care unit in stable condition. She had tolerated the procedure well. Intraoperative films and findings were reviewed with the patient's family.
[2022-09-16] MEDS: HYDROmorphone 0.5 MG/0.5 ML SYRINGE IVP PRN ×2 (20:22→20:53)
[2022-09-16] MEDS ORDERED: ENALAPRILAT 1.25 MG/ML 1 ML VIAL IVP ONE (20:50)
[2022-09-16] MEDS ORDERED: fentaNYL PCA 500 MCG/50 ML BAG IV PRN (21:36)
[2022-09-16] MEDS ORDERED: DEXAMETHASONE SOD PHOSPHATE 10 MG/ML 1 ML VIAL IVP ONE (22:00)
[2022-09-16] MEDS: 0.9% NACL WITH KCL 20 MEQ/L 1,000 ML IV SCH (23:22)
[2022-09-17] MEDS ORDERED: ceFAZolin 3 GM in SODIUM CHLORIDE 0.9% 100 ML IVPB SCH ×2
[2022-09-17] MEDS: DEXAMETHASONE SOD PHOSPHATE 4 MG/ML 1 ML VIAL IVP SCH ×3 (00:02→14:57)
[2022-09-17] MEDS: ACETAMINOPHEN IV (For NPO) 1,000 MG in EMPTY BAG 1 BAG IVPB SCH ×3 (00:03→10:29)
[2022-09-17] MEDS: PANTOPRAZOLE 40 MG/10 ML VIAL IV SCH ×2 (00:03→10:29)
[2022-09-17] MEDS: ONDANSETRON 4 MG/2 ML VIAL IVP SCH ×3 (01:00→14:57)
[2022-09-17] MEDS: SIMETHICONE 40 MG/0.6 ML DROPS 2,000 MG/30 ML BOTTLE PO SCH ×3 (01:01→14:58)
[2022-09-17] MEDS: 0.9% NACL WITH KCL 20 MEQ/L 1,000 ML IV SCH (05:23)
[2022-09-17] MEDS: LACTATED RINGERS 1,000 ML IV SCH (06:22)
[2022-09-17] MEDS: ALBUTEROL NEBULIZED 2.5 MG/3 ML INHALATION SCH ×3 (07:11→15:35)
[2022-09-17 07:52] LABS: Basophils % (A) 0 %; Eosinophils # (A) 0.1 k/uL (0-0.7); Eosinophils % (A) 1 %; HCT 49.7 % (34.0-46.0); HGB 16.2 gm/dL (11.4-16.0); Hypochromasia Slight; Lymphocytes # (A) 0.4 k/uL (1.0-4.8); Lymphocytes % (A) 3 %; MCHC 32.5 g/dL (31.0-37.0); Mean Platelet Volume 9.2; Monocytes # (A) 0.2 k/uL (0-1.0); Monocytes % (A) 1 %; Neutrophils # (A) 12.4 k/uL (1.3-7.7); Neutrophils % (A) 95 %; Platelet Count 225 k/uL (150-450); RDW 14.3 % (11.5-15.5)
[2022-09-17] MEDS ORDERED: SYMBICORT 160-4.5 MCG INHALER INHALATION SCH (08:00)
[2022-09-17] MEDS ORDERED: 0.9% NACL WITH KCL 20 MEQ/L 1,000 ML IV SCH (08:00)
[2022-09-17 08:13] LABS: Calcium 9.1 mg/dL (8.4-10.2); Magnesium 1.8 mg/dL (1.6-2.3); Phosphorus 4.3 mg/dL (2.5-4.5); Potassium 5.3 mmol/L (3.5-5.1)
[2022-09-17] MEDS ORDERED: SODIUM CHLORIDE 0.9% 1,000 ML IV SCH (08:45)
[2022-09-17] MEDS ORDERED: DILTIAZEM CD 300 MG CAP.ER.24H PO SCH (09:00)
[2022-09-17] MEDS ORDERED: ISOSORBIDE MONONITRATE ER 30 MG TAB.ER.24H PO SCH (09:00)
[2022-09-17] MEDS ORDERED: FUROSEMIDE 20 MG TAB PO SCH (09:00)
[2022-09-17] MEDS ORDERED: lisinopriL 10 MG TAB PO SCH (09:00)
[2022-09-17] MEDS ORDERED: ENOXAPARIN 40 MG/0.4 ML SYRINGE SQ SCH (09:00)
--- NOTE | 2022-09-17 10:08 | FL ---
EXAMINATION TYPE: FL UGI DATE OF EXAM: 09/17/2022 COMPARISON: NONE HISTORY: Postoperative gastric sleeve. TECHNIQUE: A single contrast UGI study is performed with Isovue-370 orally. A total of 13 seconds o f fluoroscopic time was utilized during procedure and 131 images obtained. FINDINGS: The esophagus shows normal motility and emptying into the stomach. No evidence of hiatal hernia or s tricture noted. Postoperative changes from gastric sleeve. No evidence for leak. Contrast easily passes through the e sophagus through the stomach and into the proximal duodenum. No evidence of any mass or ulcer disease . IMPRESSION: Postoperative changes of gastric sleeve without evidence for leak.
[2022-09-17 13:04] VITALS: BMI 63.7
[2022-09-17 14:15] VITALS: BP 154/73; RESP 18; TEMP 97.8
[2022-09-17 15:43] VITALS: PULSE 80
--- NOTE | 2022-09-17 15:47 | P.DS ---
Providers Date of admission: 09/16/22 13:02 Expected date of discharge: 09/17/22 Attending physician: Emiliana Briseno Primary care physician: Audrey Rosales Hospital Course: Discharge diagnosis 1. Morbid obesity due to excess calories 2. Body mass index of 70.9, initial to 65.5 3. Hypertensive heart disease 4. Congestive heart failure 5. Asthma 6. Chronic obstructive pulmonary disease 7. Cerebrovascular attack 8. Transient ischemic attack 9. Myocardial infarction 10. Renal insufficiency due to hypertenisve heart disease, Stage 3 11. Panniculitis 12. Gastric ulcers 13. History of gastric ulcers 14. Steroid-induced leukocytosis 15. Mild hyperkalemia likely due to IV fluids with potassium and renal insufficiency Hospital course Mildred Nunes is a 57-year-old female who comes with lifelong morbid obesity. Patient is status post robotic-assisted laparoscopic sleeve gastrectomy. Patient tolerated surgery well. Her pain is controlled. She is up and ambulating. She is tolerating diet. She is afebrile. She is stable for discharge. Physician Abrasive Grader Helper note has been reviewed by physician. Signing provider agrees with the documented findings, assessment, and plan of care. Patient Condition at Discharge: Stable Plan - Discharge Summary Discharge Rx Participant: No New Discharge Prescriptions: New bisacodyL [Dulcolax] 5 mg PO DAILY PRN #10 tab PRN Reason: Constipation Acetaminophen Tab [Tylenol] 1,000 mg PO Q6HR PRN #30 tablet PRN Reason: Pain Simethicone 40 mg/0.6 ml Drops [Mylicon Drops] 40 mg PO PCHS PRN #30 ml PRN Reason: Gas Omeprazole [PriLOSEC] 40 mg PO DAILY #30 cap Ondansetron Odt [Zofran Odt] 4 mg PO Q8HR PRN #9 tab PRN Reason: Nausea Continue Aspirin 81 mg PO DAILY lisinopriL [Prinivil] 10 mg PO DAILY Budesonide-Formot 160-4.5 Mcg [Symbicort 160-4.5 Mcg Inhaler] 2 puff INHALATION BID Albuterol Inhaler [Ventolin Hfa Inhaler] 1 - 2 puff INHALATION Q6H PRN PRN Reason: Shortness Of Breath dilTIAZem HCL [dilTIAZem HCL 24Hr ER (LA)] 300 mg PO DAILY Isosorbide Mononitrate ER [Imdur] 30 mg PO DAILY Discontinued Cyanocobalamin [Vitamin B-12] 1,000 mcg PO DAILY Ferrous Sulfate [Iron (65 MG Elemental)] 65 mg PO DAILY Furosemide [Lasix] 20 mg PO DAILY Ergocalciferol [Vitamin D2 (1250 Mcg = 90853 Iu)] 50,000 unit PO WEEKLY Vitamin A 2,400 mcg PO DAILY Discharge Medication List Aspirin 81 mg PO DAILY 12/05/20 [History] lisinopriL [Prinivil] 10 mg PO DAILY 01/24/21 [History] dilTIAZem HCL [dilTIAZem HCL 24Hr ER (LA)] 300 mg PO DAILY 01/03/22 [History] Albuterol Inhaler [Ventolin Hfa Inhaler] 1 - 2 puff INHALATION Q6H PRN 08/07/22 [History] Budesonide-Formot 160-4.5 Mcg [Symbicort 160-4.5 Mcg Inhaler] 2 puff INHALATION BID 08/07/22 [History] Isosorbide Mononitrate ER [Imdur] 30 mg PO DAILY 08/07/22 [History] Acetaminophen Tab [Tylenol] 1,000 mg PO Q6HR PRN #30 tablet 09/17/22 [Rx] Omeprazole [PriLOSEC] 40 mg PO DAILY #30 cap 09/17/22 [Rx] Ondansetron Odt [Zofran Odt] 4 mg PO Q8HR PRN #9 tab 09/17/22 [Rx] Simethicone 40 mg/0.6 ml Drops [Mylicon Drops] 40 mg PO PCHS PRN #30 ml 09/17/22 [Rx] bisacodyL [Dulcolax] 5 mg PO DAILY PRN #10 tab 09/17/22 [Rx] Follow [facility] [facility] [place] [place] [facility] [place] [facility] 9:00 am Patient Instructions/Handouts: *Surgery [facility] - Scopalamine Patch Instructions Activity/Diet/Wound Care/Special Instructions: Liquid diet only for 2 weeks No lifting over 4 pounds in 4 weeks May Shower. No soaking in bath tubs 2 weeks Please notify your surgeon if you develop nausea and vomiting including new onset of abdominal pain. Continue to use incentive spirometry to prevent pneumonias. Please continue to ambulate at home to prevent blood clots in legs. Follow-up at the bariatric center. May shower. Dressings to be discontinued by surgeon in the office. Drink 64 oz of fluid daily. Start protein shakes on . Notify bariatric center for temp over 101.0, increased pain, drainage from incisions. No straws or carbonated beverages. Liquid diet only. Sugar content should be less than 6 g to avoid dumping syndrome. Take MOM for constipation. CRUSH, OPEN, OR CUT TABLETS LARGER THAN A SIZE OF A TIC TAC Hold on taking all vitamins and Lasix until seen by surgeon in office Discharge Disposition: HOME SELF-CARE
[2022-09-18] MEDS ORDERED: bisacodyL 5 MG TABLET.DR PO PRN (08:00)
== END 2022-09-17 17:12 | disposition home or self-care (01) | DRG 620 ==
LOC: 2ORMAIN 13:02 → 4SSUR 21:17
PROVIDERS: ADMIT Surgery Plastic and Reconstructive Surgery; ATTEND Surgery Plastic and Reconstructive Surgery
PROC: 8E0W4CZ Robotic Assisted Procedure of Trunk Region, Percutaneous Endoscopic Approach (ICD-10-PCS; 2022-09-16)
PROC: 0DJ08ZZ Inspection of Upper Intestinal Tract, Via Natural or Artificial Opening Endoscopic (ICD-10-PCS; 2022-09-16)
PROC: 0DB64Z3 Excision of Stomach, Percutaneous Endoscopic Approach, Vertical (ICD-10-PCS; principal; 2022-09-16 14:50)
DX: E66.01 Morbid (severe) obesity due to excess calories (principal); I13.0 Hypertensive heart and chronic kidney disease with heart failure and stage 1 through stage 4 chronic kidney disease, or unspecified chronic kidney disease; D72.829 Elevated white blood cell count, unspecified; T38.0X5A Adverse effect of glucocorticoids and synthetic analogues, initial encounter; E87.5 Hyperkalemia; N18.30 Chronic kidney disease, stage 3 unspecified; I25.2 Old myocardial infarction; I50.9 Heart failure, unspecified; J44.9 Chronic obstructive pulmonary disease, unspecified; M79.3 Panniculitis, unspecified; Z68.44 Body mass index [BMI] 60.0-69.9, adult; Z82.3 Family history of stroke; Z87.11 Personal history of peptic ulcer disease; Z79.51 Long term (current) use of inhaled steroids; Z79.82 Long term (current) use of aspirin; Z79.899 Other long term (current) drug therapy; Z82.49 Family history of ischemic heart disease and other diseases of the circulatory system; Z86.73 Personal history of transient ischemic attack (TIA), and cerebral infarction without residual deficits; Z88.0 Allergy status to penicillin; Z88.4 Allergy status to anesthetic agent; Z91.040 Latex allergy status
CPT/HCPCS: 74240; 80051; 81025; 82310; 82565; 83735; 84100; 84132; 84520; 85025; 86850; 86900; 86901; 88307; 94640

== ENCOUNTER → 2022-10-02 | Outpatient (CLI) | payer OTHER ==
[2022-10-02 14:45] VITALS: BP 130/77; PULSE 71; TEMP 97.7; BMI 60.8
--- NOTE | 2022-10-02 15:07 | P.BASOAP ---
Subjective Progress Note Date: 10/02/22 She reports occasional reflux. She is drinking her fluids. She is looking anti- nausea. Zofran and omeprazole prescribed. Objective - Vital Signs Vital signs: Vital Signs Temp 97.7 F 10/02/22 14:36 Pulse 71 10/02/22 14:36 Resp BP 130/77 10/02/22 14:36 Pulse Ox FiO2 Intake & Output 10/01/22 10/02/22 10/02/22 18:59 06:59 18:59 Weight 153.314 kg Assessment/Plan Plan: Date: 10/02/22 Initial Weight: 178.715 kg Initial BMI: 70.9 Current Weight: 153.314 kg Current BMI: 60.8 Type of Surgery: Total Volume in Band: Previous Volume: Volume Removed: Volume Added: Band Size:
== END ==
LOC: BARWHC3 13:35
PROVIDERS: ATTEND Surgery Plastic and Reconstructive Surgery
DX: E66.01 Morbid (severe) obesity due to excess calories (principal); Z68.44 Body mass index [BMI] 60.0-69.9, adult; Z88.0 Allergy status to penicillin; Z91.040 Latex allergy status; Z88.1 Allergy status to other antibiotic agents
CPT/HCPCS: 99211

== ENCOUNTER → 2022-10-23 | Outpatient (CLI) | payer OTHER ==
[2022-10-23 15:04] VITALS: BP 124/69; PULSE 75; TEMP 98.1; BMI 59.3
--- NOTE | 2022-10-23 15:44 | P.BASOAP ---
Subjective Progress Note Date: 10/23/22 She is getting 40 grams of protein in shakes. She is under her protein goal. She is doing well. Objective - Vital Signs Vital signs: Vital Signs Temp 98.1 F 10/23/22 15:00 Pulse 75 10/23/22 15:00 Resp BP 124/69 10/23/22 15:00 Pulse Ox FiO2 Intake & Output 10/22/22 10/23/22 10/23/22 18:59 06:59 18:59 Weight 149.685 kg Assessment/Plan Plan: Date: 10/23/22 Initial Weight: 178.715 kg Initial BMI: 70.9 Current Weight: 149.685 kg Current BMI: 59.3 Type of Surgery: Total Volume in Band: Previous Volume: Volume Removed: Volume Added: Band Size:
[2022-10-23 17:16] LABS: Partial Thromboplastin Time 24.1 sec (22.0-30.0); Prothrombin Time 10.5 sec (9.0-12.0)
[2022-10-23 23:27] LABS: HCT 51.3 % (37.2-46.3); HGB 15.8 g/dL (12.0-15.0); MCH 28.9 pg (27.0-32.0); MCHC 30.8 g/dL (32.0-37.0); Mean Platelet Volume 12.2 fL (9.5-12.2); NRBC Per 100 WBC 0 /100 WBCS (0.0-0.0); Platelet Count 234 X 10*3/uL (140-440); RBC 5.46 X 10*6/uL (4.10-5.20); RDW 14.5 % (11.5-14.5); WBC 8.19 X 10*3/uL (4.50-10.00)
[2022-10-24 02:28] LABS: % Iron Saturation 19.35 (12.00-45.00); ALT 46 U/L (8-44); AST 25 U/L (13-35); African American GFR (CKD) 50.6 (60.0-200.0); Albumin 4.3 g/dL (3.8-4.9); Albumin/Globulin Ratio 1.87 (1.60-3.17); Alkaline Phosphatase 77 U/L (41-126); BUN/Creat Ratio 17.28 Ratio (12.00-20.00); Blood Urea Nitrogen 23.5 mg/dL (9.0-27.0); Carbon Dioxide 25.8 mmol/L (20.0-27.5); Chloride 105 mmol/L (96-109); Globulin 2.3 g/dL (1.6-3.3); Glucose 98 mg/dL (70-110); Iron 59 ug/dL (50-170); Magnesium 1.9 mg/dL (1.5-2.4); Non-African American GFR(CKD) 43.7 (60.0-200.0); Phosphorus 4.1 mg/dL (2.4-5.1); Potassium 5.2 mmol/L (3.5-5.5); Sodium 143 mmol/L (135-145); Total Iron Binding Capacity 302 ug/dL (228-460); Total Protein 6.6 g/dL (6.2-8.2)
[2022-10-24 12:04] LABS: Chol/HDL Ratio 4.39 Ratio; LDL Cholesterol,Calculated 93.6 mg/dL (0.0-131.0); Prealbumin 20.6 mg/dL (18.0-42.0)
[2022-10-25 07:04] LABS: Vit B1(Thiamine) 36 ug/L (38-122)
[2022-10-25 14:13] LABS: Vitamin A 62 ug/dL (38-106)
== END ==
LOC: BARWHC3 14:25
PROVIDERS: ATTEND Surgery Plastic and Reconstructive Surgery
DX: Z71.3 Dietary counseling and surveillance (principal); E66.01 Morbid (severe) obesity due to excess calories; E89.1 Postprocedural hypoinsulinemia; D50.9 Iron deficiency anemia, unspecified; K90.89 Other intestinal malabsorption; E55.9 Vitamin D deficiency, unspecified; K74.1 Hepatic sclerosis; N19 Unspecified kidney failure; T56.894A Toxic effect of other metals, undetermined, initial encounter; Z91.040 Latex allergy status; Z88.1 Allergy status to other antibiotic agents; Z88.0 Allergy status to penicillin; Z68.43 Body mass index [BMI] 50.0-59.9, adult
CPT/HCPCS: 84255; 84134; 84425; 80061; 80053; 82607; 82728; 82525; 82746; 83540; 83550; 83735; 84100; 84443; 84590; 84630; 85027; 85610; 85730; 82306; 83970; 83036; 97803; G0463; 99211

== ENCOUNTER → 2023-03-12 | Outpatient (CLI) | payer OTHER ==
[2023-03-12 14:05] VITALS: BMI 54.7
--- NOTE | 2023-03-12 14:24 | P.BASOAP ---
Subjective Progress Note Date: 03/12/23 She lost 90 pounds in 6 months. She is looking to get 200 pounds. She reports quesy. She gets sick with food. Plan for continued care with nutrition. Objective - Vital Signs Vital signs: Intake & Output 03/11/23 03/12/23 03/12/23 18:59 06:59 18:59 Weight 137.892 kg Assessment/Plan Plan: Date: Initial Weight: 178.715 kg Initial BMI: Current Weight: 137.892 kg Current BMI: 54.7 Type of Surgery: Total Volume in Band: Previous Volume: Volume Removed: Volume Added: Band Size:
[2023-03-12 14:29] VITALS: BP 140/78; PULSE 72; TEMP 97.8
== END ==
LOC: BARWHC3 13:04
PROVIDERS: ATTEND Surgery Plastic and Reconstructive Surgery
DX: E66.01 Morbid (severe) obesity due to excess calories (principal); Z68.43 Body mass index [BMI] 50.0-59.9, adult; Z88.1 Allergy status to other antibiotic agents; Z88.0 Allergy status to penicillin; Z91.040 Latex allergy status
CPT/HCPCS: 97803; G0463; 99211

== ENCOUNTER → 2023-07-09 | Outpatient (CLI) | payer OTHER ==
[2023-07-09 14:38] VITALS: BP 125/84; PULSE 79; TEMP 98.1; BMI 54.1
--- NOTE | 2023-07-09 15:15 | P.BASOAP ---
Subjective Progress Note Date: 07/09/23 She is 9 months now. She is not losing much weight. Her daughter 325 to 125 pounds now she is drinking. She has her pannus. Her pannus is 40 to 50 pounds. She needs more protein. Needs more protein. Labs are done [place] 06/24 and pending. Objective - Vital Signs Vital signs: Vital Signs Temp 98.1 F 07/09/23 14:33 Pulse 79 07/09/23 14:33 Resp BP 125/84 07/09/23 14:33 Pulse Ox FiO2 Intake & Output 07/08/23 07/09/23 07/09/23 18:59 06:59 18:59 Weight 136.531 kg Assessment/Plan Plan: Date: 07/09/23 Initial Weight: 178.715 kg Initial BMI: 70.9 Current Weight: 136.531 kg Current BMI: 54.1 Type of Surgery: Total Volume in Band: Previous Volume: Volume Removed: Volume Added: Band Size:
== END ==
LOC: BARWHC3 14:03
PROVIDERS: ATTEND Surgery Plastic and Reconstructive Surgery
DX: Z53.9 Procedure and treatment not carried out, unspecified reason (principal)
CPT/HCPCS: 97803; G0463; 99211

== ENCOUNTER → 2023-09-17 | Outpatient (CLI) | payer OTHER ==
[2023-09-17 14:03] LABS: Partial Thromboplastin Time 25.2 sec (22.0-30.0); Prothrombin Time 10.8 sec (10.0-12.5)
[2023-09-17 14:11] VITALS: BP 138/81; PULSE 93; TEMP 98; BMI 52.3
--- NOTE | 2023-09-17 14:51 | P.BASOAP ---
Subjective Progress Note Date: 09/17/23 She is on blood thinner. She has lost 100 pounds. She had strokes. Increase fluids to 190 oz daily for present weight. Journal reviewed with moderate carbs. She has lost weight more weight. She is bleeding more. Labs today. Follow up in 1 month. Needs panniculectomy. Objective - Vital Signs Vital signs: Vital Signs Temp 98 F 09/17/23 14:09 Pulse 93 09/17/23 14:09 Resp BP 138/81 09/17/23 14:09 Pulse Ox FiO2 Intake & Output 09/16/23 09/17/23 09/17/23 18:59 06:59 18:59 Weight 131.995 kg Assessment/Plan Plan: Date: 09/17/23 Initial Weight: 178.715 kg Initial BMI: 70.9 Current Weight: 131.995 kg Current BMI: 52.3 Type of Surgery: Total Volume in Band: Previous Volume: Volume Removed: Volume Added: Band Size:
[2023-09-17 19:41] LABS: % Iron Saturation 25.36 (12.00-45.00); ALT 45 U/L (8-44); AST 28 U/L (13-35); Albumin 4.1 d/dL (3.8-4.9); Albumin/Globulin Ratio 1.78 Ratio (1.60-3.17); Alkaline Phosphatase 71 U/L (41-126); BUN/Creat Ratio 19.87 Ratio (12.00-20.00); Blood Urea Nitrogen 29.8 mg/dL (9.0-27.0); Calcium 10.1 mg/dL (8.7-10.3); Carbon Dioxide 27.3 mmol/L (21.6-31.8); Chloride 103 mmol/L (96-109); Chol/HDL Ratio 3.08 Ratio; Globulin 2.3 d/dL (1.6-3.3); Glucose 106 mg/dL (70-110); Iron 70 UG/DL (50-170); Phosphorus 3.9 mg/dL (2.4-5.1); Potassium 5.5 mmol/L (3.5-5.5); Sodium 144 mmol/L (135-145); Total Bilirubin 0.5 mg/dL (0.3-1.2); Total Iron Binding Capacity 276 UG/DL (228-460); Total Protein 6.4 d/dL (6.2-8.2)
[2023-09-17 20:35] LABS: Prealbumin 23.7 mg/dL (18.0-42.0)
[2023-09-17 21:13] LABS: HCT 47.7 % (37.2-46.3); HGB 15.1 d/dL (12.0-15.0); MCH 28.6 pg (27.0-32.0); MCHC 31.7 d/dL (32.0-37.0); MCV 90.3 FL (80.0-97.0); Mean Platelet Volume 11.9 FL (9.5-12.2); NRBC Per 100 WBC 0 X 10*3/uL (0.00-0.01); Platelet Count 271 X 10*3/uL (140-440); RBC 5.28 X 10*6/uL (4.10-5.20); RDW 13.8 % (11.5-14.5)
[2023-09-19 07:08] LABS: Vitamin A 52 ug/dL (38-106)
[2023-09-19 11:13] LABS: Zinc, Serum 68 ug/dL (60-130)
[2023-09-19 12:00] LABS: Vit B1(Thiamine) 66 ug/L (38-122)
[2023-09-25 07:58] LABS: Selenium 93 mcg/L (63-160)
== END ==
LOC: BARWHC3 12:22
PROVIDERS: ATTEND Surgery Plastic and Reconstructive Surgery
DX: E66.01 Morbid (severe) obesity due to excess calories (principal); D50.8 Other iron deficiency anemias; K90.89 Other intestinal malabsorption; E55.9 Vitamin D deficiency, unspecified; K74.1 Hepatic sclerosis; N19 Unspecified kidney failure; T56.894A Toxic effect of other metals, undetermined, initial encounter; K50.90 Crohn's disease, unspecified, without complications; Z68.43 Body mass index [BMI] 50.0-59.9, adult; Z88.1 Allergy status to other antibiotic agents; Z91.040 Latex allergy status; Z88.0 Allergy status to penicillin
CPT/HCPCS: 84255; 84134; 84425; 80061; 80053; 82607; 82728; 82525; 82746; 83540; 83550; 83735; 84100; 84443; 84590; 84630; 85027; 85610; 85730; 82306; 83970; 83036; G0463; 99211

== ENCOUNTER → 2024-03-17 | Outpatient (CLI) | payer OTHER ==
--- NOTE | 2024-03-17 16:15 | P.BASOAP ---
Subjective Progress Note Date: 03/17/24 She is losing weight. SHe lost 4 pounds. She wants to get down to 200 pounds. Pannus over 40+ pounds. Has moderate sized panus with pull of back. She was sick and lost weight. Needs 1 more month of weight loss. Assessment/Plan Plan: Date: Initial Weight: 178.715 kg Initial BMI: Current Weight: Current BMI: Type of Surgery: Total Volume in Band: Previous Volume: Volume Removed: Volume Added: Band Size:
[2024-03-17 16:56] VITALS: BP 185/71; PULSE 76; TEMP 98.1; BMI 52.9
== END ==
LOC: BARWHC3 14:21
PROVIDERS: ATTEND Surgery Plastic and Reconstructive Surgery
DX: E66.01 Morbid (severe) obesity due to excess calories (principal); Z98.84 Bariatric surgery status; Z90.3 Acquired absence of stomach [part of]; Z88.1 Allergy status to other antibiotic agents; Z88.0 Allergy status to penicillin; Z91.040 Latex allergy status; Z68.43 Body mass index [BMI] 50.0-59.9, adult
CPT/HCPCS: 99211

== ENCOUNTER → 2024-08-06 | Outpatient (CLI) | payer OTHER ==
--- NOTE | 2024-08-06 15:07 | CT ---
EXAMINATION TYPE: CT abdomen pelvis w con DATE OF EXAM: 08/06/2024 COMPARISON: 08/22/2020 HISTORY: pre-op hernia repair CT DLP: 5031.7 mGycm Automated exposure control for dose reduction was used. TECHNIQUE: Helical acquisition of images was performed from the lung bases through the pelvis. CONTRAST: Performed with Oral Contrast and with IV Contrast, patient injected with 100 mL of Isovue 300. FINDINGS: The lung bases are clear. There are postsurgical changes at the GE junction. There is surgical absence of the gallbladder. There is no biliary ductal dilatation. There is no focal mass or organomegaly involving the liver, pancreas, spleen or adrenal glands. There is no solid renal mass or hydronephrosis and there is homogeneous contrast enhancement of the r enal parenchyma. The caliber the abdominal aorta is normal is no retroperitoneal adenopathy or hemorr sam. Again is a large anterior pelvic wall hernia containing large and small bowel loops but there is no b owel strangulation or obstruction. Within the hernia there is a 8.3 simple cystic mass which appears to arise from the left adnexa. It i s stable compared to the prior study The bowel loops are normal in caliber and there is no evidence o f dilatation or obstruction. No inflammatory changes are identified in the bowel wall or mesentery. There is no free intraperitoneal air or fluid. No pelvic mass, free fluid, abscess or adenopathy. The osseous structures and soft tissues are intact. IMPRESSION: Large anterior pelvic wall hernia containing large left ovarian cyst and multiple small and large bow el loops. There is no evidence of bowel obstruction or strangulation.
== END | disposition home or self-care (01) ==
LOC: RADCTMAIN 14:10
PROVIDERS: ATTEND Surgery Plastic and Reconstructive Surgery
DX: Z01.818 Encounter for other preprocedural examination (principal); K43.0 Incisional hernia with obstruction, without gangrene; K57.30 Diverticulosis of large intestine without perforation or abscess without bleeding; N83.202 Unspecified ovarian cyst, left side
CPT/HCPCS: 74177

== ENCOUNTER → 2024-08-18 | Outpatient (CLI) | payer OTHER ==
[2024-08-18 14:03] VITALS: BP 143/82; PULSE 72; RESP 16; TEMP 97.3; BMI 53.1
--- NOTE | 2024-08-18 14:38 | P.BASOAP ---
Subjective Progress Note Date: 08/18/[address] scan reviewed with them shows loss of domain, Large pannus grade 5 incorporated bowel and intestines. Recommend 2nd opinion for tertiary care management. Will need more weight loss. Improve cardiopumonary health with stairs climbing 5x daily. Recommend 50 pound weight. High risk for ICU, prolon ged intubation, high risk of complications. Objective - Vital Signs Vital signs: Vital Signs Temp 97.3 F L 08/18/24 13:53 Pulse 72 08/18/24 13:53 Resp 16 08/18/24 13:53 BP 143/82 08/18/24 13:53 Pulse Ox FiO2 Intake & Output 08/17/24 08/18/24 08/18/24 18:59 06:59 18:59 Weight 133.81 kg Assessment/Plan Plan: Date: 08/18/24 Initial Weight: 178.715 kg Initial BMI: 70.9 Current Weight: 133.81 kg Current BMI: 53.1 Type of Surgery: Total Volume in Band: Previous Volume: Volume Removed: Volume Added: Band Size:
== END ==
LOC: BARWHC3 13:28
PROVIDERS: ATTEND Surgery Plastic and Reconstructive Surgery
DX: E66.01 Morbid (severe) obesity due to excess calories (principal); Z88.1 Allergy status to other antibiotic agents; Z88.0 Allergy status to penicillin; Z91.040 Latex allergy status; Z68.43 Body mass index [BMI] 50.0-59.9, adult
CPT/HCPCS: 99211

== ENCOUNTER 2025-01-29 16:52 | Emergency (ER) | payer OTHER ==
[2025-01-29 16:58] VITALS: TEMP 98.2
[2025-01-29] MEDS ORDERED: VANCOMYCIN IV PER PHARMACY 1 EACH MISC MISCELLANE PRN (17:14)
--- NOTE | 2025-01-29 17:21 | ED ---
General Adult HPI - General Chief complaint: Recheck/Abnormal Lab/Rx Stated complaint: Post-op pain Time Seen by Provider: 01/29/25 16:58 Source: patient, RN notes reviewed, old records reviewed Mode of arrival: ambulatory Limitations: no limitations - History of Present Illness Initial comments: 59-year-old female presenting for evaluation of suspected surgical incision infection. Patient has had a complicated course after a panniculectomy performed at [facility]. She has had wound dehiscence requiring wound VAC which patient states did not work well she subsequently has been receiving dressing changes at the [facility] where [facility]. Today she had a segment of the wound that opened and drained foul-smelling fluid and was instructed to present to the emergency department for evaluation. No reported fevers. - Related Data Home Medications Medication Instructions Recorded Confirmed lisinopriL [Prinivil] 10 mg PO DAILY 01/24/21 08/18/24 dilTIAZem HCL [dilTIAZem HCL 24Hr 120 mg PO DAILY 01/03/22 08/18/24 ER (LA)] Albuterol Inhaler [Ventolin Hfa 1 - 2 puff INHALATION Q6H PRN 08/07/22 08/18/24 Inhaler] Budesonide-Formot 160-4.5 Mcg 2 puff INHALATION BID 08/07/22 08/18/24 [Symbicort 160-4.5 Mcg Inhaler] Isosorbide Mononitrate ER [Imdur] 30 mg PO DAILY 08/07/22 08/18/24 Rivaroxaban [Xarelto] 20 mg PO DAILY 03/12/23 08/18/24 Calcium Citrate/Vitamin D3 1 each PO DAILY 06/09/23 08/18/24 [Calcium Cit-Vit D3 500 mg Chew] Omeprazole [PriLOSEC] 40 mg PO DAILY PRN 05/05/24 08/18/24 bisacodyL [Dulcolax] 5 mg PO DAILY PRN 08/18/24 08/18/24 Previous Rx's Medication Instructions Recorded Acetaminophen Tab [Tylenol] 1,000 mg PO Q6HR PRN #30 tablet 09/17/22 Allergies Allergy/AdvReac Type Severity Reaction Status Date / Time cephalexin [From Keflex] Allergy Rash/Hives Verified 01/29/25 16:58 latex Allergy lip and Verified 01/29/25 16:58 tongue swelling Penicillins Allergy Rash/Hives Verified 01/29/25 16:58 Review of Systems ROS Statement: Those systems with pertinent positive or pertinent negative responses have been documented in the HPI. ROS Other: All systems not noted in ROS Statement are negative. Past Medical History Past Medical History: Asthma, Chest Pain / Angina, Heart Failure, COPD, CVA/TIA, Hypertension, Memory Impairment, Myocardial Infarction (OR) Additional Past Medical History / Comment(s): incisional hernia, hx CVA 2017 and CVA June 22, 2020-generalized weakness and memory impairment, heart murmur,uses oxygen 2 Liters [place] @[facility] prn, hospitalized in [place] May 2022 for chest pain-no current problems, admitted one night [facility] [place] April 2023 for COPD Last Myocardial Infarction Date:: 2009 History of Any Multi-Drug Resistant Organisms: None Reported Past Surgical History: Bariatric Surgery, Section, Cholecystectomy, Heart Catheterization Additional Past Surgical History / Comment(s): c sections x 3. Sleeve gastrectomy 09-16-22 Past Anesthesia/Blood Transfusion Reactions: No Reported Reaction Additional Past Anesthesia/Blood Transfusion Reaction / Comment(s): no problems with prior blood transfusions Past Psychological History: No Psychological Hx Reported Smoking Status: Never smoker Past Alcohol Use History: None Reported Past Drug Use History: None Reported - Past Family History Mother Family Medical History: Coronary Artery Disease (CAD), Hypertension Father Family Medical History: Coronary Artery Disease (CAD), Hypertension General Exam Limitations: no limitations General appearance: alert, in no apparent distress Head exam: Present: atraumatic, normocephalic Eye exam: Present: normal appearance, PERRL ENT exam: Present: normal exam Neck exam: Present: normal inspection. Absent: tenderness, meningismus Respiratory exam: Present: normal lung sounds bilaterally. Absent: respiratory distress, wheezes Cardiovascular Exam: Present: regular rate, normal rhythm GI/Abdominal exam: Present: tenderness, other (Transverse lower abdominal incision complete dehiscence with erythema and foul-smelling drainage) Neurological exam: Present: alert, oriented X3, CN II-XII intact Psychiatric exam: Present: normal affect, normal mood Course Vital Signs 01/29/25 01/29/25 16:54 18:43 Temperature 98.2 F Pulse Rate 85 79 Respiratory 16 18 Rate Blood Pressure 104/59 118/64 O2 Sat by Pulse 97 100 Oximetry Medical Decision Making - Medical Decision Making Was pt. sent in by a medical professional or institution (YUMIKO Almonte, SUPERVISOR AUDIT [employer]ERKS, urgent care, hospital, or fci...) When possible be specific @ -No Did you speak to anyone other than the patient for history (EMS, parent, family, police, friend...)? What history was obtained from this source @ -No Did you review nursing and triage notes (agree or disagree)? Why? @ -I reviewed and agree with nursing and triage notes Were old charts reviewed (outside hosp., previous admission, EMS record, old EKG, old radiological studies, urgent care reports/EKG's, fci records)? Report findings @ -No old charts were reviewed Differential Diagnosis : surgical incision dehiscence, sepsis EKG interpreted by me (3pts min.). @ -As above X-rays interpreted by me (1pt min.). @ -None done CT interpreted by me (1pt min.). @ -None done U/S interpreted by me (1pt. min.). @ -None done What testing was considered but not performed or refused? (CT, X-rays, U/S, labs)? Why? @ -None What meds were considered but not given or refused? Why? @ -None Did you discuss the management of the patient with other professionals (professionals i.e. YUMIKO Almonte, SUPERVIS[employer], lab, RT, psych nurse, clinical social worker, manager federal, teacher, chief communications officer, top case assembler)? Give summary @ -Discussed with the transfer team at [facility], accepting physician Dr. Bright Was smoking cessation discussed for >3mins.? @ -No Was critical care preformed (if so, how long)? @ -No Were there social determinants of health that impacted care today? How? (Homelessness, low income, unemployed, alcoholism, drug addiction, transportation, low edu. Level, literacy, decrease access to med. care, fci, rehab)? @ -No Was there de-escalation of care discussed even if they declined (Discuss DNR or withdrawal of care, Hospice)? DNR status @ -No What co-morbidities impacted this encounter? (DM, HTN, Smoking, COPD, CAD, Can cer, CVA, ARF, Chemo, Hep., AIDS, mental health diagnosis, sleep apnea, morbid obesity)? @ -Recent panniculectomy with Dr. Leonardo Was patient admitted / discharged? Hospital course, mention meds given and route, prescriptions, significant lab abnormalities, going to OR and other pertinent info. @ -The 9-year-old female with transverse lower abdominal surgical incision dehiscence with foul-smelling drainage. Patient had a wound VAC but this apparently did not work well and she has had some debridement performed at [facility]. Today the wound is foul-smelling and there is copious drainage. Antibiotics are initiated including Levaquin and vancomycin secondary to cephalosporin and penicillin allergy. Patient is given fluid bolus. She has a lactic acid 3.1 and a mildly elevated white blood cell count. She will be transferred to [facility] for further evaluation and continuity of care. Undiagnosed new problem with uncertain prognosis? @ -No Drug Therapy requiring intensive monitoring for toxicity (Heparin, Nitro, Insulin, Cardizem)? @ -No Were any procedures done? @ -No Diagnosis/symptom? @Surgical wound dehiscence and infection Acute, or Chronic, or Acute on Chronic? @Acute Uncomplicated (without systemic symptoms) or Complicated (systemic symptoms)? @ -Default Side effects of treatment? @ -No Exacerbation, Progression, or Severe Exacerbation? @ -No Poses a threat to life or bodily function? How? (Chest pain, USA, OR, pneumonia, PE, COPD, DKA, ARF, appy, cholecystitis, CVA, Diverticulitis, Homicidal, Suicidal, threat to staff... and all critical care pts) @ -Yes, sepsis - Lab Data Result diagrams: 01/29/25 17:38 01/29/25 17:38 Lab Results 01/29/25 01/29/25 01/29/25 Range/Units 17:38 17:38 17:38 WBC 10.8 H (3.8-10.6) k/uL RBC 3.20 L (3.80-5.40) m/uL Hgb 8.9 L (11.4-16.0) gm/dL Hct 29.9 L (34.0-46.0) % MCV 93.4 (80.0-100.0) fL MCH 27.7 (25.0-35.0) pg MCHC 29.6 L (31.0-37.0) g/dL RDW 15.9 H (11.5-15.5) % Plt Count 423 (150-450) k/uL MPV 7.7 Neutrophils % 72 % Lymphocytes % 12 % Monocytes % 9 % Eosinophils % 6 % Basophils % 0 % Neutrophils # 7.7 (1.3-7.7) k/uL Lymphocytes # 1.2 (1.0-4.8) k/uL Monocytes # 1.0 (0-1.0) k/uL Eosinophils # 0.7 (0-0.7) k/uL Basophils # 0.0 (0-0.2) k/uL Hypochromasia Marked PT 13.8 H (10.0-12.5) sec INR 1.3 H (<1.2) APTT 30.9 H (22.0-30.0) sec Sodium 138 (137-145) mmol/L Potassium 5.2 H (3.5-5.1) mmol/L Chloride 105 (98-107) mmol/L Carbon Dioxide 26 (22-30) mmol/L Anion Gap 7 mmol/L BUN 28 H (7-17) mg/dL Creatinine 1.39 H (0.52-1.04) mg/dL Est GFR (CKD-EPI)AfAm 49 (>60 ml/min/1.73 sqM) Est GFR (CKD-EPI)NonAf 42 (>60 ml/min/1.73 sqM) Glucose 117 H (74-99) mg/dL Lactic Ac Sepsis Rflx Plasma Lactic Acid Earl (0.7-2.0) mmol/L Calcium 8.1 L (8.4-10.2) mg/dL Total Bilirubin 0.5 (0.2-1.3) mg/dL AST 22 (14-36) U/L ALT 13 (4-34) U/L Alkaline Phosphatase 60 (38-126) U/L Total Protein 5.3 L (6.3-8.2) g/dL Albumin 2.4 L (3.5-5.0) g/dL 01/29/25 01/29/25 Range/Units 17:38 17:59 WBC (3.8-10.6) k/uL RBC (3.80-5.40) m/uL Hgb (11.4-16.0) gm/dL Hct (34.0-46.0) % MCV (80.0-100.0) fL MCH (25.0-35.0) pg MCHC (31.0-37.0) g/dL RDW (11.5-15.5) % Plt Count (150-450) k/uL MPV Neutrophils % % Lymphocytes % % Monocytes % % Eosinophils % % Basophils % % Neutrophils # (1.3-7.7) k/uL Lymphocytes # (1.0-4.8) k/uL Monocytes # (0-1.0) k/uL Eosinophils # (0-0.7) k/uL Basophils # (0-0.2) k/uL Hypochromasia PT (10.0-12.5) sec INR (<1.2) APTT (22.0-30.0) sec Sodium (137-145) mmol/L Potassium (3.5-5.1) mmol/L Chloride (98-107) mmol/L Carbon Dioxide (22-30) mmol/L Anion Gap mmol/L BUN (7-17) mg/dL Creatinine (0.52-1.04) mg/dL Est GFR (CKD-EPI)AfAm (>60 ml/min/1.73 sqM) Est GFR (CKD-EPI)NonAf (>60 ml/min/1.73 sqM) Glucose (74-99) mg/dL Lactic Ac Sepsis Rflx Y Plasma Lactic Acid Earl 3.3 H* (0.7-2.0) mmol/L Calcium (8.4-10.2) mg/dL Total Bilirubin (0.2-1.3) mg/dL AST (14-36) U/L ALT (4-34) U/L Alkaline Phosphatase (38-126) U/L Total Protein (6.3-8.2) g/dL Albumin (3.5-5.0) g/dL Disposition Clinical Impression: Dehiscence of incision Disposition: OTHER INSTITUTION NOT DEFINED Condition: Stable Is patient prescribed a controlled substance at d/c from ED?: No Referrals: Nonstaff,Physician [REFERRING] - 1-2 days Time of Disposition: 18:49 - Out of Hospital Transfer - Req. Specs Out of Hospital Transfer - Requested Specifics: Other Emergency Center (Transfer to [facility])
[2025-01-29] MEDS: HYDROmorphone 0.5 MG/0.5 ML SYRINGE IVP STA ×2 (17:33→19:09)
[2025-01-29] MEDS: LEVOFLOXACIN 500MG-D5W PMX 500 MG in DEXTROSE/WATER 1 100ML.BAG IVPB STA (17:33)
[2025-01-29] MEDS: SODIUM CHLORIDE 0.9% 1,000 ML IV ONE (17:37)
[2025-01-29 17:43] LABS: Basophils % (A) 0 %; Eosinophils # (A) 0.7 k/uL (0-0.7); Eosinophils % (A) 6 %; HCT 29.9 % (34.0-46.0); HGB 8.9 gm/dL (11.4-16.0); Hypochromasia Marked; Lymphocytes # (A) 1.2 k/uL (1.0-4.8); Lymphocytes % (A) 12 %; MCH 27.7 pg (25.0-35.0); MCHC 29.6 g/dL (31.0-37.0); MCV 93.4 fL (80.0-100.0); Mean Platelet Volume 7.7; Monocytes % (A) 9 %; Neutrophils # (A) 7.7 k/uL (1.3-7.7); Neutrophils % (A) 72 %; Platelet Count 423 k/uL (150-450); RDW 15.9 % (11.5-15.5); WBC 10.8 k/uL (3.8-10.6)
[2025-01-29 17:54] LABS: ALT 13 U/L (4-34); AST 22 U/L (14-36); African American GFR (CKD) 49 (>60 ml/min/1.73 sqM); Albumin 2.4 g/dL (3.5-5.0); Alkaline Phosphatase 60 U/L (38-126); Anion Gap 7 mmol/L; Blood Urea Nitrogen 28 mg/dL (7-17); Calcium 8.1 mg/dL (8.4-10.2); Carbon Dioxide 26 mmol/L (22-30); Chloride 105 mmol/L (98-107); Glucose 117 mg/dL (74-99); Non-African American GFR(CKD) 42 (>60 ml/min/1.73 sqM); Potassium 5.2 mmol/L (3.5-5.1); Sodium 138 mmol/L (137-145); Total Bilirubin 0.5 mg/dL (0.2-1.3); Total Protein 5.3 g/dL (6.3-8.2)
[2025-01-29 17:59] LABS: INR 1.3 (<1.2); Partial Thromboplastin Time 30.9 sec (22.0-30.0); Prothrombin Time 13.8 sec (10.0-12.5)
[2025-01-29] MEDS: VANCOMYCIN 2,250 MG in SODIUM CHLORIDE 0.9% 500 ML 500 ML IVPB ONE (18:08)
[2025-01-29 18:44] VITALS: BP 118/64; PULSE 79; RESP 18
[2025-01-30] MEDS ORDERED: VANCOMYCIN 2,000 MG in SODIUM CHLORIDE 0.9% 500 ML 500 ML IVPB SCH (12:00)
== END 2025-01-29 19:15 | disposition other institution (70) ==
LOC: EC 16:52
DX: T81.30XA Disruption of wound, unspecified, initial encounter (principal); G89.18 Other acute postprocedural pain; L98.7 Excessive and redundant skin and subcutaneous tissue
CPT/HCPCS: 36415; 80053; 83605; 85025; 85610; 85730; 87040; 99284; 96365; 96368; 96375; 96376; J3370; J1956; J1171